=== PATIENT | female | born 1955 | race Caucasian/White ===

== ENCOUNTER → 2017-01-13 | Outpatient (CLI) | payer OTHER ==
[~2017-01-13] MED LIST: PHEN37.585 PO
== END | disposition home or self-care (01) ==
LOC: C.LABSPEC 17:23
PROVIDERS: ATTEND Dermatology
DX: I87.2 Venous insufficiency (chronic) (peripheral) (principal)

== ENCOUNTER → 2017-01-13 | Outpatient (CLI) | payer OTHER | END | disposition home or self-care (01) | LOC: C.PATHSPEC 17:35 | PROVIDERS: ATTEND Dermatology | DX: B07.9 Viral wart, unspecified (principal); C44.529 Squamous cell carcinoma of skin of other part of trunk ==

== ENCOUNTER → 2017-06-05 | Outpatient (CLI) | payer OTHER ==
[2017-06-05 12:04] LABS: BASO % 0.9 %; BASO ABS # 0.04 K/uL (0-0.2); COMPLETE YES; EOS % 1.6 %; HEMATOCRIT 41.7 % (37-47); IG% 0.2 %; LYMPH % 36.8 %; LYMPH ABS # 1.65 K/uL (1.2-3.4); MEAN CELL VOLUME 92.1 fL (80-100); MEAN CORPUSCULAR HEMOGLOBIN 32.5 pg (25-34); MEAN CORPUSCULAR HGB CONC 35.3 g/dl (32-36); MONO % 6.3 %; NEUT % 54.2 %; PLATELET COUNT 171 K/uL (130-400); RED BLOOD COUNT 4.53 M/uL (4.2-5.4); WHITE BLOOD COUNT 4.48 K/uL (4.8-10.8)
[2017-06-05 12:17] LABS: ALT/SGPT 47 U/L (12-78); AST/SGOT 44 U/L (15-37); BLOOD UREA NITROGEN 18 mg/dl (7-18); BUN/CREATININE RATIO 21.6 (10-20); CALCIUM 8.5 mg/dl (8.5-10.1); CARBON DIOXIDE 28 mmol/L (21-32); CHLORIDE 106 mmol/L (98-107); CREATININE 0.82 mg/dl (0.60-1.20); GLUCOSE 112 mg/dl (70-99); POTASSIUM 3.9 mmol/L (3.5-5.1); SODIUM 139 mmol/L (136-145)
[2017-06-05 12:28] LABS: ALB/GLOB RATIO 1.2 (0.9-2); ALKALINE PHOSPHATASE 118 U/L (45-117)
== END | disposition home or self-care (01) ==
LOC: C.LAB1850 10:08
PROVIDERS: ATTEND Family Medicine
DX: Z00.00 Encounter for general adult medical examination without abnormal findings (principal)

== ENCOUNTER → 2017-09-16 | Outpatient (CLI) | payer OTHER | END | disposition home or self-care (01) | LOC: C.LABSPEC 12:32 | PROVIDERS: ATTEND Physician Assistant | DX: N89.8 Other specified noninflammatory disorders of vagina (principal); M54.5 Low back pain ==

== ENCOUNTER → 2017-09-29 | Outpatient (CLI) | payer OTHER | END | disposition home or self-care (01) | LOC: C.PAPS 10:24 | PROVIDERS: ATTEND Obstetrics & Gynecology | DX: Z01.419 Encounter for gynecological examination (general) (routine) without abnormal findings (principal) ==

== ENCOUNTER → 2018-01-05 | Outpatient (CLI) | payer OTHER ==
[2018-01-05 13:06] LABS: HEMOGLOBIN A1C 4.7 % (4.5-5.6)
[2018-01-05 13:11] LABS: ALKALINE PHOSPHATASE 107 U/L (45-117); ALT/SGPT 27 U/L (12-78); AST/SGOT 22 U/L (15-37); BLOOD UREA NITROGEN 11 mg/dl (7-18); CALCIUM 8.9 mg/dl (8.5-10.1); CARBON DIOXIDE 27 mmol/L (21-32); CHOLESTEROL 166 mg/dl (0-200); CREATININE 0.84 mg/dl (0.60-1.20); GLUCOSE 86 mg/dl (70-99); LDL CHOLESTEROL CALCULATED 94 mg/dl; SODIUM 139 mmol/L (136-145); TOTAL PROTEIN 7.3 gm/dl (6.4-8.2)
== END | disposition home or self-care (01) ==
LOC: C.LAB1850 10:32
PROVIDERS: ATTEND Family Medicine
DX: R74.8 Abnormal levels of other serum enzymes (principal); I10 Essential (primary) hypertension; E55.9 Vitamin D deficiency, unspecified; E88.81 Metabolic syndrome and other insulin resistance

== ENCOUNTER 2021-09-10 17:23 | Inpatient (IN) ==
[2021-09-10 17:58] LABS: Basophils # (auto) 0.02 K/uL (0-0.2); Basophils % (auto) 0.3 %; Eosinophils % (auto) 1.7 %; Hematocrit (blood only) 42.9 % (37-47); Hemoglobin 15.1 g/dL (12.0-16.0); Immature Granulocytes # (auto) 0.01 K/uL (0.00-0.02); Immature Granulocytes % (auto) 0.2 %; Lymphocytes # (auto) 1.68 K/uL (1.2-3.4); Lymphocytes % (auto) 28.7 %; Mean Corpuscular Hgb Conc 35.2 g/dL (32-36); Mean Corpuscular Volume 90.9 fL (80-100); Mean Platelet Volume 9.7 fL (7.4-10.4); Monocytes # (auto) 0.45 K/uL (0.11-0.59); Monocytes % (auto) 7.7 %; Neutrophils # (auto) 3.59 K/uL (1.4-6.5); Neutrophils % (auto) 61.4 %; Platelet Count 157 K/uL (130-400); RDW Coefficient of Variation 13.4 % (11.5-14.5); RDW Standard Deviation 44.4 fL (36.4-46.3); Red Blood Count 4.72 M/uL (4.2-5.4); White Blood Count 5.85 K/uL (4.8-10.8)
[2021-09-10 18:12] LABS: Appearance Urine Clear (Clear); Bacteria Urine Automated Negative (Negative); Bilirubin Urine Negative (Negative); Blood Urine 1+ (Negative); Cast Urine Automated 0 /lpf (0-5); Color Urine Yellow; Epithelial Cell Urine Auto 0-5 /lpf (0-5); Glucose Urine UA Negative (Negative); Ketones Urine Negative (Negative); Leukocyte Esterase Urine Negative (Negative); Nitrite Urine Negative (Negative); Protein Urine Negative (Negative); RBC Urine Automated 0-4 /hpf (0-4); Specific Gravity Urine 1.007 (1.000-1.030); Urobilinogen Urine Negative (Negative); pH Urine 6.5 (4.5-7.5)
[2021-09-10] MEDS ORDERED: NITROGLYCERIN 2% OINTMENT 30GM TUBE EXT STA ×2 (18:23→19:42)
[2021-09-10] MEDS ORDERED: ASPIRIN CHEW 324 MG PO STA (18:23)
--- NOTE | 2021-09-10 18:29 | Emergency Department Note ---
Impression & Plan Precordial chest pain, Hypertension, Elevated troponin ED Provider Note NAME: TIMMY MCLAUGHLIN AGE: 66 SEX: F : 1955 ARRIVES VIA: Walk-In INFORMANT: [Patient] ED PROVIDER(S): [Kings Falk MD] CHIEF COMPLAINT: Hypertension, chest pain HISTORY OF PRESENT ILLNESS: The patient is a 66-year-old female who presents with about 5 hours of right sided chest pressure that seemed to move down the right arm. She felt some into her neck as well. The pressure was mild at a 3/10. The patient was active when things began, she did not think increased activity worsened things per se. She states that since resting here in the ER, she does feel a bit better. The patient's blood pressure was high today at 167/105. She does take losartan for blood pressure. The patient denies any shortness of breath, nausea or sweating. She has no diagnosed coronary disease however her father, mother and sister have coronary disease. The patient did have a stress test years ago and did well. The patient spoke with cardiology, she was referred to the ER for work-up. REVIEW OF SYSTEMS: See HPI for pertinent positives and negatives. A total of ten systems were reviewed and were otherwise negative. PMHx/PSHx: See Below SOCIAL HISTORY: See Below. PHYSICAL EXAM: GENERAL: Patient is in no acute distress. HEENT: No acute trauma, normocephalic atraumatic, mucous membranes moist, no nasal congestion, no scleral icterus. NECK: No stridor, no adenopathy, no meningismus, trachea is midline. LUNGS: Clear to auscultation bilaterally, no wheeze, no rhonchi, breath sounds equal. Chest: Nontender chest wall. HEART: Without murmurs gallops or rubs, regular rate and rhythm. ABDOMEN: Soft, nontender, bowel sounds positive, no hernias, no peritonitis. EXTREMITIES: No cyanosis or edema, full range of motion of all the joints without pain or difficulty, no signs for acute trauma. NEUROLOGIC: Oriented x 3, no acute motor or sensory deficits, no focal weakness. SKIN: No rash, no jaundice, no diaphoresis. DIFFERENTIAL DIAGNOSIS: Cardiac ischemia, aortic dissection, pulmonary embolism, pneumothorax, pneumonia, pericarditis, myocarditis, esophageal rupture, GERD, cholecystitis, pancreatitis, musculoskeletal, as well as other pathologies. EMERGENCY DEPARTMENT COURSE/PROCEDURES: ECG: Indication was chest pain. The ECG shows a normal sinus rhythm with a rate of 75. There is no ST elevation, no PVCs. The QTC is 444 Continuous Cardiac Monitoring: An order was placed for continuous cardiac monitoring. The monitor shows a rate of 78 with normal sinus rhythm. MEDICAL DECISION MAKING: There is no leukocytosis or concerning anemia. There is a normal platelet count. No significant electrolyte abnormality or renal failure. No concerning liver enzyme elevation. No evidence for thyroid dysfunction. ECG shows a normal sinus rhythm, no obvious ischemia. Cardiac enzyme testing x1 is slightly elevated consistent with cardiac injury or strain. Urinalysis does not show infection. Chest x-ray does not show CHF, pneumonia or pneumothorax. On exam, there was no chest wall soreness. The patient was no longer having any real chest discomfort while resting on the stretcher. The patient was given oral aspirin, she was given nitroglycerin paste. Patient presents with precordial chest pain with some pain radiation to her right arm. She does have a strong family history of coronary disease. She has an elevated troponin. With her history, with her laboratory findings, I do think a hospital stay is warranted. I spoke with the patient, I talked with case management. The on-call hospitalist was consulted. Past Med/Surg History Medical History Anxiety Basal cell carcinoma (BCC) hx Benign essential hypertension Chronic low back pain Depression History of squamous cell carcinoma in situ of skin Hx of varicose veins Internal hemorrhoids Osteoporosis Tubular adenoma of colon Vitamin D deficiency Surgical History H/O abdominoplasty History of basal cell carcinoma (BCC) excision History of bunionectomy History of section History of colonoscopy History of repair of rotator cuff History of squamous cell carcinoma excision Hx of breast implants, bilateral S/P tubal ligation Family History (Updated 07/03/21 @ 11:24 by Fabiola Mena RN) Father , Jun 2020 Diabetes Coronary heart disease Mother Osteoporosis Coronary heart disease Sister Coronary heart disease Sarcoidosis Lung disease Other Heart disease No family history of adverse response to anesthesia Denies family history of Ovarian cancer Prostate cancer Myocardial infarction Breast cancer Lung cancer Colorectal cancer Uterine cancer Social History Smoking Status: Never smoker Second Hand Exposure: No; Hx Alcohol Use: Yes Alcohol type: hard liquor Alcohol Intake Frequency Comment: SOCIALLY Hx Substance Use: No Preferred Language: Thai Communication Ability: Effective Visual Impairment: No Limitations Hearing Ability: Normal 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 Beliefs That Will Affect Care: None marital status: Current Living Situation: Alone 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al status: employed 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: [employer]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[employer] AT [employer] Feels Safe at Home: Yes caffeine: Yes during the past year weight has: increased > 10 lbs Dental Care, Regularly: Yes Physical Activity Frequency: 1-2 Times per Week Seatbelt Use: always Sunscreen Use: Yes Assistive Devices: Contacts and Glasses Allergies Allergies Allergy/AdvReac Type Severity Reaction Status Date / Time No Known Drug Allergies Allergy Unknown Verified 09/05/21 09:31 Home Meds Previous Rx's Medication Instructions Recorded hydroxyzine HCl 25 mg tablet 25 mg PO Q8H PRN #30 tab 09/12/20 bupropion HCl 300 mg 24 hr tablet, 300 mg PO QAM #90 tab 06/06/21 extended release losartan 50 mg tablet 50 mg PO QAM #90 tab 06/06/21 naproxen 500 mg tablet 500 mg PO .COMPLEX #60 tab 07/03/21 estradiol 10 mcg vaginal tablet See Rx Instructions PV .COMPLEX 90 09/03/21 Days #24 tab Results & Data (ED) Vital Signs Vital Signs - 24 hr 09/10/21 17:27 09/10/21 17:52 09/10/21 19:24 Temperature 36.8 C Temperature Source Oral Pulse Rate 79 Pulse Rate [Finger] 78 75 Pulse Rhythm [Finger] Regular Regular Pulse Strength [Finger] Normal Normal Respiratory Rate 20 18 16 Respiratory Effort / Characteristics Non-Labored Non-Labored Spontaneous Respiratory Depth Normal Normal Respiratory Pattern Regular Blood Pressure 176/116 H Blood Pressure [Right Arm] 149/108 H 164/100 H Blood Pressure Mean 136 Blood Pressure Mean [Right Arm] 121 121 Blood Pressure Position Sitting Blood Pressure Position [Right Arm] Sitting Semi-fowlers Pulse Oximetry 99 100 98 Oxygen Delivery Method Room Air Room Air Room Air Sepsis Recent Fever Within 48 Hours No Sepsis New/Unexplained Change in Mental Status No Sepsis Action Taken by Nursing No Action Required Home Medications Current Medication List: was personally reviewed by me Laboratory Data Attestation: I reviewed the patient's lab results. Result diagrams: 09/10/21 17:45 09/10/21 17:45 Lab Results 09/10/21 09/10/21 09/10/21 Range/Units 17:45 17:45 17:45 WBC 5.85 (4.8-10.8) K/uL RBC 4.72 (4.2-5.4) M/uL Hgb 15.1 (12.0-16.0) g/dL Hct 42.9 (37-47) % MCV 90.9 (80-100) fL MCH 32.0 (25-34) pg MCHC 35.2 (32-36) g/dL RDW Std Deviation 44.4 (36.4-46.3) fL RDW Coeff of Calli 13.4 (11.5-14.5) % Plt Count 157 (130-400) K/uL MPV 9.7 (7.4-10.4) fL Immature Gran % (Auto) 0.2 % Neut % (Auto) 61.4 % Lymph % (Auto) 28.7 % [place] % (Auto) 7.7 % Eos % (Auto) 1.7 % Baso % (Auto) 0.3 % Neut # (Auto) 3.59 (1.4-6.5) K/uL Lymph # (Auto) 1.68 (1.2-3.4) K/uL [place] # (Auto) 0.45 (0.11-0.59) K/uL Eos # (Auto) 0.10 (0-0.5) K/uL Baso # (Auto) 0.02 (0-0.2) K/uL Immature Gran # (Auto) 0.01 (0.00-0.02) K/uL Sodium 138 (136-145) mmol/L Potassium 3.9 (3.5-5.1) mmol/L Chloride 104 (98-107) mmol/L Carbon Dioxide 26 (21-32) mmol/L Anion Gap 8 (3-11) BUN 15 (6-23) mg/dl Creatinine 0.85 (0.6-1.2) mg/dl Est Cr Clr Drug Dosing 74.3 ml/min Est GFR ( Amer) 83.9 ml/min Est GFR (Non-Af Amer) 72.4 ml/min BUN/Creatinine Ratio 17.6 (10-20) Glucose 99 (70-99(Fasting)) mg/dl Calcium 8.9 (8.5-10.1) mg/dl Magnesium (1.7-2.4) mg/dl Total Bilirubin 0.6 (0.2-1.0) mg/dl AST 17 (13-39) U/L ALT 16 (7-52) U/L Alkaline Phosphatase 95 (34-104) U/L Troponin I (0-0.04) ng/ml Total Protein 6.8 (6.0-8.3) gm/dl Albumin 4.1 (3.4-5.0) gm/dl Globulin 2.7 (2.5-4.0) gm/dl Albumin/Globulin Ratio 1.5 (0.9-2) TSH (0.300-4.500) uIu/ml Urine Color Yellow Urine Appearance Clear (Clear) Urine pH 6.5 (4.5-7.5) Ur Specific [place] 1.007 (1.000-1.030) Urine Protein Negative (Negative) Urine Glucose (UA) Negative (Negative) Urine Ketones Negative (Negative) Urine Blood 1+ H (Negative) Urine Nitrite Negative (Negative) Urine Bilirubin Negative (Negative) Urine Urobilinogen Negative (Negative) Ur Leukocyte Esterase Negative (Negative) Urine WBC (Auto) 1-5 (0-5) /hpf Urine RBC (Auto) 0-4 (0-4) /hpf U Hyaline Cast (Auto) 0 (0-5) /lpf U Epithel Cells (Auto) 0-5 (0-5) /lpf Urine Bacteria (Auto) Negative (Negative) 09/10/21 09/10/21 Range/Units 17:45 17:45 WBC (4.8-10.8) K/uL RBC (4.2-5.4) M/uL Hgb (12.0-16.0) g/dL Hct (37-47) % MCV (80-100) fL MCH (25-34) pg MCHC (32-36) g/dL RDW Std Deviation (36.4-46.3) fL RDW Coeff of Calli (11.5-14.5) % Plt Count (130-400) K/uL MPV (7.4-10.4) fL Immature Gran % (Auto) % Neut % (Auto) % Lymph % (Auto) % [place] % (Auto) % Eos % (Auto) % Baso % (Auto) % Neut # (Auto) (1.4-6.5) K/uL Lymph # (Auto) (1.2-3.4) K/uL [place] # (Auto) (0.11-0.59) K/uL Eos # (Auto) (0-0.5) K/uL Baso # (Auto) (0-0.2) K/uL Immature Gran # (Auto) (0.00-0.02) K/uL Sodium (136-145) mmol/L Potassium (3.5-5.1) mmol/L Chloride (98-107) mmol/L Carbon Dioxide (21-32) mmol/L Anion Gap (3-11) BUN (6-23) mg/dl Creatinine (0.6-1.2) mg/dl Est Cr Clr Drug Dosing ml/min Est GFR ( Amer) ml/min Est GFR (Non-Af Amer) ml/min BUN/Creatinine Ratio (10-20) Glucose (70-99(Fasting)) mg/dl Calcium (8.5-10.1) mg/dl Magnesium 1.8 (1.7-2.4) mg/dl Total Bilirubin (0.2-1.0) mg/dl AST (13-39) U/L ALT (7-52) U/L Alkaline Phosphatase (34-104) U/L Troponin I 0.08 H* (0-0.04) ng/ml Total Protein (6.0-8.3) gm/dl Albumin (3.4-5.0) gm/dl Globulin (2.5-4.0) gm/dl Albumin/Globulin Ratio (0.9-2) TSH 2.850 (0.300-4.500) uIu/ml Urine Color Urine Appearance (Clear) Urine pH (4.5-7.5) Ur Specific [place] (1.000-1.030) Urine Protein (Negative) Urine Glucose (UA) (Negative) Urine Ketones (Negative) Urine Blood (Negative) Urine Nitrite (Negative) Urine Bilirubin (Negative) Urine Urobilinogen (Negative) Ur Leukocyte Esterase (Negative) Urine WBC (Auto) (0-5) /hpf Urine RBC (Auto) (0-4) /hpf U Hyaline Cast (Auto) (0-5) /lpf U Epithel Cells (Auto) (0-5) /lpf Urine Bacteria (Auto) (Negative) Administered Medications Discontinued Medications Aspirin (Aspirin Chew 324 Mg) 324 mg PO NOW STA Stop: 09/10/21 18:24 Last Admin: 09/10/21 18:28 Dose: 324 mg Documented by: [id number] Nitroglycerin (Nitroglycerin 2% Ointment 30gm Tube) 1 inch EXT NOW STA Stop: 09/10/21 18:24 Last Admin: 09/10/21 18:32 Dose: 1 inch Documented by: [id number] Imaging Data Radiologist's Impression: Chest X-Ray 09/10/21 17:30 SINGLE VIEW CHEST CLINICAL HISTORY: Chest tightness. FINDINGS: An AP, portable, upright chest radiograph is compared to study dated 02/17/2020. Correlation is made with chest CT dated 12/25/2018. The cardiomediastinal silhouette is unremarkable. There is mild elevation of the right hemidiaphragm and bibasilar atelectasis. No airspace consolidation or large pleural effusion is identified. No pneumothorax is seen. The skeletal structures are osteopenic. The bony thorax is grossly intact. Degenerative change is noted in the shoulders and thoracic spine. IMPRESSION: No acute cardiopulmonary abnormality. ACT 112: Negative or not required by law. Electronically signed by: Kings Grant M.D. 09/10/2021 6:40 PM Discharge Plan Visit Data Chief Complaint: Hypertension Stated Complaint: HYPERTENSIVE, CHEST PRESSURE ED Provider: Kings Falk Discharge Problem: Precordial chest pain, Hypertension, Elevated troponin Patient Disposition: Admitted As Inpatient Condition: Fair Forms Stand Alone Forms: My [employer] Prescriptions Prescriptions: No Action bupropion HCl 300 mg tablet extended release 24 hr 300 mg PO QAM Qty: 90 RF: 1 losartan 50 mg tablet 50 mg PO QAM Qty: 90 RF: 1 estradiol 10 mcg tablet See Rx Instructions PV .COMPLEX 90 Days Qty: 24 RF: 1 hydroxyzine HCl 25 mg tablet 25 mg PO Q8H PRN (Reason: anxiety) Qty: 30 RF: 1 naproxen 500 mg tablet 500 mg PO .COMPLEX Qty: 60 RF: 1 Referrals Referrals: Ricotta,Mary M., DO [Primary Care Provider] -
[2021-09-10 18:30] LABS: Albumin Globulin Ratio 1.5 (0.9-2); Albumin Level 4.1 gm/dl (3.4-5.0); BUN Creatinine Ratio 17.6 (10-20); Bilirubin,Total 0.6 mg/dl (0.2-1.0); Calcium 8.9 mg/dl (8.5-10.1); Creatinine Clr Calc Pharmacy 74.3 ml/min; Est GFR (African American) 83.9 ml/min; Est GFR (Non-African American) 72.4 ml/min; Globulin 2.7 gm/dl (2.5-4.0); Potassium 3.9 mmol/L (3.5-5.1); Total Protein 6.8 gm/dl (6.0-8.3)
--- NOTE | 2021-09-10 18:42 | XRay Report ---
SINGLE VIEW CHEST CLINICAL HISTORY: Chest tightness. FINDINGS: An AP, portable, upright chest radiograph is compared to study dated 02/17/2020. Correlation is made with chest CT dated 12/25/2018. The cardiomediastinal silhouette is unremarkable. There is mi ld elevation of the right hemidiaphragm and bibasilar atelectasis. No airspace consolidation or large pleural effusion is identified. No pneumothorax is seen. The skeletal structures are osteopenic. The bony thorax is grossly intact. Degenerative change is noted in the shoulders and thoracic spine. IMPRESSION: No acute cardiopulmonary abnormality. ACT 112: Negative or not required by law. Electronically signed by: Kings Grant M.D. 09/10/2021 6:40 PM
[2021-09-10 19:31] LABS: Magnesium 1.8 mg/dl (1.7-2.4)
[2021-09-10 19:35] LABS: Troponin I 0.08 ng/ml (0-0.04)
--- NOTE | 2021-09-10 20:59 | History & Physical Report ---
Date of Service September 10, 2021 Assessment & Plan (1) Chest pain: Plan: Chest pain with activity presenting as cardiac in nature but uncertain etiology at this time - Elevated Troponin I with no dynamic ECG changes- trend both for peak and down trend or association with ECG changes - BP control to decrease double product- Labetolol PRN - NTG SL for chest pain - ECG with chest pain - Consider adding BB but may be limited with HR response - Symptoms currently gone - Pending her further troponin and symptomatology through the night - consider stress ECHO or invasive diagnostics - ECHO in AM (2) Elevated troponin: Plan: As above follow may be associated with elevated BP or associated with CAD (3) Hypertension: Plan: Uncontrolled with SBP baseline > 140 and DBP >90 - As above- will increase her Losartan to 100mg daily - renal indices normal and no protein in urine (4) Depression: Plan: Continue Bupropion (5) Anxiety: Plan: Continue Bupropion Continue Hydroxyzine (6) Dysmetabolic syndrome X: Plan: Lipid panel in the morning HGB A1c in morning weight loss History of Present Illness Primary Care Provider: Mary Castaneda, DO 66 YOF with past medical history of: HTN, atrophic vaginitis, obesity. Patient comes to the ER today for complaints of right sided chest pain while at work. 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 She did not stop working at that time. She did note that this was associated with right arm pain that went down to her elbow, and was also associated with nausea without vomiting. The pain was described as a pressure that just "hurt". She did leave work and went to her mother's house because she had a BP cuff and took her blood pressure noting that it was 160/100s. She called her PCP who discussed the case with her cardiology office and recommended patient come in for risk stratification. Patient denies this occurring previously, however does endorse noticing to be more short of breath with walking or going up and down her steps. She attributed this to increase in weight over the past couple months. Her dyspnea going up ~ 16 steps is associated with some pain in her upper left sternum and is relieved with rest. In the EMD the patient was given an asa and had topical nitro paste placed. She had an ECG performed which was without dynamic ST changes. She had routine labs drawn to include Troponin I and CXR. CXR was negative for acute cardio/pulmonary process, her Troponin I was elevated to 0.08. Upon evaluation the patient's BP was back to her baseline of 140/90. The patient has risk factors of family history of mother, dad, and sister with coronary stents or coronary interventions. Patient had a holter monitor from 2019 for palpitations hich was negative for arrythmia other than PAC and PVCs - she had a excercise stress test in 2019 that was negative for ischemia at 87% MPHR- and normal LVEF. She has uncontrolled HTN, does not smoke and social drinker. She is not on a daily asa or statin. Patient will be observed overnight, trend her Troponin I and ECG. Will remove her NTP to know if she is having symptoms or not. Will increase her Losartan to 100mg and add Labetalol IV PRN for SBP >180 and/OR DBP> 90. Allergies Allergy/AdvReac Type Severity Reaction Status Date / Time No Known Drug Allergies Allergy Unknown Verified 09/10/21 20:52 Home Medications Medication Instructions Recorded Confirmed Type hydroxyzine HCl 25 mg tablet 25 mg PO Q8H PRN #30 tab 09/12/20 09/10/21 Rx bupropion HCl 300 mg 24 hr tablet, 300 mg PO QAM #90 tab 06/06/21 09/10/21 Rx extended release losartan 50 mg tablet 50 mg PO QAM #90 tab 06/06/21 09/10/21 Rx estradiol 10 mcg vaginal tablet 10 mcg PV 2XWK 09/10/21 09/10/21 History naproxen 500 mg tablet 500 mg PO BID PRN 09/10/21 09/10/21 History Past Med/Surg History Medical History Anxiety Basal cell carcinoma (BCC) hx Benign essential hypertension Chronic low back pain Depression History of squamous cell carcinoma in situ of skin Hx of varicose veins Internal hemorrhoids Osteoporosis Tubular adenoma of colon Vitamin D deficiency Surgical History H/O abdominoplasty History of basal cell carcinoma (BCC) excision History of bunionectomy History of section History of colonoscopy History of repair of rotator cuff History of squamous cell carcinoma excision Hx of breast implants, bilateral S/P tubal ligation Family History Father , Jun 2020 Diabetes Coronary heart disease Mother Osteoporosis Coronary heart disease Sister Coronary heart disease Sarcoidosis Lung disease Other Heart disease No family history of adverse response to anesthesia Denies family history of Ovarian cancer Prostate cancer Myocardial infarction Breast cancer Lung cancer Colorectal cancer Uterine cancer Social History Smoking Status: Never smoker Second Hand Exposure: No; Hx Alcohol Use: Yes Alcohol type: hard liquor Alcohol Intake Frequency Comment: SOCIALLY Hx Substance Use: No Preferred Language: French Communication Ability: Effective Visual Impairment: No Limitations Hearing Ability: Normal Incident Response Consultant Required: No Beliefs That Will Affect Care: None marital status: Current Living Situation: Alone 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al status: employed 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 [employer] Feels Safe at Home: Yes caffeine: Yes during the past year weight has: increased > 10 lbs Dental Care, Regularly: Yes Physical Activity Frequency: 1-2 Times per Week Seatbelt Use: always Sunscreen Use: Yes Assistive Devices: Contacts and Glasses Review of Systems Review of Systems: REVIEW OF SYSTEMS: Constitutional: No fever, sweats or chills Eyes: No diplopia, no worsening or blurred vision ENT: normal hearing, no trouble swallowing Respiratory: (+) dyspnea, No cough, sputum, dyspnea at rest or on exertion Cardiovascular: (+) chest pain, tightness, NO palpitations Abdomen: No pain, nausea, vomiting, diarrhea or constipation Musculoskeletal: No joint pain, calf pain, swelling Neurologic: No weakness, numbness/tingling, or balance problems Psychiatric: No anxiety or depression Skin: No rash or itch Physical Exam Physical Exam: PHYSICAL EXAM: General: awake, alert, no apparent distress Head: Normocephalic, atraumatic ENT: PERRL, EOMI, no pharyngeal exudate, mucous membranes moist Neuro: AAO x 3, speech clear and appropriate, strength intact bilaterally 5/5, sensation intact and equal all extremities and dermatomes, no pronator drift Chest: equal rise and fall of the chest, no accessory muscle use, no heaves or thrills, Clear to auscultation, on room air, Cardiac: Regular rate and rhythm, telemetry reviewed, skin warm dry, cap refill <3 seconds, peripheral pulses +2 no JVD, no murmur, no edema- noted HTN GI: NABS x 4 quadrants, soft, nontender to palpation, no rebound, guarding or tenderness : Spontaneously voiding, no pain, no CVA tenderness, Extremities: Normal inspection, no peripheral edema or erythema, calfs nontender to palpation Psych: Normal mood and affect Skin: no rash or erythema Results & Data Results & Data ([facility]) Vital Signs (Past 12 Hours) Vital Signs Temp Pulse Pulse Resp BP BP Pulse Ox 09/10/21 19:24 75 16 164/100 H 98 09/10/21 17:52 78 18 149/108 H 100 09/10/21 17:27 36.8 C 79 20 176/116 H 99 Laboratory Results Abnormal lab results 09/10/21 09/10/21 Range/Units 17:45 17:45 Troponin I 0.08 H* (0-0.04) ng/ml Urine Blood 1+ H (Negative) HgbA1C on 09/26/20 = 5.1 Lipid panel on 09/26/20 = Dlljy=422, HBT=366, HDL=48, CH=390 Diagnostic Findings Chest X-Ray 09/10/21 17:30 SINGLE VIEW CHEST CLINICAL HISTORY: Chest tightness. FINDINGS: An AP, portable, upright chest radiograph is compared to study dated 02/17/2020. Correlation is made with chest CT dated 12/25/2018. The cardiomediastinal silhouette is unremarkable. There is mild elevation of the right hemidiaphragm and bibasilar atelectasis. No airspace consolidation or large pleural effusion is identified. No pneumothorax is seen. The skeletal structures are osteopenic. The bony thorax is grossly intact. Degenerative change is noted in the shoulders and thoracic spine. IMPRESSION: No acute cardiopulmonary abnormality. ACT 112: Negative or not required by law. Electronically signed by: Kings Grant M.D. 09/10/2021 6:40 PM Medications Administered Discontinued Medications Aspirin (Aspirin Chew 324 Mg) 324 mg PO NOW STA Stop: 09/10/21 18:24 Last Admin: 09/10/21 18:28 Dose: 324 mg Documented by: [id number] Nitroglycerin (Nitroglycerin 2% Ointment 30gm Tube) 1 inch EXT NOW STA Stop: 09/10/21 18:24 Last Admin: 09/10/21 18:32 Dose: 1 inch Documented by: [id number] Nitroglycerin (Nitroglycerin 2% Ointment 30gm Tube) 2 inch EXT NOW STA Stop: 09/10/21 19:43 Last Admin: 09/10/21 20:18 Dose: 2 inch Documented by: [id number] Additional Comments: Normal sinus rhythm Possible Left atrial enlargement Borderline ECG When compared with ECG of 29-APR-2006 09:54, QT has lengthened Code Status & VTE Plan Code Status CODE: FULL VTE: SCDs, Lovenox, ambulation VTE Prophylaxis Plan VTE Prophylaxis will be ordered: Yes Supervising Physician Co-Signing Physician Notes Patient seen and examined, chart reviewed, case discussed with NICOL Monique and I agree with the assessment and plan as above. In brief, patient is a pleasant 66yo female with history of HTN - poorly controlled of late - presenting with right sided chest pain while at work - radiation down right arm with nausea and vomiting. Some SOB with exertion and substernal chest discomfort with stairs. On exam patient is hypertensive, otherwise HD stable, NAD, CP free, topical nitro in place Skin - warm, dry, intact, no rashes/lesions HEENT - NC/AT, PERRL, MMM, Neck supple, No JVD, No bruits Heart - +S1/S2, regular, no m/r/g, no reproducible chest wall pain Lungs - CTA Abd - +BS, soft, NT/ND Ext- No edema Labs and images reviewed Troponin = 0.08 Last stress test 2018 - no inducible ischemia, 87% capacity Assessment/Plan - 66yo female with history of HTN presenting with right sided chest pain, elevated troponin of 0.08. -Trend troponin -Telemetry monitoring -Blood pressure control -2D echo -Possible cath vs stress in AM -Repeat A1C and lipids for risk stratification -Increase Losartan to 100mg daily for now to optimize BP PG Care Time/CCT Total # of Minutes Spent Total Time Spent with Patient: Total time spent is greater than 50% in coordination of care (as documented) at patient's floor/unit and/or counseling patient: Coding Level of Care Code INT OBSERVATION CARE 70M LVL 3 Diagnoses Chest pain R07.9 Elevated troponin R77.8 Hypertension I10 Hypertension type: unspecified Depression F32.9 Anxiety F41.9 Dysmetabolic syndrome X E88.81 (1) Hypertension Hypertension type: unspecified Qualified Code(s): I10 - Essential (primary) hypertension
[2021-09-10] MEDS ORDERED: LABETALOL HCL IV 5 MG/ML 20ML IV PRN (22:51)
[2021-09-10] MEDS ORDERED: NITROGLYCERIN SL 0.4 MG/TAB TAB SL PRN (22:51)
[2021-09-10] MEDS ORDERED: hydrOXYzine HCl 25 MG TAB PO PRN (22:51)
[2021-09-10] MEDS ORDERED: ACETAMINOPHEN 325 MG TAB PO PRN (22:51)
[2021-09-11] MEDS: ENOXAPARIN INJ 40 MG/0.4 ML SYR SQ SCH ×2 (00:49→20:47)
--- NOTE | 2021-09-11 07:51 | Hospitalist Progress Note ---
Date of Service September 11, 2021 Assessment & Plan (1) Chest pain: Plan: Chest pain with activity presenting as cardiac in nature at rest/activity and not relieved with rest when she went to her mother's house to check her BP last evening, which was significantly elevated EKG without ischemic changes currently and remains chest pain free with improvement in her blood pressure with increase in losartan to 100mg daily. Labetalol also available prn HTN (avoiding BB given HR 50-60s) Top 0.08--> 0.09 --> 0.08 but did have prodrome of CP/radiation to arm, and given strong family history, personal hx DM, cardiology consulted for eval for cardiac cath --> Had already eaten breakfast, but NPO currently in case able to squeeze in this afternoon per discussion with Dr Magaña today ECHO obtained this morning, not officially read yet ASA 81mg daily ordered A1c wnl Lipid panel with improvement -- statin intensity pending cath report (2) Elevated troponin: Plan: As above follow may be associated with elevated BP or associated with CAD Cards on consult Planning for cardiac catheterization given risk (3) Hypertension: Plan: Uncontrolled with SBP baseline > 140 and DBP >90 Increased losartan to 100mg daily, Cr wnl Bp currently 148/84 Labetalol available prn and continuing monitoring on telemetry (4) Depression: Plan: Continue Bupropion (5) Anxiety: Plan: Continue Bupropion, hydroxyzine (6) Dysmetabolic syndrome X: Plan: A1c 4.6 Lipid panel with improvement compared to prior values -- likely initiation of statin but will await cath and if evidence for CAD would start high intensity statin weight loss recommended -- she states this current episode scared her and she is ready to start taking better care of herself Plan: NPO for possible cath this afternoon if someone available, otherwise will need to be NPO after midnight and plan for AM would change to full admit if staying overnight Admission and Anticipated Discharge Date Admission Date: September 10, 2021 Supervising Physician Co-Signing Physician Notes PA Supervision Note: I did not personally see or examine the patient today, but I verified all hall points of SERAFIN Peace's assessment and plan with the following exceptions/additions: None Subjective Patient evaluated this morning. No further chest pain since admission. Bp improved and discussed continuing increased dose losartan as well as continuing ASA 81mg daily. Trop peak 0.09, repeat 0.08 and discussed could be from BP but will have cards eval to see if needing cath in future given family hx (sister 2 years younger had stent about 1-2 years ago, mom in 50-60s, dad in 70s). If not, can plan for d/c and close follow up. She follows with ángel Contreras and Danny Delcid as outpatient and states has appointment this . Discussed statin -- lipid panel is improved but given family history would want to consider being on something for this,. She states she would prefer not if she could and plans on watching diet/increasing activity. She denies any further nausea as had when she was going to her mom's to check BP as she knew she had a cuff and felt "off" but couldn't put her finger on it. No further recurrence. No chest pain, shortness of breath, reflux, abdominal pain, n/v/d at this time. Hopeful for discharge later today but did discuss if need for cath may require monitoring overnight pending when able to squeeze her in. Review of Systems Review of Systems: All systems reviewed & are unremarkable except as noted in HPI & below Physical Exam Physical Exam: General: awake, alert, no apparent distress, observed walking in the room Head: Normocephalic, atraumatic ENT: PERRL, EOMI, no pharyngeal exudate, mucous membranes moist Resp: CTAB, no w/c/r, on room air CV: RRR, no m/r/g, no edema, pulses palpable GI: +BS, soft, non-tender MSK/Neuro: moves all extremities, CN intact grossly, no facial droop/slurred speech Psych: AOx3, pleasant and cooperative Skin: warm, dry Results & Data Results & Data ([facility]) Vital Signs (Past 12 Hours) Vital Signs Temp Pulse Pulse Resp BP BP BP 09/11/21 06:14 75 09/11/21 03:00 36.5 C 71 20 139/83 09/10/21 23:41 79 09/10/21 22:57 36.6 C 78 18 168/89 H 09/10/21 22:14 83 16 156/92 H 09/10/21 21:00 76 16 162/86 H Pulse Ox 09/11/21 06:14 09/11/21 03:00 98 09/10/21 23:41 09/10/21 22:57 97 09/10/21 22:14 97 09/10/21 21:00 98 Laboratory Results 09/11/21 09/11/21 09/11/21 Range/Units 08:05 08:05 08:05 WBC 4.28 L (4.8-10.8) K/uL RBC 4.54 (4.2-5.4) M/uL Hgb 14.6 (12.0-16.0) g/dL Hct 40.8 (37-47) % MCV 89.9 (80-100) fL MCH 32.2 (25-34) pg MCHC 35.8 (32-36) g/dL RDW Std Deviation 43.6 (36.4-46.3) fL RDW Coeff of Calli 13.4 (11.5-14.5) % Plt Count 141 (130-400) K/uL MPV 9.5 (7.4-10.4) fL Immature Gran % (Auto) 0.0 % Neut % (Auto) 55.7 % Lymph % (Auto) 30.4 % [place] % (Auto) 10.7 % Eos % (Auto) 3.0 % Baso % (Auto) 0.2 % Neut # (Auto) 2.38 (1.4-6.5) K/uL Lymph # (Auto) 1.30 (1.2-3.4) K/uL [place] # (Auto) 0.46 (0.11-0.59) K/uL Eos # (Auto) 0.13 (0-0.5) K/uL Baso # (Auto) 0.01 (0-0.2) K/uL Immature Gran # (Auto) 0.00 (0.00-0.02) K/uL Sodium 140 (136-145) mmol/L Potassium 4.0 (3.5-5.1) mmol/L Chloride 107 (98-107) mmol/L Carbon Dioxide 27 (21-32) mmol/L Anion Gap 6 (3-11) BUN 13 (6-23) mg/dl Creatinine 0.77 (0.6-1.2) mg/dl Est Cr Clr Drug Dosing 82.0 ml/min Est GFR ( Amer) 94.6 ml/min Est GFR (Non-Af Amer) 81.6 ml/min BUN/Creatinine Ratio 16.9 (10-20) Glucose 93 (70-99(Fasting)) mg/dl Estimat Average Glucose 85 mg/dl Hemoglobin A1c 4.6 (4.5-5.6) % Calcium 8.6 (8.5-10.1) mg/dl Magnesium 1.9 (1.7-2.4) mg/dl Total Bilirubin (0.2-1.0) mg/dl AST (13-39) U/L ALT (7-52) U/L Alkaline Phosphatase (34-104) U/L Troponin I 0.08 H* (0-0.04) ng/ml Total Protein (6.0-8.3) gm/dl Albumin (3.4-5.0) gm/dl Globulin (2.5-4.0) gm/dl Albumin/Globulin Ratio (0.9-2) Triglycerides 91 (0-150) mg/dl Cholesterol 185 (0-200) mg/dl LDL Cholesterol, Calc 114 mg/dl VLDL Cholesterol, Calc 18 (0-30) mg/dl HDL Cholesterol 53 mg/dl Cholesterol/HDL Ratio 3.5 (0-5) TSH (0.300-4.500) uIu/ml Urine Color Urine Appearance (Clear) Urine pH (4.5-7.5) Ur Specific [place] (1.000-1.030) Urine Protein (Negative) Urine Glucose (UA) (Negative) Urine Ketones (Negative) Urine Blood (Negative) Urine Nitrite (Negative) Urine Bilirubin (Negative) Urine Urobilinogen (Negative) Ur Leukocyte Esterase (Negative) Urine WBC (Auto) (0-5) /hpf Urine RBC (Auto) (0-4) /hpf U Hyaline Cast (Auto) (0-5) /lpf U Epithel Cells (Auto) (0-5) /lpf Urine Bacteria (Auto) (Negative) SARS-CoV-2, RNA, NAAT (NEGATIVE) 09/10/21 09/10/21 09/10/21 Range/Units 23:26 20:45 17:45 WBC (4.8-10.8) K/uL RBC (4.2-5.4) M/uL Hgb (12.0-16.0) g/dL Hct (37-47) % MCV (80-100) fL MCH (25-34) pg MCHC (32-36) g/dL RDW Std Deviation (36.4-46.3) fL RDW Coeff of Calli (11.5-14.5) % Plt Count (130-400) K/uL MPV (7.4-10.4) fL Immature Gran % (Auto) % Neut % (Auto) % Lymph % (Auto) % [place] % (Auto) % Eos % (Auto) % Baso % (Auto) % Neut # (Auto) (1.4-6.5) K/uL Lymph # (Auto) (1.2-3.4) K/uL [place] # (Auto) (0.11-0.59) K/uL Eos # (Auto) (0-0.5) K/uL Baso # (Auto) (0-0.2) K/uL Immature Gran # (Auto) (0.00-0.02) K/uL Sodium (136-145) mmol/L Potassium (3.5-5.1) mmol/L Chloride (98-107) mmol/L Carbon Dioxide (21-32) mmol/L Anion Gap (3-11) BUN (6-23) mg/dl Creatinine (0.6-1.2) mg/dl Est Cr Clr Drug Dosing ml/min Est GFR ( Amer) ml/min Est GFR (Non-Af Amer) ml/min BUN/Creatinine Ratio (10-20) Glucose (70-99(Fasting)) mg/dl Estimat Average Glucose mg/dl Hemoglobin A1c (4.5-5.6) % Calcium (8.5-10.1) mg/dl Magnesium (1.7-2.4) mg/dl Total Bilirubin (0.2-1.0) mg/dl AST (13-39) U/L ALT (7-52) U/L Alkaline Phosphatase (34-104) U/L Troponin I 0.09 H* (0-0.04) ng/ml Total Protein (6.0-8.3) gm/dl Albumin (3.4-5.0) gm/dl Globulin (2.5-4.0) gm/dl Albumin/Globulin Ratio (0.9-2) Triglycerides (0-150) mg/dl Cholesterol (0-200) mg/dl LDL Cholesterol, Calc mg/dl VLDL Cholesterol, Calc (0-30) mg/dl HDL Cholesterol mg/dl Cholesterol/HDL Ratio (0-5) TSH 2.850 (0.300-4.500) uIu/ml Urine Color Urine Appearance (Clear) Urine pH (4.5-7.5) Ur Specific [place] (1.000-1.030) Urine Protein (Negative) Urine Glucose (UA) (Negative) Urine Ketones (Negative) Urine Blood (Negative) Urine Nitrite (Negative) Urine Bilirubin (Negative) Urine Urobilinogen (Negative) Ur Leukocyte Esterase (Negative) Urine WBC (Auto) (0-5) /hpf Urine RBC (Auto) (0-4) /hpf U Hyaline Cast (Auto) (0-5) /lpf U Epithel Cells (Auto) (0-5) /lpf Urine Bacteria (Auto) (Negative) SARS-CoV-2, RNA, NAAT NEGATIVE (NEGATIVE) 09/10/21 09/10/21 09/10/21 Range/Units 17:45 17:45 17:45 WBC (4.8-10.8) K/uL RBC (4.2-5.4) M/uL Hgb (12.0-16.0) g/dL Hct (37-47) % MCV (80-100) fL MCH (25-34) pg MCHC (32-36) g/dL RDW Std Deviation (36.4-46.3) fL RDW Coeff of Calli (11.5-14.5) % Plt Count (130-400) K/uL MPV (7.4-10.4) fL Immature Gran % (Auto) % Neut % (Auto) % Lymph % (Auto) % [place] % (Auto) % Eos % (Auto) % Baso % (Auto) % Neut # (Auto) (1.4-6.5) K/uL Lymph # (Auto) (1.2-3.4) K/uL [place] # (Auto) (0.11-0.59) K/uL Eos # (Auto) (0-0.5) K/uL Baso # (Auto) (0-0.2) K/uL Immature Gran # (Auto) (0.00-0.02) K/uL Sodium 138 (136-145) mmol/L Potassium 3.9 (3.5-5.1) mmol/L Chloride 104 (98-107) mmol/L Carbon Dioxide 26 (21-32) mmol/L Anion Gap 8 (3-11) BUN 15 (6-23) mg/dl Creatinine 0.85 (0.6-1.2) mg/dl Est Cr Clr Drug Dosing 74.3 ml/min Est GFR ( Amer) 83.9 ml/min Est GFR (Non-Af Amer) 72.4 ml/min BUN/Creatinine Ratio 17.6 (10-20) Glucose 99 (70-99(Fasting)) mg/dl Estimat Average Glucose mg/dl Hemoglobin A1c (4.5-5.6) % Calcium 8.9 (8.5-10.1) mg/dl Magnesium 1.8 (1.7-2.4) mg/dl Total Bilirubin 0.6 (0.2-1.0) mg/dl AST 17 (13-39) U/L ALT 16 (7-52) U/L Alkaline Phosphatase 95 (34-104) U/L Troponin I 0.08 H* (0-0.04) ng/ml Total Protein 6.8 (6.0-8.3) gm/dl Albumin 4.1 (3.4-5.0) gm/dl Globulin 2.7 (2.5-4.0) gm/dl Albumin/Globulin Ratio 1.5 (0.9-2) Triglycerides (0-150) mg/dl Cholesterol (0-200) mg/dl LDL Cholesterol, Calc mg/dl VLDL Cholesterol, Calc (0-30) mg/dl HDL Cholesterol mg/dl Cholesterol/HDL Ratio (0-5) TSH (0.300-4.500) uIu/ml Urine Color Yellow Urine Appearance Clear (Clear) Urine pH 6.5 (4.5-7.5) Ur Specific [place] 1.007 (1.000-1.030) Urine Protein Negative (Negative) Urine Glucose (UA) Negative (Negative) Urine Ketones Negative (Negative) Urine Blood 1+ H (Negative) Urine Nitrite Negative (Negative) Urine Bilirubin Negative (Negative) Urine Urobilinogen Negative (Negative) Ur Leukocyte Esterase Negative (Negative) Urine WBC (Auto) 1-5 (0-5) /hpf Urine RBC (Auto) 0-4 (0-4) /hpf U Hyaline Cast (Auto) 0 (0-5) /lpf U Epithel Cells (Auto) 0-5 (0-5) /lpf Urine Bacteria (Auto) Negative (Negative) SARS-CoV-2, RNA, NAAT (NEGATIVE) 09/10/21 Range/Units 17:45 WBC 5.85 (4.8-10.8) K/uL RBC 4.72 (4.2-5.4) M/uL Hgb 15.1 (12.0-16.0) g/dL Hct 42.9 (37-47) % MCV 90.9 (80-100) fL MCH 32.0 (25-34) pg MCHC 35.2 (32-36) g/dL RDW Std Deviation 44.4 (36.4-46.3) fL RDW Coeff of Calli 13.4 (11.5-14.5) % Plt Count 157 (130-400) K/uL MPV 9.7 (7.4-10.4) fL Immature Gran % (Auto) 0.2 % Neut % (Auto) 61.4 % Lymph % (Auto) 28.7 % [place] % (Auto) 7.7 % Eos % (Auto) 1.7 % Baso % (Auto) 0.3 % Neut # (Auto) 3.59 (1.4-6.5) K/uL Lymph # (Auto) 1.68 (1.2-3.4) K/uL [place] # (Auto) 0.45 (0.11-0.59) K/uL Eos # (Auto) 0.10 (0-0.5) K/uL Baso # (Auto) 0.02 (0-0.2) K/uL Immature Gran # (Auto) 0.01 (0.00-0.02) K/uL Sodium (136-145) mmol/L Potassium (3.5-5.1) mmol/L Chloride (98-107) mmol/L Carbon Dioxide (21-32) mmol/L Anion Gap (3-11) BUN (6-23) mg/dl Creatinine (0.6-1.2) mg/dl Est Cr Clr Drug Dosing ml/min Est GFR ( Amer) ml/min Est GFR (Non-Af Amer) ml/min BUN/Creatinine Ratio (10-20) Glucose (70-99(Fasting)) mg/dl Estimat Average Glucose mg/dl Hemoglobin A1c (4.5-5.6) % Calcium (8.5-10.1) mg/dl Magnesium (1.7-2.4) mg/dl Total Bilirubin (0.2-1.0) mg/dl AST (13-39) U/L ALT (7-52) U/L Alkaline Phosphatase (34-104) U/L Troponin I (0-0.04) ng/ml Total Protein (6.0-8.3) gm/dl Albumin (3.4-5.0) gm/dl Globulin (2.5-4.0) gm/dl Albumin/Globulin Ratio (0.9-2) Triglycerides (0-150) mg/dl Cholesterol (0-200) mg/dl LDL Cholesterol, Calc mg/dl VLDL Cholesterol, Calc (0-30) mg/dl HDL Cholesterol mg/dl Cholesterol/HDL Ratio (0-5) TSH (0.300-4.500) uIu/ml Urine Color Urine Appearance (Clear) Urine pH (4.5-7.5) Ur Specific [place] (1.000-1.030) Urine Protein (Negative) Urine Glucose (UA) (Negative) Urine Ketones (Negative) Urine Blood (Negative) Urine Nitrite (Negative) Urine Bilirubin (Negative) Urine Urobilinogen (Negative) Ur Leukocyte Esterase (Negative) Urine WBC (Auto) (0-5) /hpf Urine RBC (Auto) (0-4) /hpf U Hyaline Cast (Auto) (0-5) /lpf U Epithel Cells (Auto) (0-5) /lpf Urine Bacteria (Auto) (Negative) SARS-CoV-2, RNA, NAAT (NEGATIVE) Diagnostic Findings Chest X-Ray 09/10/21 17:30 SINGLE VIEW CHEST CLINICAL HISTORY: Chest tightness. FINDINGS: An AP, portable, upright chest radiograph is compared to study dated 02/17/2020. Correlation is made with chest CT dated 12/25/2018. The cardiomediastinal silhouette is unremarkable. There is mild elevation of the right hemidiaphragm and bibasilar atelectasis. No airspace consolidation or large pleural effusion is identified. No pneumothorax is seen. The skeletal structures are osteopenic. The bony thorax is grossly intact. Degenerative change is noted in the shoulders and thoracic spine. IMPRESSION: No acute cardiopulmonary abnormality. ACT 112: Negative or not required by law. Electronically signed by: iKngs Grant M.D. 09/10/2021 6:40 PM PG Care Time/CCT Total # of Minutes Spent Total Time Spent with Patient: Total time spent is greater than 50% in coordination of care (as documented) at patient's floor/unit and/or counseling patient: Coding Level of Care Code 17538 Subseq Obs Care Lvl 3 Diagnoses Chest pain R07.9 Elevated troponin R77.8 Hypertension I10 Hypertension type: unspecified Depression F32.9 Anxiety F41.9 Dysmetabolic syndrome X E88.81 (1) Hypertension Hypertension type: unspecified Qualified Code(s): I10 - Essential (primary) hypertension
--- NOTE | 2021-09-11 08:18 | Electrocardiogram Report ---
Test Reason : Blood Pressure : / mmHG Vent. Rate : 075 BPM Atrial Rate : 075 BPM P-R Int : 140 ms QRS Dur : 092 ms QT Int : 398 ms P-R-T Axes : 045 004 026 degrees QTc Int : 444 ms Normal sinus rhythm Left atrial enlargement Borderline ECG When compared with ECG of 29-APR-2006 09:54, No significant change Confirmed by Hector Magaña ([id number]) on 09/11/2021 8:18:37 AM Referred By: REFERRED SELF Confirmed By:Hector Magaña
[2021-09-11 08:34] LABS: Basophils # (auto) 0.01 K/uL (0-0.2); Basophils % (auto) 0.2 %; Eosinophils # (auto) 0.13 K/uL (0-0.5); Hematocrit (blood only) 40.8 % (37-47); Hemoglobin 14.6 g/dL (12.0-16.0); Lymphocytes % (auto) 30.4 %; Mean Corpuscular Hemoglobin 32.2 pg (25-34); Mean Corpuscular Hgb Conc 35.8 g/dL (32-36); Mean Corpuscular Volume 89.9 fL (80-100); Mean Platelet Volume 9.5 fL (7.4-10.4); Monocytes # (auto) 0.46 K/uL (0.11-0.59); Monocytes % (auto) 10.7 %; Neutrophils # (auto) 2.38 K/uL (1.4-6.5); Neutrophils % (auto) 55.7 %; Platelet Count 141 K/uL (130-400); RDW Coefficient of Variation 13.4 % (11.5-14.5); RDW Standard Deviation 43.6 fL (36.4-46.3); Red Blood Count 4.54 M/uL (4.2-5.4); White Blood Count 4.28 K/uL (4.8-10.8)
--- NOTE | 2021-09-11 08:53 | Electrocardiogram Report ---
Test Reason : Blood Pressure : / mmHG Vent. Rate : 064 BPM Atrial Rate : 064 BPM P-R Int : 146 ms QRS Dur : 090 ms QT Int : 422 ms P-R-T Axes : 036 000 018 degrees QTc Int : 435 ms Normal sinus rhythm Normal ECG When compared with ECG of 10-SEP-2021 17:34, No significant change was found Confirmed by Hector Magaña ([id number]) on 09/11/2021 8:53:04 AM Referred By: REFERRED SELF Confirmed By:Hector Magaña
[2021-09-11 09:02] LABS: BUN Creatinine Ratio 16.9 (10-20); Calcium 8.6 mg/dl (8.5-10.1); Chol HDL Ratio 3.5 (0-5); Est GFR (African American) 94.6 ml/min; Est GFR (Non-African American) 81.6 ml/min; Magnesium 1.9 mg/dl (1.7-2.4)
[2021-09-11 09:05] LABS: Troponin I 0.08 ng/ml (0-0.04)
[2021-09-11 09:20] LABS: Estimated Average Glucose 85 mg/dl; Hemoglobin A1C 4.6 % (4.5-5.6)
[2021-09-11] MEDS: buPROPion XL 300 MG TABCR PO SCH (09:37)
[2021-09-11] MEDS: LOSARTAN POTASSIUM 50 MG TAB PO SCH (09:38)
[2021-09-11] MEDS: ASPIRIN 81 MG ECTAB PO SCH (09:38)
--- NOTE | 2021-09-11 11:02 | XCELERA ---
[id number]
--- NOTE | 2021-09-11 13:44 | Cardiology Consultation ---
Date of Consultation September 11, 2021 Assessment & Plan (1) Chest pain: (2) Elevated troponin: (3) Hypertension: Patient with vascular risk factors experiencing typical chest pain with epiphenomenon and elevated troponin, recommend proceeding to cardiac catheterization to definitively include/exclude occlusive coronary artery disease, with revascularization if necessary. Fortunately, her ECG and echocardiogram were benign and she is asymptomatic. Continue aspirin, decide on statin after catheterization. In the absence of recurrent symptoms, no need for heparinization at this time. Blood pressure suboptimally controlled, continue losartan and PRN labetalol. Might benefit from adding hydrochlorothiazide to losartan as outpatient but would not initiate this before her catheterization (diuresis would increase risk of contrast nephropathy). Could use small dose of amlodipine (2.5 mg) short- term for better BP control. This would likely be more effective than a beta- theresa for BP control and she does not seem to need a negative chronotropic agent at this point since her heart rate has been unremarkable. She did have breakfast and the logistics for an afternoon catheterization are more difficult, I spoke with Dr. Delcid and he will attempt to perform cardiac catheterization early tomorrow (Friday) morning. She follows with Dr. Delcid routinely. Further recommendations based on cardiac catheterization results. History of Present Illness Reason for Consultation: Positive troponin Requesting Physician: Samantha Florian MD Attending Physician: Samantha Florian MD History of Present Illness 66-year-old woman with vascular risk factors (strong family history, hypertension, age) but previously negative stress studies (last 2018) who was admitted 09/10/2021 with chest pain and benign ECG but elevated troponin. She notes at recent baseline that she had been experiencing exertional dyspnea and "burning" mid sternal discomfort at higher levels of activity. 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 Symptoms lasted approximately 4 hours, no recurrence after her symptoms dissipated. ECGs overnight were benign. Troponin elevated but with flat profile (0.08, 0.09, 0.08). Echocardiogram showed normal systolic function with no wall motion abnormalities and no significant valvular disease. She felt well at the time of my evaluation today. Allergies Allergy/AdvReac Type Severity Reaction Status Date / Time No Known Drug Allergies Allergy Unknown Verified 09/10/21 20:52 Home Medications Medication Instructions Recorded Confirmed Type hydroxyzine HCl 25 mg tablet 25 mg PO Q8H PRN #30 tab 09/12/20 09/10/21 Rx bupropion HCl 300 mg 24 hr tablet, 300 mg PO QAM #90 tab 06/06/21 09/10/21 Rx extended release losartan 50 mg tablet 50 mg PO QAM #90 tab 06/06/21 09/10/21 Rx estradiol 10 mcg vaginal tablet 10 mcg PV [id number] 09/10/21 09/10/21 History naproxen 500 mg tablet 500 mg PO BID PRN 09/10/21 09/10/21 History Patient History Medical History Anxiety Basal cell carcinoma (BCC) hx Benign essential hypertension Chronic low back pain Depression History of squamous cell carcinoma in situ of skin Hx of varicose veins Internal hemorrhoids Osteoporosis Tubular adenoma of colon Vitamin D deficiency Surgical History H/O abdominoplasty History of basal cell carcinoma (BCC) excision History of bunionectomy LEFT FOOT History of section History of colonoscopy 10/28/14; repeat in 5 years History of repair of rotator cuff History of squamous cell carcinoma excision Hx of breast implants, bilateral S/P tubal ligation Family History Father , Jun 2020 Diabetes Coronary heart disease Mother Osteoporosis Coronary heart disease Sister Coronary heart disease Sarcoidosis Lung disease Other Heart disease No family history of adverse response to anesthesia Denies family history of Ovarian cancer Prostate cancer Myocardial infarction Breast cancer Lung cancer Colorectal cancer Uterine cancer Social History Smoking Status: Never smoker Second Hand Exposure: No; Hx Alcohol Use: Yes Alcohol type: hard liquor Alcohol Intake Frequency Comment: SOCIALLY Hx Substance Use: No Preferred Language: [place] Communication Ability: Effective Visual Impairment: No Limitations Hearing Ability: Normal Fisheries Diver Required: No Beliefs That Will Affect Care: None marital status: Current Living Situation: Alone Current Living Situation Comment: lives in 2 story house alone with dog 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al status: employed 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 BP mildly hypertensive. Pulse 66 bpm and regular without ectopy. Skin: no ecchymoses or generalized lesions. HEENT: unremarkable. Neck: no JVD or carotid bruits. Lungs: clear. Cardiac: regular rhythm, no murmur or gallop. Abdomen: benign. Extremities: no edema, posterior tibial and radial pulses brisk. Neurologic: normal affect and conversation, nonfocal. Results & Data ([facility]) Vital Signs (Past 12 Hours) Vital Signs Temp Pulse Pulse Resp BP BP Pulse Ox 09/11/21 11:16 98.2 F 66 16 148/84 H 97 09/11/21 07:00 97.7 F 65 20 142/84 H 98 09/11/21 06:14 75 09/11/21 03:00 97.7 F 71 20 139/83 98 Laboratory Results Normal electrolytes, BUN 13, creatinine 0.77. Hemoglobin A1c 4.6% WBC 4.28, normal hemoglobin and platelet count. Diagnostic Findings ECG and echo as noted in HPI. Chest x-ray with mild elevation the right hemidiaphragm and bibasilar atelectasis. No acute process. PG Care Time/CCT Total # of Minutes Spent Total Time Spent with Patient: Total time spent is greater than 50% in coordination of care (as documented) at patient's floor/unit and/or counseling patient: Coding Level of Care Code 49400 Inpt Consult Level 4 Diagnoses Elevated troponin R77.8 Chest pain R07.9 Hypertension I10 Hypertension type: unspecified (1) Hypertension Hypertension type: unspecified Qualified Code(s): I10 - Essential (primary) hypertension
[2021-09-11] MEDS ORDERED: amLODIPine BESYLATE 5 MG TAB PO ONE (15:26)
--- NOTE | 2021-09-12 07:47 | Hospitalist Progress Note ---
Date of Service September 12, 2021 Assessment & Plan (1) CAD (coronary artery disease): Plan: Chest pain with activity presenting as cardiac in nature at rest/activity and not relieved with rest when she went to her mother's house to check her BP last evening, which was significantly elevated EKG without ischemic changes currently and remains chest pain free with improvement in her blood pressure with increase in losartan to 100mg daily. Labetalol also available prn HTN (avoiding BB given HR 50-60s) Top 0.08--> 0.09 --> 0.08 but did have prodrome of CP/radiation to arm, and given strong family history, personal hx DM, cardiology consulted for eval for cardiac cath ECHO benign, however felt needs cath. No need for heparin per Cards --> Had already eaten breakfast AM 09/11 and cath moved to today A1c wnl, lipid panel improvement from prior but with CAD as below and high intensity statin warranted Underwent cardiac cath this morning with Dr Delcid CAD s/p OM2 PCI: Had presented with exertional angina. Found to have multivessel CAD including occluded RCA that fills via left to right collaterals. Culprit vessel likely OM 2 which underwent PCI. Recommend aspirin 81 mg daily indefinitely. Plavix 75 mg daily for 1 year. For medical management of residual CAD, recommend beta-theresa. Start high intensity statin therapy. On discharge, recommend sublingual nitroglycerin on an as-needed basis. Developed chest discomfort this afternoon. Nitro x 1 given, BP dropped to 70s systolic following. Repeat EKG prior looked good however area of stent could not show up as abn on EKG Ordered 500cc bolus NSS, repeat BPs looking better. No further CP Dr Chaudhary saw, and going to grab quick ECHO. Could be spasm/not related to CAD but will keep overnight/monitor and check ECHO (2) Elevated troponin: Plan: as above (3) Hypertension: Plan: Uncontrolled with SBP baseline > 140 and DBP >90 Increased losartan to 100mg daily, Cr wnl Given dose 2.5 amlodipine last evening as well Bp currently 135/78 in afternoon Consideration for additional of HCTZ to losartan but would wait and do as outpatient Labetalol available prn and continuing monitoring on telemetry EVENING 09/12 --> HYPOTENSION AFTER NITRO x 1. Had not gotten any metoprolol thus far NSS bolus 500cc ordered Hold further losartan for AM until labs monitored (4) Depression: Plan: Continue Bupropion (5) Anxiety: Plan: Continue Bupropion, hydroxyzine (6) Dysmetabolic syndrome X: Plan: A1c 4.6 Lipid panel with improvement compared to prior values -- CAD as above, Crestor at d/c weight loss recommended -- she states this current episode scared her and she is ready to start taking better care of herself Plan: change to admit, will monitor on telemetry overnight Dr Chaudhary to repeat ECHO given SHONDA to OM2 Admission and Anticipated Discharge Date Admission Date: September 10, 2021 Supervising Physician Co-Signing Physician Notes PA Supervision Note: I personally saw and examined the patient. I verified all hall points and agree with SERAFIN Peace with the following exceptions and/or additions: S-I went to see the patient in the late afternoon to see if she was stable for discharge, but she reported that she had been having right-sided dull chest pain that radiated down the right arm that was a 3 out of 10 in severity and felt exactly like the chest pain that brought her into the hospital 2 days prior. An EKG was obtained which did not show any dynamic changes and was similar to previous. She was given a sublingual nitroglycerin and had immediate drop of her blood pressure to the 70s systolic and felt diaphoretic and lightheaded. She was given a bolus of IV fluids and blood pressures came up fairly quickly and she felt much improved. The chest pain went away with the nitroglycerin. I discussed her care with trimming department blocker at the bedside. O- Vitals reviewed Gen: AAOx3, NAD HEENT: Anicteric sclerae, EOMI CV: RRR no mgr nl S1S2 Pulm: CTAB no wcr Abd: +BS soft NT ND no masses or hernias Ext: No edema, right TR band in place, no hematoma Skin: No rashes, warm/dry Neuro: Full strength throughout A/L-18-avai-old female here with unstable angina and found to have severe CAD now status post drug-eluting stent to the OM 2 with residual disease in LAD and with 100% occluded RCA with collaterals. We will keep her overnight to monitor for any further chest pain Nitroglycerin should be given with caution due to hypotension Likely had some vasospasm but do not suspect in-stent thrombosis Appreciate cardiology management Add on dual antiplatelet therapy with aspirin and Plavix, high intensity statin, metoprolol with hold parameters Subjective Patient evaluated this morning. Doing well. No further episodes of chest pain. Awaiting cardiac catheterization but hopeful to still be go home afterwards depending timing/recovery and how she is feeling. No fever, chills,chest pain, shortness of breath, abd pain, nausea vomiting or dysuria at this time. After cath seen in room 208, had been feeling well, no chest pain/shortness of breath/nausea or other issue but had not been yet out of bed. Discussed ambulating after and possible discharge. Around 4pm patient had recurrence of chest pain and pressure along with nausea and diaphoresis with BP dropped to 87/40s after SL NTG given. EKG obtained benign. Ordered 500NSS bolus and alerted cardiology of issues, arriving at bedside on exit of the room. Review of Systems Review of Systems: All systems reviewed & are unremarkable except as noted in HPI & below Physical Exam Physical Exam: General: awake, alert, no apparent distress Head: Normocephalic, atraumatic ENT: PERRL, EOMI, no pharyngeal exudate, mucous membranes moist Resp: CTAB, no w/c/r, on room air CV: RRR, no m/r/g, no edema, pulses palpable, R radial TR band in place GI: +BS, soft, non-tender MSK/Neuro: moves all extremities, CN intact grossly, no facial droop/slurred speech Psych: AOx3, pleasant and cooperative Skin: warm, dry Results & Data Results & Data ([facility]) Vital Signs (Past 12 Hours) Vital Signs Temp Pulse Pulse Resp BP Pulse Ox 09/12/21 07:32 135/84 65 L 09/12/21 07:21 36.5 C 99 H 16 122/80 95 09/12/21 06:15 60 09/12/21 03:30 36.5 C 73 20 123/85 99 09/11/21 22:58 80 09/11/21 22:00 36.7 C 74 20 133/82 97 Laboratory Results 09/11/21 09/11/21 09/11/21 Range/Units 08:05 08:05 08:05 WBC 4.28 L (4.8-10.8) K/uL RBC 4.54 (4.2-5.4) M/uL Hgb 14.6 (12.0-16.0) g/dL Hct 40.8 (37-47) % MCV 89.9 (80-100) fL MCH 32.2 (25-34) pg MCHC 35.8 (32-36) g/dL RDW Std Deviation 43.6 (36.4-46.3) fL RDW Coeff of Calli 13.4 (11.5-14.5) % Plt Count 141 (130-400) K/uL MPV 9.5 (7.4-10.4) fL Immature Gran % (Auto) 0.0 % Neut % (Auto) 55.7 % Lymph % (Auto) 30.4 % [place] % (Auto) 10.7 % Eos % (Auto) 3.0 % Baso % (Auto) 0.2 % Neut # (Auto) 2.38 (1.4-6.5) K/uL Lymph # (Auto) 1.30 (1.2-3.4) K/uL [place] # (Auto) 0.46 (0.11-0.59) K/uL Eos # (Auto) 0.13 (0-0.5) K/uL Baso # (Auto) 0.01 (0-0.2) K/uL Immature Gran # (Auto) 0.00 (0.00-0.02) K/uL Sodium 140 (136-145) mmol/L Potassium 4.0 (3.5-5.1) mmol/L Chloride 107 (98-107) mmol/L Carbon Dioxide 27 (21-32) mmol/L Anion Gap 6 (3-11) BUN 13 (6-23) mg/dl Creatinine 0.77 (0.6-1.2) mg/dl Est Cr Clr Drug Dosing 82.0 ml/min Est GFR ( Amer) 94.6 ml/min Est GFR (Non-Af Amer) 81.6 ml/min BUN/Creatinine Ratio 16.9 (10-20) Glucose 93 (70-99(Fasting)) mg/dl Estimat Average Glucose 85 mg/dl Hemoglobin A1c 4.6 (4.5-5.6) % Calcium 8.6 (8.5-10.1) mg/dl Magnesium 1.9 (1.7-2.4) mg/dl Troponin I 0.08 H* (0-0.04) ng/ml Triglycerides 91 (0-150) mg/dl Cholesterol 185 (0-200) mg/dl LDL Cholesterol, Calc 114 mg/dl VLDL Cholesterol, Calc 18 (0-30) mg/dl HDL Cholesterol 53 mg/dl Cholesterol/HDL Ratio 3.5 (0-5) PG Care Time/CCT Total # of Minutes Spent Total Time Spent with Patient: Total time spent is greater than 50% in coordination of care (as documented) at patient's floor/unit and/or counseling patient: Coding Level of Care Code 95612 Subseq Hosp Care Lvl 3 Diagnoses Elevated troponin R77.8 Hypertension I10 Hypertension type: unspecified Depression F32.9 Anxiety F41.9 Dysmetabolic syndrome X E88.81 CAD (coronary artery disease) I25.10 (1) Hypertension Hypertension type: unspecified Qualified Code(s): I10 - Essential (primary) h ypertension
[2021-09-12 08:11] LABS: Basophils # (auto) 0.02 K/uL (0-0.2); Basophils % (auto) 0.5 %; Eosinophils # (auto) 0.11 K/uL (0-0.5); Eosinophils % (auto) 2.5 %; Hematocrit (blood only) 43.3 % (37-47); Hemoglobin 15.4 g/dL (12.0-16.0); Lymphocytes # (auto) 1.43 K/uL (1.2-3.4); Lymphocytes % (auto) 32.4 %; Mean Corpuscular Hemoglobin 32.2 pg (25-34); Mean Corpuscular Hgb Conc 35.6 g/dL (32-36); Mean Corpuscular Volume 90.6 fL (80-100); Mean Platelet Volume 9.9 fL (7.4-10.4); Monocytes # (auto) 0.39 K/uL (0.11-0.59); Monocytes % (auto) 8.8 %; Neutrophils # (auto) 2.47 K/uL (1.4-6.5); Neutrophils % (auto) 55.8 %; Platelet Count 144 K/uL (130-400); RDW Coefficient of Variation 13.3 % (11.5-14.5); RDW Standard Deviation 43.7 fL (36.4-46.3); Red Blood Count 4.78 M/uL (4.2-5.4); White Blood Count 4.42 K/uL (4.8-10.8)
[2021-09-12 08:31] LABS: BUN Creatinine Ratio 20.2 (10-20); Calcium 8.7 mg/dl (8.5-10.1); Creatinine Clr Calc Pharmacy 69.9 ml/min; Est GFR (African American) 79.4 ml/min; Est GFR (Non-African American) 68.5 ml/min; Potassium 4.2 mmol/L (3.5-5.1)
[2021-09-12] MEDS: LOSARTAN POTASSIUM 50 MG TAB PO SCH (08:40)
[2021-09-12] MEDS: ASPIRIN 81 MG ECTAB PO SCH (08:40)
[2021-09-12] MEDS: buPROPion XL 300 MG TABCR PO SCH (08:40)
[2021-09-12] MEDS ORDERED: fentaNYL citrate 100 MCG/2 ML VIAL ONE (11:13)
[2021-09-12] MEDS ORDERED: HEPARIN (PORCINE) 1000 UNIT/ML 10 ML (CATH LAB USE ONLY) ONE (11:13)
[2021-09-12] MEDS ORDERED: niCARdipine HCL INJ 2.5 MG/ML 10 ML AMP ONE (11:13)
[2021-09-12] MEDS ORDERED: NITROGLYCERIN/D5W 100MCG/ML 20ML SYR ONE (11:14)
[2021-09-12] MEDS ORDERED: MIDAZOLAM HCL 1 MG/ML 2ML VIAL ONE (11:14)
[2021-09-12] MEDS ORDERED: LIDOCAINE 1% LOCAL 20 ML VIAL ONE ×2 (11:17→15:54)
--- NOTE | 2021-09-12 11:40 | Pre Anesthesia Assessment ---
Date of Service September 12, 2021 Pre Sedation Assessment Vital Signs Temp Pulse Pulse Resp BP BP Pulse Ox 09/12/21 11:12 78 20 135/93 97 09/12/21 08:30 67 146/89 H 09/12/21 07:32 65 135/84 97 09/12/21 07:21 36.5 C 99 H 16 122/80 95 09/12/21 06:15 60 09/12/21 03:30 36.5 C 73 20 123/85 99 09/11/21 22:58 80 09/11/21 22:00 36.7 C 74 20 133/82 97 09/11/21 19:00 37.0 C 74 16 153/88 H 97 09/11/21 15:42 36.8 C 73 16 149/91 H 97 09/11/21 14:22 82 Cardiovascular RRR, no murmur, no edema Respiratory normal respiratory effort, lungs clear to auscultation Pre-Sedation Airway Assessment Smoking Status: Never smoker Hx Sleep Apnea: No Short, Thick Neck: No Thyromental Distance: > or= 3.5 Finger Breadths Oral Cavity: + WNL Mallampati Class: I ASA: ASA3 NPO Status Date of Last Intake of Fluids: 09/11/21 Time of Last Intake of Fluids: 22:00 Date of Last Intake of Solid Food: 09/11/21 Time of Last Intake of Solid Foods: 22:00 Procedure Planning Contraindications for Sedation: none Current Medications Reviewed: Yes Notes The planned sedation has been discussed with the patient. Informed Consent was obtained. I have identified the patient, determined the appropriateness of sedation and have assessed the patient immediately prior to the procedure. All medicine(s) and interventions are by my order.
[2021-09-12] MEDS ORDERED: CLOPIDOGREL BISULFATE 300 MG TAB ONE (12:42)
--- NOTE | 2021-09-12 12:42 | Cardiac Catheterization ---
[facility] Data: Nutrition Associate Cardiac Status Clinical evaluation leading to the procedure CAD Presenation: Unstable angina Anginal Classification: CCS III Heart Failure: No Cardiogenic Shock within 24 Hours: No Cardiac Arrest within 24 Hours: No Imaging Studies Past 6 Months: Yes Stress Studies Past 6 Months: No Coronary Anatomy Dominant: Right Diagnostic Physicians Name: Jose Martin Delcid MD Closure Device Percutaneous Entry Location: Radial Closure Device: Radial Band Recommendations: PCI without planned CABG Cardiac Cath Procedure Full Procedure Date September 12, 2021 Pre-Procedure Diagnosis Pre-Procedure Diagnosis: Angina AUC Score AUC Score: 8 Post-Procedure Diagnosis Post-Procedure Diagnosis: Severe CAD and Normal Intracardiac Pressures Procedure(s) Performed Procedure(s) Performed: Coronary Angiography and Left Heart Cath [employer] Team Lead Jose Martin Delcid MD Chef Passenger Vessel(s) Glenn Díazer Estimated Blood Loss Estimated Blood Loss: < 20 ml Medication(s) Medication(s): Fentanyl, Heparin, Lidocaine 1%, Nicardipine and Versed Summary of Findings Procedures: 1. Coronary angiography 2. Left heart catheterization 3. Moderate sedation Indication: 66-year-old female with a history for hypertension and strong family history of CAD who was admitted on 09/10/2021 with anginal symptoms and minimally elevated troponin. She was referred for cardiac catheterization. Coronary angiography: 1. Left main: No significant CAD. 2. Left anterior descending: LAD extends to the apex. Luminal irregularities within the proximal LAD. Mid LAD 30 to 40%. Distal LAD long segment 70% (smaller caliber vessel distally). MARION-3 flow. Small D1 and D2. D1 proximal 70%. 3. Circumflex: Large caliber vessel. OM1 diffuse proximal and mid 20%. OM 2 proximal 90-95% with MARION-3 flow. 4. Right coronary artery: Dominant vessel. Proximal RCA diffuse moderate CAD. Early mid RCA 100%. PDA and PL fill via left to right collaterals. Left heart catheterization: 1. Left ventriculography was not performed. 2. LVEDP 5 mmHg. 3. No aortic stenosis. Peak to peak gradient across the aortic valve was < 3 mmHg. Moderate sedation: 1. Sedation start time: 11:59 AM 2. Sedation end time: 12:17 PM Impression: 1. Severe CAD involving proximal OM 2, early mid RCA (100%), and distal LAD. 2. Otherwise, nonobstructive CAD. 3. PDA and PL fill via left to right collaterals. 4. Mildly reduced left-sided filling pressure. 5. No aortic stenosis. Plan: 1. Images reviewed with Dr. Chaudhary of interventional cardiology. 2. Planned PCI of OM 2. 3. Otherwise, medical management of occluded RCA that fills via left to right collaterals and distal LAD which is a smaller caliber vessel distally. 4. Risk factor modification. 5. Antiplatelet therapy. Hemodynamics Rest Ao:: 119/66 Final Ao: 130/68 LV: 122/0/5 Recommendations Recommendations: PCI without planned CABG Specimens Specimens: None Radiation Exposure (mGy) 706 mGy. Fluoro time 1.7 min. Contrast (mls) 30 ml Procedural Complication(s) None Disposition remains in lab for PCI I attest to the content of the Intraoperative Record and any orders documented therein. Any exceptions are noted below. [facility] Card Cath Procedure Codes Cardiac Catheterization Procedure 1: Cardiovascular Cath Procedures: 22031 Coronaries and LHC (+/-LV) Moderate Sedation Procedure 1: Sedation/Anesthesia: 72015 Mod Sedation by the same physician;Init15 Min Child Age 5 & Up Procedure 2: Sedation/Anesthesia: 77265 Mod Sedation by the same physician; Ea [id number] Minutes PG Care Time/CCT Total # of Minutes Spent Total Time Spent with Patient: Total time spent is greater than 50% in coordination of care (as documented) at patient's floor/unit and/or counseling patient:
--- NOTE | 2021-09-12 12:52 | Cardiology Progress Note ---
Date of Service September 12, 2021 Assessment & Plan (1) CAD (coronary artery disease): (2) S/P coronary artery stent placement: (3) Hypertension: (4) Dyslipidemia: (5) Exertional angina: Plan: ASSESSMENT/PLAN: 1. CAD s/p OM2 PCI: Had presented with exertional angina. Found to have multivessel CAD including occluded RCA that fills via left to right collaterals. Culprit vessel likely OM 2 which underwent PCI. Recommend aspirin 81 mg daily indefinitely. Plavix 75 mg daily for 1 year. For medical management of residual CAD, recommend beta-theresa. Start high intensity statin therapy. On discharge, recommend sublingual nitroglycerin on an as-needed basis. 2. Angina: No angina while hospitalized at rest. Found to have CAD as noted above. Underwent PCI and initiate medical therapy for remaining CAD. 3. Dyslipidemia: LDL not at goal in the setting of CAD. Initiate high intensity statin therapy. 4. Hypertension: Blood pressure improved and mostly now normotensive or mildly hypertensive. Initiating beta-theresa as above which should also improve blood pressure management. Continue ARB. 5. Disposition: If no complications and otherwise doing well, can be discharged this evening if no stasis achieved and no angina with ambulation in the hallway. If any concern, can be discharged tomorrow. Follow-up in the cardiology office next week. Plan of care discussed with Dr. Florian and communicated with Kim Peace of the primary hospitalist service. Patient sister will be called via telephone to update as per patient request. Admission and Anticipated Discharge Date Admission Date: September 10, 2021 Subjective Patient denies chest pain, shortness of breath, syncope, near syncope, melena, hematochezia, or hematuria. Has had exertional chest discomfort with associated dyspnea for the past several months. Review of systems: As above. Physical Exam Physical Exam: Gen.: No acute distress. Alert and oriented. HEENT: Anicteric sclera. Neck: No JVD. Cardiac: No ventricular heave. Regular. Normal S1-S2. No murmurs, rubs, or gallops. Pulmonary: Clear to auscultation bilaterally without wheezes, rales, or rhonchi. Abdomen: Soft, nontender, nondistended, with normoactive bowel sounds. No bruits noted. Extremities: 2+ radial pulses bilaterally. 2+ posterior tibialis pulses bilaterally. No significant pitting edema. No cyanosis. Psychiatric: Affect appears appropriate. Chest: Nontender to palpation. Results & Data ([facility]) Vital Signs (Past 12 Hours) Vital Signs Temp Pulse Pulse Resp BP Pulse Ox 09/12/21 11:12 78 20 135/93 97 09/12/21 08:30 67 146/89 H 09/12/21 07:32 65 135/84 97 09/12/21 07:21 36.5 C 99 H 16 122/80 95 09/12/21 06:15 60 09/12/21 03:30 36.5 C 73 20 123/85 99 Laboratory Results Laboratory Results - last 24 hr 09/12/21 09/12/21 07:47 07:47 WBC 4.42 L RBC 4.78 Hgb 15.4 Hct 43.3 MCV 90.6 MCH 32.2 MCHC 35.6 RDW Std Deviation 43.7 RDW Coeff of Calli 13.3 Plt Count 144 MPV 9.9 Immature Gran % (Auto) 0.0 Neut % (Auto) 55.8 Lymph % (Auto) 32.4 [place] % (Auto) 8.8 Eos % (Auto) 2.5 Baso % (Auto) 0.5 Neut # (Auto) 2.47 Lymph # (Auto) 1.43 [place] # (Auto) 0.39 Eos # (Auto) 0.11 Baso # (Auto) 0.02 Immature Gran # (Auto) 0.00 Sodium 138 Potassium 4.2 Chloride 107 Carbon Dioxide 25 Anion Gap 6 BUN 18 Creatinine 0.89 Est Cr Clr Drug Dosing 69.9 Est GFR ( Amer) 79.4 Est GFR (Non-Af Amer) 68.5 BUN/Creatinine Ratio 20.2 H Glucose 99 Calcium 8.7 Magnesium 2.0 Diagnostic Findings Coronary angiography: 1. Left main: No significant CAD. 2. Left anterior descending: LAD extends to the apex. Luminal irregularities within the proximal LAD. Mid LAD 30 to 40%. Distal LAD long segment 70% (smaller caliber vessel distally). MARION-3 flow. Small D1 and D2. D1 proximal 70%. 3. Circumflex: Large caliber vessel. OM1 diffuse proximal and mid 20%. OM 2 proximal 90-95% with MARION-3 flow. 4. Right coronary artery: Dominant vessel. Proximal RCA diffuse moderate CAD. Early mid RCA 100%. PDA and PL fill via left to right collaterals. Left heart catheterization: 1. Left ventriculography was not performed. 2. LVEDP 5 mmHg. 3. No aortic stenosis. Peak to peak gradient across the aortic valve was < 3 mmHg. PCI of OM2 with 2.25 x 18 mm Roni SHONDA. Medications Administered Current Inpatient Medications Acetaminophen (Acetaminophen 325 Mg Tab) 650 mg PO Q4H PRN PRN Reason: Pain or Fever Stop: 10/10/21 22:50 Last Admin: 09/10/21 23:30 Dose: 650 mg Documented by: Aspirin (Aspirin 81 Mg Ectab) 81 mg PO [facility] Stop: 10/11/21 08:59 Last Admin: 09/12/21 08:40 Dose: 81 mg Documented by: Bupropion HCl (Bupropion Xl 300 Mg Tabcr) 300 mg PO [facility] Stop: 10/11/21 08:59 Last Admin: 09/12/21 08:40 Dose: 300 mg Documented by: Enoxaparin Sodium (Enoxaparin Inj 40 Mg/0.4 Ml Syr) 40 mg SQ [facility] Stop: 10/10/21 23:14 Last Admin: 09/11/21 20:47 Dose: 40 mg Documented by: Hydroxyzine HCl (Hydroxyzine Hcl 25 Mg Tab) 25 mg PO Q8H PRN PRN Reason: anxiety Stop: 10/10/21 22:50 Labetalol HCl (Labetalol Hcl Iv 5 Mg/Ml 20ml) 10 mg IV Q2H PRN PRN Reason: SBP >180 and/OR DBP >90 Stop: 10/10/21 22:50 Losartan Potassium (Losartan Potassium 50 Mg Tab) 100 mg PO [facility] Stop: 10/11/21 08:59 Last Admin: 09/12/21 08:40 Dose: 100 mg Documented by: Nitroglycerin (Nitroglycerin Sl 0.4 Mg/Tab Tab) 0.4 mg SL UD PRN PRN Reason: Chest Pain Stop: 10/10/21 22:50 PG Care Time/CCT Total # of Minutes Spent Total Time Spent with Patient: Total time spent is greater than 50% in coordination of care (as documented) at patient's floor/unit and/or counseling patient: Coding Level of Care Code 78829 Office/Outpt Visit, Est Diagnoses CAD (coronary artery disease) I25.10 S/P coronary artery stent placement Z95.5 Hypertension I10 Hypertension type: unspecified Dyslipidemia E78.5 Exertional angina I20.8 (1) Hypertension Hypertension type: unspecified Qualified Code(s): I10 - Essential (primary) hypertension
--- NOTE | 2021-09-12 15:20 | Discharge Summary ---
Date of Service September 12, 2021 Admission HPI Per Admitting Provider 66 YOF with past medical history of: HTN, atrophic vaginitis, obesity. Patient comes to the ER today for complaints of right sided chest pain while at work. 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 She did not stop working at that time. She did note that this was associated with right arm pain that went down to her elbow, and was also associated with nausea without vomiting. The pain was described as a pressure that just "hurt". She did leave work and went to her mother's house because she had a BP cuff and took her blood pressure noting that it was 160/100s. She called her PCP who discussed the case with her cardiology office and recommended patient come in for risk stratification. Patient denies this occurring previously, however does endorse noticing to be more short of breath with walking or going up and down her steps. She attributed this to increase in weight over the past couple months. Her dyspnea going up ~ 16 steps is associated with some pain in her upper left sternum and is relieved with rest. In the EMD the patient was given an asa and had topical nitro paste placed. She had an ECG performed which was without dynamic ST changes. She had routine labs drawn to include Troponin I and CXR. CXR was negative for acute cardio/pulmonary process, her Troponin I was elevated to 0.08. Upon evaluation the patient's BP was back to her baseline of 140/90. The patient has risk factors of family history of mother, dad, and sister with coronary stents or coronary interventions. Patient had a holter monitor from 2019 for palpitations hich was negative for arrythmia other than PAC and PVCs - she had a excercise stress test in 2019 that was negative for ischemia at 87% MPHR- and normal LVEF. She has uncontrolled HTN, does not smoke and social drinker. She is not on a daily asa or statin. Patient will be observed overnight, trend her Troponin I and ECG. Will remove her NTP to know if she is having symptoms or not. Will increase her Losartan to 100mg and add Labetalol IV PRN for SBP >180 and/OR DBP> 90. Discharge Data Allergies Allergy/AdvReac Type Severity Reaction Status Date / Time No Known Drug Allergies Allergy Unknown Verified 09/10/21 20:52 Consultations 09/10/21 19:51 ED Decision to Admit Stat 09/11/21 10:35 Consult Cardiology Routine Procedures Performed Operation Date: 09/12/21 11:00 Actual Procedures p Cath, Left with Cors and Vent - Jose Martin Delcid MD s Cineradiography w/Routine Exam - Jose Martin Delcid MD p Drug Eluting Stent SGl Vessel - Sridhar Chaudhary MD Ordered Studies 09/12/21 06:41 CL Cath Imgs for PACS use only Routine Hospital Course (1) Chest pain: Chest pain with activity presenting as cardiac in nature at rest/activity and not relieved with rest when she went to her mother's house to check her BP last evening, which was significantly elevated EKG without ischemic changes currently and remains chest pain free with improvement in her blood pressure with increase in losartan to 100mg daily. Labetalol also available prn HTN (avoiding BB given HR 50-60s) Top 0.08--> 0.09 --> 0.08 but did have prodrome of CP/radiation to arm, and given strong family history, personal hx DM, cardiology consulted for eval for cardiac cath ECHO benign, however felt needs cath. No need for heparin per Cards --> Had already eaten breakfast AM 4/5 and cath moved to today Currently NPO ASA 81mg daily ordered in meantime A1c wnl Lipid panel with improvement from prior but suspect still needs -- statin intensity pending cath report s/p cardiac cath Om2 got 1 stent. Rca occluded with collaterals. Med management for lad cad. Well start metop and crestor. Well need ntg on dc. Can go home around 530 or 6 if no issues and able to ambulate in hallway. My office arranging fu next week. --> Sent with Rx metoprolol 25mg BID, crestor as well as plavix in addition to increased losartan. F/u Cards next week NTG rx also sent (2) Elevated troponin: As above follow may be associated with elevated BP or associated with CAD Cards on consult Planning for cardiac catheterization given risk (3) Hypertension: Uncontrolled with SBP baseline > 140 and DBP >90 Increased losartan to 100mg daily, Cr wnl Given dose 2.5 amlodipine last evening as well Bp currently 135/84 Consideration for additional of HCTZ to losartan but would wait and do as outpatient Labetalol available prn and continuing monitoring on telemetry (4) Depression: Continue Bupropion (5) Anxiety: Continue Bupropion, hydroxyzine (6) Dysmetabolic syndrome X: A1c 4.6 Lipid panel with improvement compared to prior values -- likely initiation of statin but will await cath and if evidence for CAD would start high intensity statin weight loss recommended -- she states this current episode scared her and she is ready to start taking better care of herself NPO for cath Discharge Plan Discharge Items Patient Disposition: Home - Self-Care Reason For Visit: CHEST PAIN, HTN Discharge Diagnosis: Chest Pain, Coronary Artery Disease Condition on Discharge: Fair Goals: You have been hospitalized for an urgent problem which required surgery. During your stay at [facility], we have made an effort to correct the problem that brought you to the hospital while keeping you as comfortable as possible. Surgery and medications were used to bring your condition under control and your discharge instructions will include directions for any medications you should take after leaving the hospital. Please make sure to follow the advice of your surgeon regarding follow up with the surgeon and with your primary care provider. Activity: As commented below Activity Comment: no heavy lifting/exercise 2 weeks Non-emergency contact: Primary Care Provider and Health Services Administrator Call non-emergency contact if: you have any medication questions, your symptoms worsen and your pain is not controlled Follow-up/Referrals: Jose Martin Delcid MD [Physician] - 09/19/21 2:00 pm Mary Castaneda DO [Primary Care Provider] - Diet: Heart Healthy Addtl Attending Provider Instructions: You have been hospitalized for chest pain. Given family history and symptoms description, I consulted with cardiology and they felt we should proceed with a cardiac catheterization. You underwent cath and got a stent to your OM2 and had some blockage to your RCA with collateral blood flow. Your losartan was already increased to 100mg daily to help with blood pressure control. Per Dr Delcid, we are sending you with new prescriptions for the following: * PLAVIX 75mg DAILY -- DO NOT MISS A DOSE! * Metoprolol tartare 25mg by mouth TWICE daily * Crestor 40mg by mouth at night You should have follow up with cardiology and your PCP in the next week to monitor your progress. You have also been sent a prescription for nitroglycerin to take as needed if you develop chest pain. If after 3 doses still present/worsening please proceed to closest ER/call 911. Please return to ER for any symptoms concerning for you, worsening chest pian, shortness of breath or any other symptoms of concern. It has been a pleasure being a part of the medical team providing for you while you have been in the hospital. Take care! Addtl Pricer Provider Instructions: ACTIVITY RECOMMENDATIONS: Excess manipulation of the wrist should be avoided for the next 24-48 hours. * No lifting over 2 pounds (approximately a 1/2 gallon of milk) with the utilized arm for 24 hours. * No strenuous activity such as bowling or tennis for 3 days. * Keep the site of the procedure covered with a bandage for 24 hours. *You may shower the day after the procedure. Do not take a tub bath or submerge the puncture site in water for the next 3 days. *Do not operate any motorized equipment for 3 days. SPECIAL CARE INSTRUCTIONS: The site may be slightly bruised and sore following your procedure. Should any of the following occur, contact the Dr. who performed your procedure. 1. Redness/inflammation, swelling, chills, or fever, or colored drainage at procedure site within 3-7 days after your procedure. 2. Coldness, discoloration, ongoing numbness, severe pain, or swelling. Expect mild tingling of hand and tenderness at the puncture site for up to three days. If this persists beyond three days, or other symptoms develop, notify the Dr. who performed your procedure. BLEEDING: If the procedure site on your wrist begins to bleed, do not panic 1. Place 1 or 2 fingers firmly just slightly above the insertion site to stop the bleeding. You may be able to feel your pulse as you hold pressure. 2. Lift your finger after 5 minutes to see if the bleeding has stopped. 3. Once the bleeding has stopped, gently wipe the wrist area clean with a bandage. * If the bleeding from your wrist does not stop after 10 minutes, or if there is a large amount of bleeding or spurting, call 911 (do not drive yourself to the hospital). SKIN IRRITATION: * You may experience some redness and/or swelling in the area where radiation was administered. If any skin irritation occurs, please contact your family physician. FOLLOW UP VISIT: 1. Follow up in cardiology office in 1 week. Call [phone] for questions/concerns. 2. Keep any scheduled doctor appointments. Pending Studies at Discharge: No Stand-Alone Forms: [facility] Medications and DC Order Prescriptions: New losartan 50 mg Tablet 100 mg PO QAM 30 Days Qty: 60 RF: 0 nitroglycerin [Nitrostat] 0.4 mg Tablet, Sublingual 0.4 mg sublingual Q5M PRN (Reason: chest pain) Qty: 14 RF: 0 metoprolol tartrate 25 mg Tablet 25 mg PO BID 30 Days Qty: 60 RF: 1 rosuvastatin [Crestor] 20 mg Tablet 40 mg PO HS Qty: 30 RF: 0 clopidogrel [Plavix] 75 mg tablet 75 mg PO DAILY Qty: 30 RF: 3 Continued bupropion HCl 300 mg tablet extended release 24 hr 300 mg PO QAM Qty: 90 RF: 1 hydroxyzine HCl 25 mg tablet 25 mg PO Q8H PRN (Reason: anxiety) Qty: 30 RF: 1 estradiol 10 mcg tablet 10 mcg PV 2XWK RF: 0 naproxen 500 mg tablet 500 mg PO BID PRN (Reason: Pain) RF: 0 Discontinued losartan 50 mg tablet 50 mg PO QAM Qty: 90 RF: 1 Admission Data Admit Date/Time: 09/10/21 20:26 Attending Provider: Samantha Florian Admit Provider: Geraldine Gilbert Primary Care Provider: Mary Castaneda Other Providers: Geraldine Gilbert ; Hector Magaña Coding Diagnoses Chest pain R07.9 Elevated troponin R77.8 Hypertension I10 Hypertension type: unspecified Depression F32.9 Anxiety F41.9 Dysmetabolic syndrome X E88.81
--- NOTE | 2021-09-12 17:51 | Post Anesthesia Assessment ---
Date of Service September 12, 2021 Post Sedation Assessment Vital Signs Temp Pulse Pulse Resp BP Pulse Ox 09/12/21 15:24 98.6 F 88 18 135/78 98 09/12/21 14:02 98.1 F 80 16 140/64 98 09/12/21 13:45 97.9 F 75 16 132/62 97 09/12/21 13:30 70 09/12/21 13:10 75 20 91/22 L 96 09/12/21 12:55 72 20 131/81 97 09/12/21 11:12 78 20 135/93 97 09/12/21 08:30 67 146/89 H 09/12/21 07:32 65 135/84 97 09/12/21 07:21 97.7 F 99 H 16 122/80 95 09/12/21 06:15 60 09/12/21 03:30 97.7 F 73 20 123/85 99 09/11/21 22:58 80 09/11/21 22:00 98.1 F 74 20 133/82 97 09/11/21 19:00 98.6 F 74 16 153/88 H 97 Recovery Score Activity: Moves 4 extremities Respiration: Deep Breath/Cough Circulation: +/-20% PreAnes Value Consciousness: Fully Awake Oxygen Saturation: > 92% On Room Air Post Anesthesia Score: 10 Discharge Sedation Level of Care: Fast Track Phase II Post Sedation Plan On clinical assessment, the patient appears to have tolerated the sedation without complications. Patient is recovering as anticipated. Patient will continue to be monitored by nursing and may be discharged when sed ation discharge criteria are met per below protocol. Upon Completions of procedure up to 15 minutes continue every 5 minute vital signs and the P.A.R. score; then discharge to a Phase I or Fast Track to Phase II per the following guidelines: * Discharge Patient to appropriate Phase II area if PAR is 8 or greater or return to pre- procedure baseline. The post - procedure orders will be as directed. * If PAR score is less than 8 or not return to pre-procedure baseline then patient will follow Phase I monitoring till PAR is reached for Phase II. The Phase I may be done in procedure room or may call to secure a Phase I area. * If naloxone or flumazenil are used for reversal, hold in Phase I for continued monitoring from when last reversal dose was given for a minimum of 60 minutes or longer pending the nurse and/or physician discretion of patient condition before discharge to Phase II. Please call the Sedation Physician to re-evaluate and complete post-note for discharge to Phase II area. Do NOT discharge from procedure sedation or Phase 1 until post- sedation evaluation note is complete by procedure /sedation MD Sedation Discharge Instructions to be given to the patient at discharge to home.
--- NOTE | 2021-09-12 17:56 | Cardiac Catheterization ---
[facility] Data: Protection Consultant Cardiac Status Clinical evaluation leading to the procedure CAD Presenation: Non STEMI Diagnostic Physicians Name: Binh Chaudhary MD Closure Device Recommendations: PCI without planned CABG Cardiac Cath Procedure Full Procedure Date September 12, 2021 Pre-Procedure Diagnosis Pre-Procedure Diagnosis: Angina AUC Score AUC Score: 8 Post-Procedure Diagnosis Post-Procedure Diagnosis: Severe CAD and Successful PCI Procedure(s) Performed Procedure(s) Performed: Coronary Angiography and Drug Eluting Stent Country Printer Apprentice Binh Chaudhary MD Inspector Technician(s) Glenn Conner Estimated Blood Loss Estimated Blood Loss: < 20 ml Medication(s) Medication(s): Clopidogrel, Fentanyl, Heparin, Lidocaine 1%, Nicardipine and Versed Summary of Findings Indication: ACS Access: 6 Fr right radial artery Catheters: EBU 3.5 guide Findings: For full details of patient's coronary angiography please see cath report dictated by Dr. Delcid. Briefly, patient found to have a 90 to 95% proximal OM 2 stenosis. Decision to proceed with PCI. -- PCI -- Antithrombotic therapy: Heparin, clopidogrel Procedure: Left main cannulated with EBU 3.5 guide Pre-procedure flow MARION 3 Tie Layer 50 wire passed across lesion into distal vessel OM 2 lesion predilated with 2.0 compliant balloon Dilated lesion stented with 2.25 x 18 mm Roni drug-eluting stent Stent post-dilated with 2.5 noncompliant balloon IC vasodilators administered for spasm Post procedure MARION 3 flow, stent well expanded with minimal residual stenosis and no apparent cardiac complications. Arterial Closure: TR band Summary: 1. Successful PCI of proximal to mid OM2 with single drug-eluting stent (2.25 x 18 mm Roni; postdilated with 2.5 NC). Recommendations: To PCU for continued monitoring Loaded with clopidogrel 600 mg in Protection Consultant Continue dual-antiplatelet therapy for at least 1 year Continue statin, and ASCVD risk factor modification Consult cardiac Rehab Hemodynamics Rest Ao:: 130/64/91 Final Ao: 99/54/76 LV: 122/4 Recommendations Recommendations: PCI without planned CABG Specimens Specimens: None Radiation Exposure (mGy) 1858 Contrast (mls) 45 Anesthesia Moderate 0040-0080 Procedural Complication(s) None Disposition PCU I attest to the content of the Intraoperative Record and any orders documented therein. Any exceptions are noted below. [facility] Card Cath Procedure Codes Moderate Sedation Procedure 2: Sedation/Anesthesia: 53608 Mod Sedation by the same physician; Ea [id number] Minutes Stenting Procedure 1: Cardiovascular Stent Procedures: 01623 Perc transcatheter placement of intracoronary stent(s), with ang PG Care Time/CCT Total # of Minutes Spent Total Time Spent with Patient: Total time spent is greater than 50% in coordination of care (as documented) at patient's floor/unit and/or counseling patient:
[2021-09-12] MEDS: ENOXAPARIN INJ 40 MG/0.4 ML SYR SQ SCH (19:35)
[2021-09-12] MEDS: METOPROLOL TARTRATE 25 MG TAB PO SCH (19:36)
[2021-09-12] MEDS ORDERED: ROSUVASTATIN CALCIUM 20 MG TAB PO SCH ×2 (21:00)
--- NOTE | 2021-09-13 06:56 | Electrocardiogram Report ---
Test Reason : Blood Pressure : / mmHG Vent. Rate : 065 BPM Atrial Rate : 065 BPM P-R Int : 152 ms QRS Dur : 090 ms QT Int : 438 ms P-R-T Axes : 048 009 009 degrees QTc Int : 455 ms Normal sinus rhythm Normal ECG When compared with ECG of 11-SEP-2021 06:23, No significant change was found Confirmed by Demario Weaver ([id number]) on 09/13/2021 6:56:33 AM Referred By: REFERRED SELF Confirmed By:Demario Weaver
[2021-09-13 07:05] LABS: Basophils # (auto) 0.02 K/uL (0-0.2); Basophils % (auto) 0.3 %; Eosinophils # (auto) 0.12 K/uL (0-0.5); Hemoglobin 15.1 g/dL (12.0-16.0); Immature Granulocytes # (auto) 0.01 K/uL (0.00-0.02); Immature Granulocytes % (auto) 0.2 %; Lymphocytes # (auto) 1.68 K/uL (1.2-3.4); Lymphocytes % (auto) 28.3 %; Mean Corpuscular Hemoglobin 32.2 pg (25-34); Mean Corpuscular Volume 89.6 fL (80-100); Mean Platelet Volume 9.1 fL (7.4-10.4); Monocytes # (auto) 0.58 K/uL (0.11-0.59); Monocytes % (auto) 9.8 %; Neutrophils # (auto) 3.52 K/uL (1.4-6.5); Neutrophils % (auto) 59.4 %; Platelet Count 148 K/uL (130-400); RDW Coefficient of Variation 13.4 % (11.5-14.5); RDW Standard Deviation 43.7 fL (36.4-46.3); Red Blood Count 4.69 M/uL (4.2-5.4); White Blood Count 5.93 K/uL (4.8-10.8)
--- NOTE | 2021-09-13 07:12 | Electrocardiogram Report ---
Test Reason : Blood Pressure : / mmHG Vent. Rate : 068 BPM Atrial Rate : 068 BPM P-R Int : 144 ms QRS Dur : 082 ms QT Int : 422 ms P-R-T Axes : 033 -06 027 degrees QTc Int : 448 ms Normal sinus rhythm Normal ECG When compared with ECG of 12-SEP-2021 05:07, (unconfirmed) No significant change was found Confirmed by Demario Weaver ([id number]) on 09/13/2021 7:12:11 AM Referred By: REFERRED SELF Confirmed By:Demario Weaver
--- NOTE | 2021-09-13 07:19 | Electrocardiogram Report ---
Test Reason : Blood Pressure : / mmHG Vent. Rate : 078 BPM Atrial Rate : 078 BPM P-R Int : 132 ms QRS Dur : 088 ms QT Int : 384 ms P-R-T Axes : 038 -02 035 degrees QTc Int : 437 ms Normal sinus rhythm Possible Left atrial enlargement Borderline ECG When compared with ECG of 12-SEP-2021 12:50, (unconfirmed) No significant change was found Confirmed by Demario Weaver ([id number]) on 09/13/2021 7:18:47 AM Referred By: REFERRED SELF Confirmed By:Demario Weaver
[2021-09-13 07:37] LABS: BUN Creatinine Ratio 21.1 (10-20); Calcium 8.6 mg/dl (8.5-10.1); Creatinine Clr Calc Pharmacy 65.3 ml/min; Est GFR (African American) 73.4 ml/min; Est GFR (Non-African American) 63.3 ml/min; Magnesium 2.1 mg/dl (1.7-2.4); Potassium 4.3 mmol/L (3.5-5.1)
[2021-09-13] MEDS: METOPROLOL TARTRATE 25 MG TAB PO SCH (07:49)
[2021-09-13] MEDS: buPROPion XL 300 MG TABCR PO SCH (07:51)
[2021-09-13] MEDS: ASPIRIN 81 MG ECTAB PO SCH (07:52)
--- NOTE | 2021-09-13 08:46 | Cardiology Progress Note ---
Date of Service September 13, 2021 Assessment & Plan (1) CAD (coronary artery disease): (2) S/P coronary artery stent placement: (3) Hypertension: (4) Dyslipidemia: (5) Exertional angina: Plan: ASSESSMENT/PLAN: 1. CAD s/p OM2 PCI: Had presented with exertional angina. Found to have multivessel CAD including occluded RCA that fills via left to right collaterals. Culprit vessel likely OM 2 which underwent PCI. Recommend aspirin 81 mg daily indefinitely. Plavix 75 mg daily for 1 year. For medical management of residual CAD, recommend beta-theresa. Started high intensity statin therapy. 2. Angina: Has had 2 different types of chest discomfort. Pre-hospital, she has been experiencing exertional substernal chest discomfort described as a hollowness. She also has had right-sided chest pain that radiates to the right arm. This occurred post PCI. This discomfort is less likely cardiac in nature. The exertional chest discomfort more consistent with ischemic heart disease as etiology. Underwent PCI and initiate medical therapy for remaining CAD. 3. Dyslipidemia: LDL not at goal in the setting of CAD. Statin therapy initiated during this hospital stay. Continue high-intensity statin therapy. 4. Hypertension: Blood pressure normotensive today. Continue ARB and beta- theresa. 5. Disposition: Can be discharged home today from a cardiac perspective if no further issues and can ambulate in the hallway without angina. Patient care c ommunicated with Kim Peace of the primary hospitalist service. Follow-up in the cardiology office next week. Admission and Anticipated Discharge Date Admission Date: September 12, 2021 Subjective Yesterday afternoon, patient experienced right-sided chest discomfort that radia genia down her right arm. She states that the pressure was there for quite some time before it intensified to the point where she notified someone. ECG was unremarkable. She was given nitroglycerin by the primary service. She then became hypotensive with systolic blood pressure in the 70s. She became diaphoretic. She was seen by Dr. Chaudhary. Symptoms then resolved and blood pressure normalized. She has not had any further recurrence of chest discomfort. She has not yet ambulated in the hallway. She denies shortness of breath, syncope, palpitations, edema, or bleeding. She was unaccompanied in her hospital room. Review of systems: As above. Physical Exam Physical Exam: Gen.: No acute distress. Alert and oriented. HEENT: Anicteric sclera. Neck: No JVD. Cardiac: No ventricular heave. Regular. Normal S1-S2. No murmurs, rubs, or gallops. Pulmonary: Clear to auscultation bilaterally without wheezes, rales, or rhonchi. Abdomen: Soft, nontender, nondistended, with normoactive bowel sounds. No bruits noted. Extremities: 2+ radial pulses bilaterally. No hematoma of the right radial cath site. 2+ posterior tibialis pulses bilaterally. No significant pitting edema. No cyanosis. Psychiatric: Affect appears appropriate. Chest: Nontender to palpation. Results & Data ([facility]) Vital Signs (Past 12 Hours) Vital Signs Temp Pulse Pulse Resp BP Pulse Ox 09/13/21 07:13 36.7 C 72 18 139/79 97 09/13/21 03:34 37.1 C 67 18 152/83 H 95 09/13/21 00:00 71 09/12/21 23:09 36.7 C 67 20 127/75 96 Laboratory Results Laboratory Results - last 24 hr 09/12/21 09/13/21 09/13/21 12:37 06:47 06:47 WBC 5.93 RBC 4.69 Hgb 15.1 Hct 42.0 MCV 89.6 MCH 32.2 MCHC 36.0 RDW Std Deviation 43.7 RDW Coeff of Calli 13.4 Plt Count 148 MPV 9.1 Immature Gran % (Auto) 0.2 Neut % (Auto) 59.4 Lymph % (Auto) 28.3 [place] % (Auto) 9.8 Eos % (Auto) 2.0 Baso % (Auto) 0.3 Neut # (Auto) 3.52 Lymph # (Auto) 1.68 [place] # (Auto) 0.58 Eos # (Auto) 0.12 Baso # (Auto) 0.02 Immature Gran # (Auto) 0.01 Activ Coag Time Kaolin 297 H Sodium 139 Potassium 4.3 Chloride 109 H Carbon Dioxide 24 Anion Gap 6 BUN 20 Creatinine 0.95 Est Cr Clr Drug Dosing 65.3 Est GFR ( Amer) 73.4 Est GFR (Non-Af Amer) 63.3 BUN/Creatinine Ratio 21.1 H Glucose 92 Calcium 8.6 Magnesium 2.1 Diagnostic Findings Telemetry personally reviewed: No arrhythmia. Sinus rhythm. Medications Administered Current Inpatient Medications Acetaminophen (Acetaminophen 325 Mg Tab) 650 mg PO Q4H PRN PRN Reason: Pain or Fever Stop: 10/10/21 22:50 Last Admin: 09/10/21 23:30 Dose: 650 mg Documented by: Aspirin (Aspirin 81 Mg Ectab) 81 mg PO [facility] Stop: 10/11/21 08:59 Last Admin: 09/13/21 07:52 Dose: 81 mg Documented by: Bupropion HCl (Bupropion Xl 300 Mg Tabcr) 300 mg PO [facility] Stop: 10/11/21 08:59 Last Admin: 09/13/21 07:51 Dose: 300 mg Documented by: Clopidogrel Bisulfate (Clopidogrel Bisulfate 75 Mg Tab) 75 mg PO [facility] Stop: 10/13/21 08:59 Last Admin: 09/13/21 07:50 Dose: 75 mg Documented by: Hydroxyzine HCl (Hydroxyzine Hcl 25 Mg Tab) 25 mg PO Q8H PRN PRN Reason: anxiety Stop: 10/10/21 22:50 Labetalol HCl (Labetalol Hcl Iv 5 Mg/Ml 20ml) 10 mg IV Q2H PRN PRN Reason: SBP >180 and/OR DBP >90 Stop: 10/10/21 22:50 Losartan Potassium (Losartan Potassium 50 Mg Tab) 100 mg PO [facility] Stop: 10/11/21 08:59 Last Admin: 09/12/21 08:40 Dose: 100 mg Documented by: Metoprolol Tartrate (Metoprolol Tartrate 25 Mg Tab) 25 mg PO [facility]ID [facility] Stop: 10/12/21 20:59 Last Admin: 09/13/21 07:49 Dose: 25 mg Documented by: Nitroglycerin (Nitroglycerin Sl 0.4 Mg/Tab Tab) 0.4 mg SL UD PRN PRN Reason: Chest Pain Stop: 10/10/21 22:50 Last Admin: 09/12/21 16:17 Dose: 0.4 mg Documented by: Rosuvastatin Calcium (Rosuvastatin Calcium 20 Mg Tab) 40 mg PO [facility] Stop: 10/12/21 20:59 Last Admin: 09/12/21 19:37 Dose: 40 mg Documented by: PG Care Time/CCT Total # of Minutes Spent Total Time Spent with Patient: Total time spent is greater than 50% in coordination of care (as documented) at patient's floor/unit and/or counseling patient: Coding Level of Care Code 36796 Subseq Hosp Care Lvl 3 Diagnoses CAD (coronary artery disease) I25.10 S/P coronary artery stent placement Z95.5 Hypertension I10 Hypertension type: unspecified Dyslipidemia E78.5 Exertional angina I20.8 (1) Hypertension Hypertension type: unspecified Qualified Code(s): I10 - Essential (primary) hypertension
[2021-09-13] MEDS ORDERED: CLOPIDOGREL BISULFATE 75 MG TAB PO SCH (09:00)
--- NOTE | 2021-09-13 10:58 | Discharge Summary ---
Date of Service September 13, 2021 Admission HPI Per Admitting Provider Primary Care Provider: Mary Castaneda, DO 66 YOF with past medical history of: HTN, atrophic vaginitis, obesity. Patient comes to the ER today for complaints of right sided chest pain while at work. 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 She did not stop working at that time. She did note that this was associated with right arm pain that went down to her elbow, and was also associated with nausea without vomiting. The pain was described as a pressure that just "hurt". She did leave work and went to her mother's house because she had a BP cuff and took her blood pressure noting that it was 160/100s. She called her PCP who discussed the case with her cardiology office and recommended patient come in for risk stratification. Patient denies this occurring previously, however does endorse noticing to be more short of breath with walking or going up and down her steps. She attributed this to increase in weight over the past couple months. Her dyspnea going up ~ 16 steps is associated with some pain in her upper left sternum and is relieved with rest. In the EMD the patient was given an asa and had topical nitro paste placed. She had an ECG performed which was without dynamic ST changes. She had routine labs drawn to include Troponin I and CXR. CXR was negative for acute cardio/pulmonary process, her Troponin I was elevated to 0.08. Upon evaluation the patient's BP was back to her baseline of 140/90. The patient has risk factors of family history of mother, dad, and sister with coronary stents or coronary interventions. Patient had a holter monitor from 2019 for palpitations hich was negative for arrythmia other than PAC and PVCs - she had a excercise stress test in 2019 that was negative for ischemia at 87% MPHR- and normal LVEF. She has uncontrolled HTN, does not smoke and social drinker. She is not on a daily asa or statin. Patient will be observed overnight, trend her Troponin I and ECG. Will remove her NTP to know if she is having symptoms or not. Will increase her Losartan to 100mg and add Labetalol IV PRN for SBP >180 and/OR DBP> 90. Admission Exam Per Admitting Provider PHYSICAL EXAM: General: awake, alert, no apparent distress Head: Normocephalic, atraumatic ENT: PERRL, EOMI, no pharyngeal exudate, mucous membranes moist Neuro: AAO x 3, speech clear and appropriate, strength intact bilaterally 5/5, sensation intact and equal all extremities and dermatomes, no pronator drift Chest: equal rise and fall of the chest, no accessory muscle use, no heaves or thrills, Clear to auscultation, on room air, Cardiac: Regular rate and rhythm, telemetry reviewed, skin warm dry, cap refill <3 seconds, peripheral pulses +2 no JVD, no murmur, no edema- noted HTN GI: NABS x 4 quadrants, soft, nontender to palpation, no rebound, guarding or tenderness : Spontaneously voiding, no pain, no CVA tenderness, Extremities: Normal inspection, no peripheral edema or erythema, calfs nontender to palpation Psych: Normal mood and affect Skin: no rash or erythema Principal Diagnosis CAD Discharge Exam Constitutional General: awake, alert, no apparent distress, sitting up in bed looking at phone, no acute distress. reported walking halls without any recurrance of symptoms Head: Normocephalic, atraumatic ENT: PERRL, EOMI, no pharyngeal exudate, mucous membranes moist Chest: b/l breast implants Resp: CTAB, no w/c/r, on room air CV: RRR, no m/r/g, no edema, pulses palpable, radial site looks good, no hematoma/edema GI: +BS, soft, non-tender MSK/Neuro: moves all extremities, CN intact grossly, no facial droop/slurred speech Psych: AOx3, pleasant and cooperative Skin: warm, dry Discharge Data Allergies Allergy/AdvReac Type Severity Reaction Status Date / Time No Known Drug Allergies Allergy Unknown Verified 09/10/21 20:52 Consultations 09/10/21 19:51 ED Decision to Admit Stat 09/11/21 10:35 Consult Cardiology Routine Procedures Performed Operation Date: 09/12/21 11:00 Actual Procedures p Cath, Left with Cors and Vent - Jose Martin Delcid MD s Cineradiography w/Routine Exam - Jose Martin Delcid MD p Drug Eluting Stent SGl Vessel - Sridhar Chaudhary MD Ordered Studies 09/12/21 06:41 CL Cath Imgs for PACS use only Routine 09/11 ECHOcardiogram Compared to study 2019, no change. LV normal in structure and function. EF 50- 60%. LV wall motion is normal. Grade I diastolic dysfunction. No significant valvular disease on technically limited doppler. Hospital Course (1) CAD (coronary artery disease): Chest pain with activity presenting as cardiac in nature at rest/activity and not relieved with rest when she went to her mother's house to check her BP, which was significantly elevated (uncontrolled at baseline) EKG without ischemic changes and losartan initially increased to 100mg daily for better BP control however given convincing story and strong family history, cardiology consulted and planned for cardiac catheterization A1c wnl, lipid panel not at goal given +cath s/p Cath 09/[address] Delcid with showed severe multivessel CAD which occluded RCA that fills left to right collaterals, SHONDA placement to OM2 with residual LAD disease After cardiac cath, patient developed pressure like sensation similar to what brought her in, and Nitro x 1 was administered which did resolve chest pain, but then she became diaphoretic/hypotensive with systolic BP to 70s along with associated nausea --> IVF bolus ordered, BP improved and patients symptoms resolved. Dr Chaudhary evaluated at bedside , repeat EKG benign but looked at spot check with ECHo given site of stent. Monitored overnight for safety and had been ambulating the halls chest pain free prior to discharge --To continue DAPT with ASA/plavix for 1 year, ASA daily indefinitely -- Started crestor and instructed to take HS to limit side effects -- Metoprolol 25mg BID initiated and sent at discharge in addition to her losartan 100mg as increased on admission Close f/u with cards at discharge as well as PCP. 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 May need additional agents if remains elevated outpatient See above regarding post-cath hypotension BP stable prior to d/c and expect increased losartan to improve over time (as well as metoprolol added due to CAD as above) (4) Depression: Continued Bupropion (5) Anxiety: Continued Bupropion, hydroxyzine (6) Dysmetabolic syndrome X: A1c 4.6 Lipid panel with improvement compared to prior values however not at goal given CAD Patient initially did not want any medications for such, but as discussed with CAD need for prevention and was sent on high dose Crestor weight loss recommended -- she states this current episode scared her and she is ready to start taking better care of herself Total Time Total Time Spent Total Time Spent (In Minutes): 45 Discharge Plan Discharge Items Patient Disposition: Home - Self-Care Reason For Visit: CHEST PAIN, HTN Discharge Diagnosis: Chest Pain, Coronary Artery Disease Condition on Discharge: Fair Goals: You have been hospitalized for an urgent problem which required surgery. During your stay at [facility], we have made an effort to correct the problem that brought you to the hospital while keeping you as comfortable as possible. Surgery and medications were used to bring your condition under control and your discharge instructions will include directions for any medications you should take after leaving the hospital. Please make sure to follow the advice of your surgeon regarding follow up with the surgeon and with your primary care provider. Activity: As commented below Activity Comment: no heavy lifting/exercise 2 weeks Driving/Machine Use: Resume 3 days after discharge Non-emergency contact: Primary Care Provider and Chart Computer Call non-emergency contact if: you have any medication questions, your symptoms worsen and your pain is not controlled Follow-up/Referrals: Jose Martin Delcid MD [Physician] - 09/19/21 2:00 pm Mary Castaneda DO [Primary Care Provider] - (Follow up appointment scheduled with Opal Charles PA-C.) Opal Charles PA-C [Physician Esters And Emulsifiers Supervisor] - 09/21/21 7:40 am (Please follow up with Opal Charles PA-C on Friday09/21/21 at 7:40 am. Please arrive to the office at 7:25 am for your appointment. If you are unable to keep this appointment, please call the office to reschedule at [phone].) Diet: Heart Healthy Addtl Attending Provider Instructions: You have been hospitalized for chest pain. Given family history and symptoms description, I consulted with cardiology and they felt we should proceed with a cardiac catheterization. You underwent cath and got a stent to your OM2 and had some blockage to your RCA with collateral blood flow. Your losartan was already increased to 100mg daily to help with blood pressure control. Per Dr Delcid, we are sending you with new prescriptions for the following: * Aspirin 81mg daily INDEFINITELY * PLAVIX 75mg DAILY -- DO NOT MISS A DOSE! This will be for ONE YEAR * Metoprolol tartrate 25mg by mouth TWICE daily * Crestor 40mg by mouth at night You should have follow up with cardiology and your PCP in the next week to monitor your progress. You have also been sent a prescription for nitroglycerin to take as needed if you develop chest pain. If after 3 doses still present/worsening please proceed to closest ER/call 911. Please return to ER for any symptoms concerning for you, worsening chest pian, shortness of breath or any other symptoms of concern. It has been a pleasure being a part of the medical team providing for you while you have been in the hospital. Take care! Addtl Bus Company Manager Provider Instructions: ACTIVITY RECOMMENDATIONS: Excess manipulation of the wrist should be avoided for the next 24-48 hours. * No lifting over 2 pounds (approximately a 1/2 gallon of milk) with the utilized arm for 24 hours. * No strenuous activity such as bowling or tennis for 3 days. * Keep the site of the procedure covered with a bandage for 24 hours. *You may shower the day after the procedure. Do not take a tub bath or submerge the puncture site in water for the next 3 days. *Do not operate any motorized equipment for 3 days. SPECIAL CARE INSTRUCTIONS: The site may be slightly bruised and sore following your procedure. Should any of the following occur, contact the Dr. who performed your procedure. 1. Redness/inflammation, swelling, chills, or fever, or colored drainage at procedure site within 3-7 days after your procedure. 2. Coldness, discoloration, ongoing numbness, severe pain, or swelling. Expect mild tingling of hand and tenderness at the puncture site for up to three days. If this persists beyond three days, or other symptoms develop, notify the Dr. who performed your procedure. BLEEDING: If the procedure site on your wrist begins to bleed, do not panic 1. Place 1 or 2 fingers firmly just slightly above the insertion site to stop the bleeding. You may be able to feel your pulse as you hold pressure. 2. Lift your finger after 5 minutes to see if the bleeding has stopped. 3. Once the bleeding has stopped, gently wipe the wrist area clean with a bandage. * If the bleeding from your wrist does not stop after 10 minutes, or if there is a large amount of bleeding or spurting, call 911 (do not drive yourself to the [facility]). SKIN IRRITATION: * You may experience some redness and/or swelling in the area where radiation was administered. If any skin irritation occurs, please contact your family physician. FOLLOW UP VISIT: 1. Follow up in cardiology office in 1 week. Call [phone] for questions/concerns. 2. Keep any scheduled doctor appointments. Pending Studies at Discharge: No Stand-Alone Forms: [facility], Work/School Release Medications and DC Order Prescriptions: New losartan 50 mg Tablet 100 mg PO QAM 30 Days Qty: 60 RF: 0 nitroglycerin [Nitrostat] 0.4 mg Tablet, Sublingual 0.4 mg sublingual Q5M PRN (Reason: chest pain) Qty: 14 RF: 0 metoprolol tartrate 25 mg Tablet 25 mg PO BID 30 Days Qty: 60 RF: 1 rosuvastatin [Crestor] 20 mg Tablet 40 mg PO HS Qty: 30 RF: 0 clopidogrel [Plavix] 75 mg tablet 75 mg PO DAILY Qty: 30 RF: 3 aspirin 81 mg capsule 81 mg PO DAILY Qty: 30 RF: 3 Continued bupropion HCl 300 mg tablet extended release 24 hr 300 mg PO QAM Qty: 90 RF: 1 hydroxyzine HCl 25 mg tablet 25 mg PO Q8H PRN (Reason: anxiety) Qty: 30 RF: 1 estradiol 10 mcg tablet 10 mcg PV 2XWK RF: 0 naproxen 500 mg tablet 500 mg PO BID PRN (Reason: Pain) RF: 0 Discontinued losartan 50 mg tablet 50 mg PO QAM Qty: 90 RF: 1 Discharge Orders: Discharge Order (Routine); Ordered 09/13/21 Ordered By: Kim Peace Admission Data Admit Date/Time: 09/12/21 16:14 Attending Provider: Samantha Florian Admit Provider: Geraldine Gilbert Primary Care Provider: Mary Castaneda Other Providers: Geraldine Gilbert ; Hector Magaña Other Interventions: Discharge Summary Assessment (RN) Last Done: 09/13/21 11:18 Supervising Physician Co-Signing Physician Notes PA Supervision Note: I personally saw and examined the patient. I verified all hall points and agree with SERAFIN Peace with the following exceptions and/or additions: S-patient feeling very well today. Has ambulated without any chest pains or shortness of breath. Is eating and drinking. No pain in the right wrist O- Vitals reviewed Gen: AAOx3, NAD HEENT: Anicteric sclerae, EOMI CV: RRR no mgr nl S1S2 Pulm: CTAB no wcr Abd: +BS soft NT ND no masses or hernias Ext: No edema, right wrist without hematoma Skin: No rashes, warm/dry Neuro: Full strength throughout A/X-80-skfs-old female here with unstable angina and found to have severe CAD now status post drug-eluting stent to the OM 2 with residual disease in LAD and with 100% occluded RCA with collaterals. Doing well Appreciate cardiology management Continue on dual antiplatelet therapy with aspirin and Plavix, high intensity statin, metoprolol and continue increased dose of losartan Stable for discharge to home Coding Level of Care Code D/C DAY MANAGEMENT >30 MINS Diagnoses CAD (coronary artery disease) I25.10 Elevated troponin R77.8 Hypertension I10 Hypertension type: unspecified Depression F32.9 Anxiety F41.9 Dysmetabolic syndrome X E88.81
== END 2021-09-13 12:19 | disposition home or self-care (01) | DRG 247 ==
LOC: 2W 17:23 → ED 17:23 → SUATTDRO 20:26 → 2W 22:14 → 2E 09-12 13:12
DX: I10 Essential (primary) hypertension; I95.9 Hypotension, unspecified; F41.9 Anxiety disorder, unspecified; Z98.82 Breast implant status; M81.0 Age-related osteoporosis without current pathological fracture; F32.A Depression, unspecified; E88.81 Metabolic syndrome and other insulin resistance; Z98.51 Tubal ligation status; Z87.39 Personal history of other diseases of the musculoskeletal system and connective tissue; G89.29 Other chronic pain; I25.110 Atherosclerotic heart disease of native coronary artery with unstable angina pectoris; Z85.828 Personal history of other malignant neoplasm of skin

== ENCOUNTER 2023-05-27 07:06 | Inpatient (IN) ==
--- NOTE | 2023-05-27 07:46 | History & Physical Bridge Note ---
Date of Service May 27, 2023 History & Physical Bridge Note I have examined the patient, reviewed the History & Physical and in the interval since the performance of the History & Physical I have noted the following changes of clinical significance: no changes noted
--- NOTE | 2023-05-27 07:47 | Pre Anesthesia Assessment ---
Date of Service May 27, 2023 Pre Sedation Assessment Cardiovascular + bradycardic Respiratory normal respiratory effort, lungs clear to auscultation Pre-Sedation Airway Assessment Smoking Status: Never smoker Hx Sleep Apnea: No Mallampati Class: III ASA: ASA3 NPO Status Date of Last Intake of Fluids: 05/27/23 Time of Last Intake of Fluids: 06:00 Last Oral Intake of Fluids Comment: sips with meds Date of Last Intake of Solid Food: 05/26/23 Time of Last Intake of Solid Foods: 18:00 Procedure Planning Contraindications for Sedation: none Current Medications Reviewed: Yes Notes The planned sedation has been discussed with the patient. Informed Consent was obtained. I have identified the patient, determined the appropriateness of sedation and have assessed the patient immediately prior to the procedure. All medicine(s) and interventions are by my order.
[2023-05-27] MEDS ORDERED: HEPARIN (PORCINE) 1000 UNIT/ML 10 ML (CATH LAB USE ONLY) ONE ×2 (08:04→09:48)
[2023-05-27] MEDS ORDERED: MIDAZOLAM HCL 1 MG/ML 2ML VIAL ONE ×3 (08:04→10:02)
[2023-05-27] MEDS ORDERED: fentaNYL citrate PF 100 MCG/2 ML VIAL ONE ×2 (08:04→10:01)
[2023-05-27] MEDS ORDERED: niCARdipine HCL INJ 2.5 MG/ML 10 ML AMP ONE (08:04)
[2023-05-27] MEDS ORDERED: NITROGLYCERIN/D5W 100MCG/ML 20ML SYR ONE (08:05)
--- NOTE | 2023-05-27 09:15 | Cardiac Catheterization ---
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 Cardiac Status Clinical evaluation leading to the procedure CAD Presenation: Stable angina Anginal Classification: CCS III Heart Failure: No Cardiogenic Shock within 24 Hours: No Cardiac Arrest within 24 Hours: No Imaging Studies Past 6 Months: Yes Stress Studies Past 6 Months: No Coronary Anatomy Dominant: Right Diagnostic Physicians Name: Jose Martin Delcid MD Status: Elective Closure Device Percutaneous Entry Location: Radial Closure Device: Radial Band Recommendations: Management Recommendatons Cardiac Cath Procedure Full Procedure Date May 27, 2023 Pre-Procedure Diagnosis Pre-Procedure Diagnosis: Angina and CAD AUC Score AUC Score: 8 Post-Procedure Diagnosis Post-Procedure Diagnosis: Severe CAD and Elevated Intracardiac Pressures Procedure(s) Performed Procedure(s) Performed: Coronary Angiography, Left Heart Cath and Right Heart Cath Exhibition Organiser Jose Martin Delcid MD Marble Installation Helper(s) Deibler Estimated Blood Loss Estimated Blood Loss: < 20 ml Medication(s) Medication(s): Fentanyl, Heparin, Lidocaine 1%, Nicardipine and Versed Summary of Findings Procedures: 1. Coronary angiography 2. Left heart catheterization 3. Right heart catheterization 4. Moderate sedation Indication: Ms. Rubi is a pleasant 68-year-old female with history of CAD, OM PCI, dyslipidemia, and hypertension who has been experiencing angina on exertion and lower extremity edema. Angina has persisted despite titrating beta-theresa. She did not tolerate nitrate therapy due to significant headache. Coronary angiography: 1. Left main: No significant CAD. 2. Left anterior descending: Mid LAD 30 to 40%. Early distal LAD 70 to 80%. MARION-3 flow. Small D1 ostial/proximal 50 to 60%. Small D2 without significant CAD. 3. Circumflex: No significant CAD within the circumflex. OM1 mid 20%. OM 2 luminal irregularities proximally but patent stent. 4. Right coronary artery: Dominant RCA. Mid RCA 100%. Faint to faint right to right collaterals. Left to right collaterals. Left heart catheterization: 1. Left ventriculography was not performed. 2. No aortic stenosis. Peak to peak gradient across the aortic valve is 0. 3. Mildly elevated LVEDP; 17 mmHg. Right heart catheterization: 1. Pulmonary capillary wedge pressure: V wave 22; mean 15 mmHg 2. Pulmonary artery pressure: 43/16 with mean 25 mmHg 3. Right ventricular pressure: 42/5; RVEDP 16 mmHg 4. Right atrial pressure: A-wave 15; V wave 13; mean 7 mmHg 5. Transpulmonary gradient: 10 mmHg Moderate sedation: 1. Sedation start time: 8:18 AM 2. Sedation end time: 8:49 AM Procedural notes: 1. There was difficulty in advancing the right heart catheter (6 Puerto Rican). Venography demonstrated tortuosity. A 5 [place] right heart catheter was easily advanced. 2. Coronary angiography was performed via the right radial artery without known complication with 5 [place] JL 3.5 and JR4 diagnostic catheters. Impression: 1. Severe LAD CAD. 2. Patent OM2 stent. 3. Chronically occluded RCA with left to left and faint right to right collaterals. 4. Otherwise, nonobstructive CAD. 5. Mildly elevated filling pressures. 6. Mild pulmonary hypertension. 7. No aortic stenosis. Plan: 1. Images were reviewed with Dr. Chaudhary of interventional cardiology. Given ongoing symptoms despite titration of beta-theresa and now being well beta blocked while also on amlodipine and unable to tolerate nitrate therapy, decision was made to proceed with PCI of LAD. Hemodynamics Rest Ao:: 139/63 Final Ao: 137/69 LV: 146/10/17 Recommendations Recommendations: Management Recommendatons Specimens Specimens: None Radiation Exposure (mGy) 989 mGy. Fluoro time 9.3 min. Contrast (mls) 30 ml Procedural Complication(s) None Disposition Remains in labor relations officer for possible LAD PCI I attest to the content of the Intraoperative Record and any orders documented therein. Any exceptions are noted below. [facility] Card Cath Procedure Codes Cardiac Catheterization Procedure 1: Cardiovascular Cath Procedures: 46187 Coronaries & LHC (+/-LV) & RHC Moderate Sedation Procedure 1: Sedation/Anesthesia: 94720 Mod Sedation by the same physician;Init15 Min Child Age 5 & Up Procedure 2: Sedation/Anesthesia: 32817 Mod Sedation by the same physician; Ea [id number] Minutes Procedure 3: Sedation/Anesthesia: 88627 Mod Sedation by the same physician; Ea [id number] Minutes PG Care Time/CCT Total # of Minutes Spent Total Time Spent with Patient: Total time spent is greater than 50% in coordination of care (as documented) at patient's floor/unit and/or counseling patient:
[2023-05-27] MEDS ORDERED: CLOPIDOGREL BISULFATE 300 MG TAB ONE (09:30)
[2023-05-27] MEDS ORDERED: ONDANSETRON INJ 2 MG/ML 2 ML VIAL ONE (10:03)
[2023-05-27] MEDS ORDERED: FUROSEMIDE 40 MG/4 ML VIAL IV ONE (10:13)
[2023-05-27] MEDS ORDERED: EPTIFIBATIDE 2 MG/ML 10 ML VIAL (CATH LAB USE ONLY) IV ONE ×2 (11:05→11:19)
[2023-05-27] MEDS ORDERED: EPTIFIBATIDE 0.75 MG/ML 75MG VIAL (CATH LAB USE ONLY) IV ONE (11:05)
[2023-05-27] MEDS ORDERED: TICAGRELOR 90 MG TAB ONE (11:22)
[2023-05-27] MEDS ORDERED: ONDANSETRON INJ 2 MG/ML 2 ML VIAL IV PRN (11:55)
[2023-05-27] MEDS ORDERED: EPTIFIBATIDE BOLUS/DRIP IV STA (12:11)
--- NOTE | 2023-05-27 13:16 | XRay Report ---
XR chest 1V portable CLINICAL HISTORY: Hypoxia. COMPARISON STUDY: Chest CT September 25, 2021. Chest radiograph May 12, 2023. FINDINGS: No pneumothorax or pleural effusion is present. Cardiomegaly is unchanged. Mediastinal cont ours are stable. Subtle Abebe B-lines are noted. Mild upper lobe predominant interstitial thickening is present. IMPRESSION: Cardiomegaly. Subtle Abebe B-lines and upper lobe predominant interstitial thickening w hich favor pulmonary edema. ACT 112: Negative or not required by law. Electronically signed by: Pablito Philippe M.D. 05/27/2023 1:14 PM
[2023-05-27 13:51] LABS: iSTAT Arterial Blood Gas HCO3 24 meg/L (19-24); iSTAT Arterial Blood Gas pCO2 43 mmHg (35-46); iSTAT Arterial Blood Gas pH 7.35 (7.35-7.45); iSTAT Arterial Blood Gas pO2 33 mmHg (80-95); iSTAT Carbon Dioxide 25 mmol/L (24-31); iSTAT Hematocrit 30 % (37-47); iSTAT Hemoglobin 10.2 g/dl (12.0-16.0); iSTAT Potassium 3.4 mmol/L (3.3-5.0); iSTAT Sodium 145 mmol/L (135-144)
--- NOTE | 2023-05-27 16:53 | Cardiac Catheterization ---
[facility] Data: Nuclear Control Room Operator Cardiac Status Clinical evaluation leading to the procedure CAD Presenation: Stable angina Anginal Classification: CCS III Diagnostic Physicians Name: Binh Chaudhary MD Closure Device Recommendations: PCI without planned CABG Cardiac Cath Procedure Full Procedure Date May 27, 2023 Pre-Procedure Diagnosis Pre-Procedure Diagnosis: Angina and CAD AUC Score AUC Score: 8 Post-Procedure Diagnosis Post-Procedure Diagnosis: Successful PCI and Elevated Intracardiac Pressures Procedure(s) Performed Procedure(s) Performed: Coronary Angiography, Left Heart Cath, Drug Eluting Stent and IVUS Inspector Clip On Sunglasses Binh Chaudhary MD Java Enterprise Architect(s) [place]ler Estimated Blood Loss Estimated Blood Loss: < 20 ml Medication(s) Medication(s): Fentanyl, Heparin, Integrilin, Lidocaine 1%, Nicardipine and Versed Summary of Findings Indication: Refractory angina Access: 6 Fr right radial Catheters: EBU 3.5 guide Findings: For full details of patient's coronary angiography please see cath report dictated by Dr. Delcid. Briefly, patient found to have severe 75% distal LAD disease. OM 2 stent widely patent. RCA LEAD DATABASE ADMINISTRATOR with [id number] collaterals. Decision to proceed with PCI of distal LAD. -- PCI -- Antithrombotic therapy: Heparin, ticagrelor, Integrilin Procedure: Left main cannulated with EBU 3.5 guide Pre-procedure flow MARION 3 Whisper wire passed across lesion into distal vessel Distal LAD lesion predilated with 2.0 compliant balloon Dilated lesion stented with 2.25 x 22 mm [place] drug-eluting stent Stent post-dilated with 2.5 noncompliant balloon IC vasodilators administered for spasm Patient noted to have moderate focal mid LAD stenosis difficult for equipment to pass to distal LAD decision during PCI and decision to place second SHONDA. 2.75 x 12 mm [place] placed to mid LAD. Postdilated with stent balloon. Post procedure MARION 3 flow, stents well expanded with minimal residual stenosis and no apparent cardiac complications. Minutes after completion of procedure before radial sheath removed patient developed severe crushing chest pain. No ST changes on monitor. Repeat angiography revealed acutely occluded ostial LAD with MARION 0 flow. Left main recannulated with EBU 3.5 guide Eventually able to pass jet pilot 50 wire into true lumen and across prior stents Farley IVUS catheter placed to mid LAD. Pullback revealed widely patent stents with dissection in proximal LAD extending back to ostium. LAD stented with 3.0 x 34 mm [place] drug-eluting stent extending back to ostium. Stent postdilated with stent balloon. Post stent deployment angiography revealed MARION-3 flow in LAD but now compromised flow in circumflex thought secondary to dissection. Eventually able to pass BMW wire into true lumen and across stent in OM 2 OTW balloon passed to OM 2 and confirmed true lumen position. Proximal to mid circumflex predilated with 2.5 balloon, minimal flow reestablished. Unable to pass 2.75 x 22 mm [place] SHONDA across angulated mid circumflex Telescope support catheter placed and mid LAD predilated with 3.0 balloon Wire exchanged for TripleLift support wire Eventually able to pass 2.75 x 15 mm [place] to ostial/proximal circumflex. Stent postdilated with stent balloon. Following send appointment MARION I-II flow with minimal flow in mid circumflex between proximal stent and OM2 stent By 50 wire navigated into medium OM1 Mid circumflex predilated with 2.5 balloon 2.75 x 22 mm [place] SHONDA placed to mid circumflex overlapping proximal aspect of old OM 2 stent and distal aspect of D2 proximal circumflex stent Stents well-expanded with MARION-3 flow into OM1, OM 2 and distal AV groove circumflex Repeat IVUS of circumflex showed well-expanded stents with residual moderate ostial circumflex disease and questionable distal left main small dissection flap Initial angiography noted to have apparent thrombus in mid LAD stents LAD rewired with jet pilot 50 Mid LAD stents postdilated with 3.0 NC balloon and started on IV Integrilin. Post inflation thrombus improved. Final result showed MARION-3 flow in LAD, circumflex with well-expanded stents and questionable minimal residual stenosis at LAD ostium. During procedure patient hemodynamically and electrically stable. Became increasingly hypoxic requiring IV Lasix x 1 and nonrebreather. Nausea/vomiting x 1 without clear aspiration. O2 requirements improved at completion of procedure. Postprocedure LVEDP 18 Arterial Closure: TR band Summary: 1. PCI of mid and distal LAD with 2 nonoverlapping SHONDA (2.75 x 12, 2.25 x 22 mm [place]) 2. Post procedure chest pain due to occlusive LAD ostial dissection (thought secondary to guide) 3. Occlusive proximal circumflex dissection during repair of LAD dissection 4. Acute hypoxic respiratory failure 5. PCI of ostial LAD dissection with additional SHONDA (3.0 x 34 mm Roni) from ostium to prior mid stent. 6. PCI of proximal circumflex dissection with 2 additional SHONDA (2.75 x 15, 2.75 x 22 mm [place]) extending to prior OM2 stent. Recommendations: To ICU for continued monitoring Loaded with ticagrelor 180 mg in In Nuclear Control Room Operator Continue Integrilin infusion for 12 hours Trend troponin to peak repeat echocardiogram Additional diuresis as needed Resume home beta-theresa, ARB as BP allows. Hemodynamics Rest Ao:: 139/63/93 Final Ao: 148/76/103 LV: 144/8 Recommendations Recommendations: PCI without planned CABG Specimens Specimens: None Radiation Exposure (mGy) 8597 Contrast (mls) 195 Anesthesia Moderate 9575-1930 Procedural Complication(s) None Disposition ICU I attest to the content of the Intraoperative Record and any orders documented therein. Any exceptions are noted below. [facility] Card Cath Procedure Codes Therapeutic Services & Ancillary Procedure 1: Cardiovascular Tx and Anc Procedures: 06115 IV Ultrasound (Coronary or Graft) Procedure 2: Cardiovascular Tx and Anc Procedures: 56749 IV Ultrasound Ea addl vessel Moderate Sedation Procedure 2: Sedation/Anesthesia: 16734 Mod Sedation by the same physician; Ea [id number] Minutes Stenting Procedure 1: Cardiovascular Stent Procedures: 77839 Perc transcatheter placement of intracoronary stent(s), with ang Procedure 2: Cardiovascular Stent Procedures: 66346 Ea addl branch of a major coronary artery PG Care Time/CCT Total # of Minutes Spent Total Time Spent with Patient: Total time spent is greater than 50% in coordination of care (as documented) at patient's floor/unit and/or counseling patient:
[2023-05-27] MEDS: EPTIFIBATIDE 75 MG/100 ML VIAL IV SCH ×4 (16:56→23:39)
--- NOTE | 2023-05-27 16:56 | Pulmonary Consultation ---
Date of Consultation May 27, 2023 Assessment & Plan (1) S/P coronary artery stent placement: 68-year-old female with a past medical history of anxiety, depression, hypertension and metabolic syndrome who presented for elective cardiac catheterization and developed coronary artery dissection requiring numerous stents. She is now hemodynamically stable. She is completing Integrilin infusion. Echocardiogram is pending. She is in the ICU for close monitoring of her airway and hemodynamics. Continue dual antiplatelet therapy per cardiology recommendations and high-dose statin. Continue to monitor on telemetry. Suspect downgrade from ICU tomorrow if all stable. History of Present Illness Reason for Consultation: Post coronary artery intervention monitoring in the ICU Attending Physician: Jose Martin Delcid MD History of Present Illness 68-year-old female with a past medical history of hypertension, dyslipidemia, anxiety, depression and osteoporosis who presented for elective left heart catheterization and right heart catheterization. She ultimately was identified as having severe left anterior descending coronary artery disease and a chronically occluded RCA with left to left and faint right to right collaterals. During the procedure she developed coronary artery dissection required numerous stents. She is currently on Integrilin infusion in the ICU and is in stable condition. She has no hemodynamic issues. She does endorse some mild nausea and increased anxiety. Allergies Allergy/AdvReac Type Severity Reaction Status Date / Time No Known Drug Allergies Allergy Unknown Verified 05/27/23 07:51 Home Medications Medication Instructions Recorded Confirmed Type aspirin 81 mg capsule 81 mg PO QAM 04/30/22 05/27/23 History amlodipine 5 mg tablet 5 mg PO QAM #90 tabs 07/23/22 05/27/23 Rx losartan 100 mg tablet 100 mg PO QAM #90 tabs 12/05/22 05/27/23 Rx bupropion HCl 300 mg 24 hr tablet, 300 mg PO QAM #90 tabs 01/13/23 05/27/23 Rx extended release (Wellbutrin XL) rosuvastatin 40 mg tablet (Crestor) 40 mg PO HS #90 tabs 03/03/23 05/27/23 Rx pantoprazole 40 mg tablet,delayed 40 mg PO DAILY #90 tabs 05/06/23 05/27/23 Rx release metoprolol succinate 100 mg 100 mg PO HS #90 tabs 05/12/23 05/27/23 Rx tablet,extended release 24 hr furosemide 20 mg tablet 20 mg PO DAILY PRN fluid 05/20/23 05/27/23 History semaglutide (weight loss) 0.25 0.25 mg (0.5 mL) subcut Q7D 4 05/20/23 05/20/23 Rx mg/0.5 mL subcutaneous pen weeks #2 mL injector (Erica) Patient History Medical History (Updated 05/20/23 @ 14:15 by Mary Castaneda DO) Dyslipidemia CAD (coronary artery disease) Chest pain Depression Basal cell carcinoma (BCC) hx Hx of varicose veins History of squamous cell carcinoma in situ of skin Osteoporosis Benign essential hypertension Anxiety Surgical History (Updated 05/20/23 @ 14:03 by Mary Castaneda DO) S/P right knee arthroscopy History of cardiac cath 09/12/2021 [facility] with x1 stent. S/P coronary artery stent placement x1 on 09/12/2021 at [facility] History of squamous cell carcinoma excision History of basal cell carcinoma (BCC) excision History of repair of rotator cuff H/O abdominoplasty S/P tubal ligation History of colonoscopy History of bunionectomy LEFT FOOT History of section Hx of breast implants, bilateral Family History Father Diabetes Coronary heart disease Mother Osteoporosis Coronary heart disease Sister Coronary heart disease Sarcoidosis Lung disease Other Heart disease No family history of adverse response to anesthesia Denies family history of Ovarian cancer Prostate cancer Myocardial infarction Breast cancer Lung cancer Colorectal cancer Uterine cancer Social History (Updated 05/20/23 @ 14:27 by Mary Castaneda DO) Smoking Status: Never smoker Second Hand Exposure: No; Do You Dip or Chew Tobacco: No; Hx Alcohol Use: No Hx Substance Use: No Preferred Language: Wolof Communication Ability: Effective Visual Impairment: No Limitations Hearing Ability: Normal Heating Equipment Installer Required: No Beliefs That Will Affect Care: None marital status: Current Living Situation: Family Current Living Situation Comment: lives w/ mother 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al status: employed 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: [employer] in [place] Other Information That Helps Us Care for You: No Feels Safe at Home: Yes Safety Concerns: Feels Safe At This Time Diet: regular caffeine: Yes during the past year weight has: remained stable Dental Care, Regularly: Yes Physical Activity Frequency: Daily Seatbelt Use: always Sunscreen Use: Yes Assistive Devices: None Review of Systems Review of Systems: All systems reviewed & are unremarkable except as noted in HPI & below Physical Exam Physical Exam: Constitutional: Patient appears to be of their stated age. Patient is in no apparent distress. Patient is well-developed. Eyes: Pupils are equal round and reactive to light. Conjunctivae are normal. Anicteric sclera. Ears nose, mouth and throat: Mallampati class 3. Normal posterior oropharynx. Uvula is midline. Neck: Trachea is midline. Visual inspection is normal. Respiratory: Faint bibasilar crackles. No increased work of breathing. Cardiovascular: Regular rate and rhythm. No murmurs. No edema. Gastrointestinal: Normal bowel sounds, soft, nontender and nondistended. No hepatosplenomegaly noted. Musculoskeletal: No cyanosis. Patient is able to move all extremities. Strength is 5 out of 5 in the upper and lower extremities. Skin: No rashes, warm dry and intact. Neurologic: No obvious focal neurological deficits seen. Psychiatric: Alert and oriented x3 with a euthymic affect. Results & Data Results & Data Vital Signs (Past 12 Hours) Vital Signs Temp Pulse Pulse Resp BP Pulse Ox O2 Del Method 05/27/23 15:31 36.3 C L 05/27/23 13:57 54 L 05/27/23 13:15 53 L 18 131/79 90 Room Air 05/27/23 13:00 53 L 18 130/79 90 Room Air 05/27/23 12:45 53 L 18 123/80 94 Oxymask 05/27/23 12:30 55 L 18 133/81 94 Oxymask 05/27/23 12:15 54 L 18 129/79 95 Oxymask 05/27/23 12:00 54 L 18 141/81 H 95 Oxymask 05/27/23 11:40 68 18 141/81 H 95 Oxymask 05/27/23 07:27 56 L 16 155/90 H 99 Room Air O2 Flow Rate 05/27/23 15:31 05/27/23 13:57 05/27/23 13:15 05/27/23 13:00 05/27/23 12:45 10 05/27/23 12:30 10 05/27/23 12:15 10 05/27/23 12:00 10 05/27/23 11:40 10 05/27/23 07:27 PG Care Time/CCT Total # of Minutes Spent Total Time Spent with Patient: Total time spent is greater than 50% in coordination of care (as documented) at patient's floor/unit and/or counseling patient: Coding Level of Care Code 35021 IN/OBS CONSULT LVL 3,45M Diagnoses S/P coronary artery stent placement Z95.5
[2023-05-27] MEDS: ICU Protocol for HYPERglycemia SCH ×2 (17:44→20:26)
[2023-05-27] MEDS ORDERED: Nursing to Pharmacy Communication SCH (18:45)
[2023-05-27] MEDS: ROSUVASTATIN CALCIUM 20 MG TAB PO SCH (20:27)
[2023-05-27] MEDS: TICAGRELOR 90 MG TAB PO SCH (23:36)
[2023-05-27] MEDS ORDERED: MoRPHine SULFATE 2 MG/ML CARP IV STA (23:55)
[2023-05-27] MEDS ORDERED: NITROGLYCERIN 2% OINTMENT 30GM TUBE EXT ONE (23:55)
[2023-05-28] MEDS ORDERED: NITROGLYCERIN SL 0.4 MG/TAB TAB SL PRN (00:04)
[2023-05-28 04:22] LABS: Basophils # (auto) 0.03 K/uL (0.00-0.20); Basophils % (auto) 0.5 %; Eosinophils # (auto) 0.03 K/uL (0.00-0.50); Eosinophils % (auto) 0.5 %; Hematocrit (blood only) 37.6 % (37.0-47.0); Hemoglobin 13.1 g/dl (12.0-16.0); Immature Granulocytes # (auto) 0.01 K/uL (0.01-0.20); Immature Granulocytes % (auto) 0.2 %; Lymphocytes # (auto) 1.11 K/uL (1.20-3.40); Mean Corpuscular Hemoglobin 31.3 pg (25.0-34.0); Mean Corpuscular Hgb Conc 34.8 g/dL (32.0-36.0); Mean Corpuscular Volume 89.7 fL (80.0-100.0); Mean Platelet Volume 10.1 fL (9.4-12.4); Monocytes # (auto) 0.68 K/uL (0.11-0.59); Neutrophils % (auto) 69.8 %; Platelet Count 178 K/uL (130-400); RDW Coefficient of Variation 13.2 % (11.5-14.5); RDW Standard Deviation 42.5 fL (36.4-46.3); Red Blood Count 4.19 M/uL (4.20-5.40); White Blood Count 6.16 K/ul (4.8-10.8)
[2023-05-28 04:37] LABS: BUN Creatinine Ratio 12.3 (10-20); Calcium 8.9 mg/dl (8.6-10.3); Creatinine Clr Calc Pharmacy 84.2 ml/min; Est GFR (African American) 99.5 ml/min; Est GFR (Non-African American) 85.8 ml/min; Magnesium 1.8 mg/dl (1.7-2.4); Potassium 3.1 mmol/L (3.5-5.1)
[2023-05-28] MEDS ORDERED: POTASSIUM CHLORIDE CRTAB 20 MEQ TABCR PO STA (04:56)
[2023-05-28] MEDS: POTASSIUM CHLORIDE / WTR 10 MEQ/100 ML PLCT IV SCH ×4 (06:13→11:49)
[2023-05-28] MEDS: ICU Protocol for HYPERglycemia SCH ×2 (08:29→11:49)
[2023-05-28] MEDS: ASPIRIN 81 MG ECTAB PO SCH (08:29)
[2023-05-28] MEDS: buPROPion XL 300 MG TABCR PO SCH (08:29)
[2023-05-28] MEDS: TICAGRELOR 90 MG TAB PO SCH ×2 (08:29→20:08)
[2023-05-28] MEDS: PANTOprazole 40 MG TAB PO SCH (08:29)
[2023-05-28] MEDS: MAGNESIUM SULFATE / D5W 1 GM/100 ML BAG IV SCH ×2 (10:02→11:49)
--- NOTE | 2023-05-28 10:09 | XCELERA ---
[id number] \\[id number]
--- NOTE | 2023-05-28 10:33 | Critical Care Progress Note ---
Date of Service May 28, 2023 Assessment & Plan (1) S/P coronary artery stent placement: Plan: 68-year-old female with a past medical history of anxiety, depression, hypertension and metabolic syndrome who presented for elective cardiac catheterization and developed coronary artery dissection requiring numerous stents. She is now hemodynamically stable. She completed an Integrilin infusion. Hemoglobin and platelet count stable. Replacing potassium and magnesium. Troponin did climb overnight expectantly and has down trended. Echocardiogram per report from engineering production liaison largely unremarkable. Continue dual antiplatelet therapy per cardiology recommendations and high-dose statin. Downgrade from ICU to telemetry. Appreciate cardiology input. Admission and Anticipated Discharge Date Admission Date: May 27, 2023 Subjective Patient hemodynamically stable overnight. She did have a brief episode of shortness of breath and required a low-dose of morphine with improvement. She is resting comfortably today. No significant chest pain, shortness of breath, fevers or chills presently. Review of Systems Review of Systems: All systems reviewed & are unremarkable except as noted in HPI & below Physical Exam Physical Exam: Constitutional: Patient appears to be of their stated age. Patient is in no apparent distress. Patient is well-developed. Eyes: Pupils are equal round and reactive to light. Conjunctivae are normal. Anicteric sclera. Ears nose, mouth and throat: Mallampati class 3. Normal posterior oropharynx. Uvula is midline. Neck: Trachea is midline. Visual inspection is normal. Respiratory: Faint bibasilar crackles. No increased work of breathing. Cardiovascular: Regular rate and rhythm. No murmurs. No edema. Gastrointestinal: Normal bowel sounds, soft, nontender and nondistended. No hepatosplenomegaly noted. Musculoskeletal: No cyanosis. Patient is able to move all extremities. Strength is 5 out of 5 in the upper and lower extremities. Skin: No rashes, warm dry and intact. Neurologic: No obvious focal neurological deficits seen. Psychiatric: Alert and oriented x3 with a euthymic affect. Results & Data Results & Data Vital Signs (Past 12 Hours) Vital Signs Temp Pulse Resp BP Pulse Ox 05/28/23 10:00 113/72 05/28/23 10:00 64 17 98 05/28/23 09:00 64 23 97 05/28/23 08:00 118/70 05/28/23 08:00 66 14 97 12/20/23 08:00 60 05/28/23 07:00 62 16 98 05/28/23 07:00 117/74 05/28/23 06:00 129/65 05/28/23 06:00 64 15 97 05/28/23 05:00 122/68 05/28/23 05:00 60 22 94 05/28/23 04:50 60 27 H 96 05/28/23 04:40 58 L 15 97 05/28/23 04:30 59 L 13 97 05/28/23 04:20 60 13 96 05/28/23 04:12 36.6 C 05/28/23 04:10 65 17 96 05/28/23 04:00 121/76 05/28/23 04:00 60 13 97 05/28/23 03:50 65 19 94 05/28/23 03:42 67 19 97 05/28/23 03:30 61 18 96 05/28/23 03:20 60 23 93 05/28/23 03:10 59 L 17 94 05/28/23 03:00 129/73 05/28/23 03:00 60 22 93 05/28/23 02:50 59 L 26 H 95 05/28/23 02:40 60 15 93 05/28/23 02:30 61 26 H 94 05/28/23 02:20 63 24 92 05/28/23 02:10 63 29 H 93 05/28/23 02:00 61 12 94 05/28/23 02:00 123/74 05/28/23 01:50 61 16 96 05/28/23 01:40 61 26 H 93 05/28/23 01:30 62 20 92 05/28/23 01:20 61 35 H 97 05/28/23 01:10 63 17 95 05/28/23 01:00 63 16 95 05/28/23 01:00 129/78 05/28/23 00:50 67 22 94 05/28/23 00:40 95 05/28/23 00:30 67 22 92 05/28/23 00:20 71 16 93 05/28/23 00:10 71 15 97 05/28/23 00:00 132/74 05/28/23 00:00 63 23 93 05/28/23 00:00 36.5 C 05/27/23 23:58 134/79 05/27/23 23:58 63 20 95 05/27/23 23:50 65 17 94 05/27/23 23:40 66 28 H 95 05/27/23 23:30 66 23 93 05/27/23 23:20 62 12 92 05/27/23 23:10 60 41 H 97 05/27/23 23:00 129/77 05/27/23 23:00 66 14 94 05/27/23 22:50 66 18 97 05/27/23 22:40 65 26 H 97 Coding Level of Care Code 44353 SUB INP/OBS CARE 07/03MIN Diagnoses S/P coronary artery stent placement Z95.5
--- NOTE | 2023-05-28 11:23 | Cardiology Progress Note ---
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 Preserved LV function with lateral/inferolateral wall motion abnormality 3. Trace pericardial effusion 4. Hypertension 5. Dyslipidemia Hemodynamically and electrically stable overnight No chest pain this morning, troponin downtrending No signs of heart failure on exam. IVC flat No apparent access site complications. Overall patient seems stable following complicated PCI yesterday. Ok with transfer to telemetry today and gradual increase in activity. Integrilin infusion discontinued this morning. Continue DAPT with aspirin, ticagrelor Restart metoprolol today. Losartan as BP allows. -- Continue current statin. -- Will repeat echo tomorrow to reassess pericardial effusion. -- Tentatively targeting Friday for discharge. Appreciate ICU team care. Admission and Anticipated Discharge Date Admission Date: May 27, 2023 Subjective Mild chest tightness overnight, responded to low-dose morphine. ECG without significant changes. Troponin downtrending. This morning denies chest pain. Reports still feeling like cannot completely take a deep breath then. No shortness of breath walking to bathroom. Telemetry reviewedno significant ectopy Repeat echo todaytechnically limited but overall low normal function with mild lateral/inferolateral hypokinesis. Review of Systems Review of Systems: All systems reviewed & are unremarkable except as noted in HPI & below Physical Exam Physical Exam: General: Comfortable HEENT: Sclerae anicteric Lungs: Clear to auscultation bilaterally, no crackles or wheezes Cardiac: Regular rate and rhythm, no murmurs. No JVD Vascular: Right radial artery access site with minimal ecchymosis, no hematoma. Distal pulse and sensation intact. Abdomen: Soft, nontender Extremities: Well perfused, no peripheral edema Neuro: Nonfocal Psych: Alert orient x3, normal affect and mood Results & Data Vital Signs (Past 12 Hours) Vital Signs Temp Pulse Resp BP Pulse Ox 05/28/23 10:00 113/72 05/28/23 10:00 64 17 98 05/28/23 09:00 64 23 97 05/28/23 08:00 118/70 05/28/23 08:00 66 14 97 05/28/23 08:00 60 05/28/23 07:00 62 16 98 05/28/23 07:00 117/74 05/28/23 06:00 129/65 05/28/23 06:00 64 15 97 05/28/23 05:00 122/68 05/28/23 05:00 60 22 94 05/28/23 04:50 60 27 H 96 05/28/23 04:40 58 L 15 97 05/28/23 04:30 59 L 13 97 05/28/23 04:20 60 13 96 05/28/23 04:12 97.9 F 05/28/23 04:10 65 17 96 05/28/23 04:00 121/76 05/28/23 04:00 60 13 97 05/28/23 03:50 65 19 94 05/28/23 03:42 67 19 97 05/28/23 03:30 61 18 96 05/28/23 03:20 60 23 93 05/28/23 03:10 59 L 17 94 05/28/23 03:00 129/73 05/28/23 03:00 60 22 93 05/28/23 02:50 59 L 26 H 95 05/28/23 02:40 60 15 93 05/28/23 02:30 61 26 H 94 05/28/23 02:20 63 24 92 05/28/23 02:10 63 29 H 93 05/28/23 02:00 61 12 94 05/28/23 02:00 123/74 05/28/23 01:50 61 16 96 05/28/23 01:40 61 26 H 93 05/28/23 01:30 62 20 92 05/28/23 01:20 61 35 H 97 05/28/23 01:10 63 17 95 05/28/23 01:00 63 16 95 05/28/23 01:00 129/78 05/28/23 00:50 67 22 94 05/28/23 00:40 95 05/28/23 00:30 67 22 92 05/28/23 00:20 71 16 93 05/28/23 00:10 71 15 97 05/28/23 00:00 132/74 05/28/23 00:00 63 23 93 05/28/23 00:00 97.7 F 05/27/23 23:58 134/79 05/27/23 23:58 63 20 95 12/19/23 23:50 65 17 94 05/27/23 23:40 66 28 H 95 05/27/23 23:30 66 23 93 05/27/23 23:20 62 12 92 PG Care Time/CCT Total # of Minutes Spent Total Time Spent with Patient: Total time spent is greater than 50% in coordination of care (as documented) at patient's floor/unit and/or counseling patient: Coding Level of Care Code 26329 SUB INP/OBS CARE 3/50MIN Diagnoses CAD (coronary artery disease) I25.10
[2023-05-28] MEDS: METOPROLOL TARTRATE 25 MG TAB PO SCH ×2 (12:51→20:06)
[2023-05-28] MEDS: ROSUVASTATIN CALCIUM 20 MG TAB PO SCH (20:06)
[2023-05-29 05:06] LABS: Basophils # (auto) 0.04 K/uL (0.00-0.20); Basophils % (auto) 0.8 %; Eosinophils # (auto) 0.08 K/uL (0.00-0.50); Eosinophils % (auto) 1.7 %; Hematocrit (blood only) 38.5 % (37.0-47.0); Hemoglobin 13.2 g/dl (12.0-16.0); Immature Granulocytes # (auto) 0.01 K/uL (0.01-0.20); Immature Granulocytes % (auto) 0.2 %; Lymphocytes # (auto) 1.38 K/uL (1.20-3.40); Lymphocytes % (auto) 28.9 %; Mean Corpuscular Hgb Conc 34.3 g/dL (32.0-36.0); Mean Corpuscular Volume 90.4 fL (80.0-100.0); Mean Platelet Volume 9.6 fL (9.4-12.4); Monocytes # (auto) 0.61 K/uL (0.11-0.59); Monocytes % (auto) 12.8 %; Neutrophils # (auto) 2.66 K/uL (1.40-6.50); Neutrophils % (auto) 55.6 %; Platelet Count 165 K/uL (130-400); RDW Coefficient of Variation 13.6 % (11.5-14.5); Red Blood Count 4.26 M/uL (4.20-5.40); White Blood Count 4.78 K/ul (4.8-10.8)
[2023-05-29 05:36] LABS: BUN Creatinine Ratio 15.3 (10-20); Calcium 8.6 mg/dl (8.6-10.3); Creatinine Clr Calc Pharmacy 69.9 ml/min; Est GFR (African American) 82.8 ml/min; Est GFR (Non-African American) 71.4 ml/min; Magnesium 2.2 mg/dl (1.7-2.4); Potassium 4.1 mmol/L (3.5-5.1)
[2023-05-29] MEDS: ASPIRIN 81 MG ECTAB PO SCH (07:35)
[2023-05-29] MEDS: buPROPion XL 300 MG TABCR PO SCH (07:35)
[2023-05-29] MEDS: METOPROLOL TARTRATE 25 MG TAB PO SCH ×2 (07:36→21:08)
[2023-05-29] MEDS: PANTOprazole 40 MG TAB PO SCH (07:36)
[2023-05-29] MEDS: TICAGRELOR 90 MG TAB PO SCH ×2 (08:01→21:54)
--- NOTE | 2023-05-29 09:07 | XCELERA ---
[id number] \\[email or web address]_[email or web address]\[id number]
[2023-05-29] MEDS ORDERED: OPTIRAY 320 125ml IV ONE (12:37)
--- NOTE | 2023-05-29 13:14 | CT Scan Report ---
CHEST CTA for AORTIC DISSECTION CT DOSE: 1829.41 mGy.cm HISTORY: CTA thoracic aorta; pericardial effusion TECHNIQUE: Multiaxial CT images of the chest were performed both before and after the intravenous adm inistration of contrast to evaluate the aorta. 3D/MIP images were also obtained. Sagittal and coronal reformations were also reviewed. A dose lowering technique was utilized adhering to the principles of ALARA. COMPARISON STUDY: Chest CTA 09/25/2021. FINDINGS: Noncontrast imaging through the chest shows no evidence for an intramural hematoma within t he thoracic aorta. Severe coronary artery calcifications are noted. Trace pericardial effusion. Dasha l caliber thoracic aorta with no evidence for a dissection. The central pulmonary arteries are patent . The heart is mildly enlarged. No pleural effusions. The thyroid gland enhances normally. Bilateral breast implants are noted. Stable 9 mm subcutaneous nodule within the left lateral chest wall on imag e 183 and a stable 11 mm subcutaneous nodule within the right lateral chest wall on image 132. These may represent lymph nodes. These are likely benign given the long-term stability. Limited views of th e upper abdomen demonstrate a normal liver, spleen, adrenal glands. There are few small renal hypoden se lesions. These favor cysts. Normal esophagus. Mediastinal and bilateral hilar lymphadenopathy agai n noted. This is similar to the prior study. Dominant subcarinal lymph node measures 12 mm in short a xis diameter. No acute fractures. The central airways are patent. No pneumothorax. Mosaic attenuation within the lungs suggestive of mild air trapping. Otherwise, no focal lung consolidations to suggest a pneumonia. No evidence for pulmonary edema. IMPRESSION: 1. No evidence for an aortic dissection or aneurysm. 2. Trace pericardial effusion. 3. Mosaic attenuation within the lungs suggestive of mild air trapping. Otherwise, no focal lung cons olidations to suggest a pneumonia. 4. Stable mild mediastinal and bilateral hilar lymphadenopathy. 5. Cardiomegaly and severe coronary artery calcifications, unchanged. ACT 112: Negative or not required by law. Electronically signed by: Diallo Prasad M.D. 05/29/2023 1:13 PM
[2023-05-29] MEDS: ROSUVASTATIN CALCIUM 20 MG TAB PO SCH (21:07)
--- NOTE | 2023-05-29 21:27 | Cardiology Progress Note ---
Date of Service May 29, 2023 Assessment & Plan (1) CAD (coronary artery disease): (2) S/P coronary artery stent placement: (3) Dyslipidemia: (4) Hypertension: (5) Pericardial effusion: (6) Coronary artery dissection: Plan ASSESSMENT/PLAN: 1. CAD s/p PCI: Elective PCI to the LAD with complication of coronary dissection, resulting in additional LAD PCI and circumflex PCI. No further angina. Seems to be improving daily. Continue dual antiplatelet therapy. Aspirin 81 mg daily indefinitely and would recommend chronic dual antiplatelet therapy if no contraindication. High intensity statin therapy. Continue beta- theresa. Restart ARB. 2. Pericardial effusion: Appears larger on today's echo however was also better interrogated and may not be significantly changed. CTA of the chest to ensure no extension of dissection into the aorta. Fortunately, there was no evidence of aortic dissection on CTA today. Repeat limited echo tomorrow. 3. Hypertension: Blood pressure has mostly been normotensive. Will resume losartan at lower dose of 50 mg daily. Will change metoprolol to tartrate to metoprolol succinate 50 mg daily. Both of these are lower than previous home dose. Will hold off on amlodipine for now. 4. Dyslipidemia: Continue high intensity statin therapy. 5. Disposition: Hopefully home tomorrow, pending echo findings. Close follow- up in the outpatient setting. Recommend cardiac rehab and she is agreeable. Admission and Anticipated Discharge Date Admission Date: May 27, 2023 Subjective She was seen earlier this morning and again at approximately 1720. She denied any further chest pain. She denied any significant shortness of breath. She was able to ambulate in the hallway without symptoms. She denies orthopnea, syncope, near syncope, palpitations. She was alone in her hospital room. Physical Exam Physical Exam: Gen.: No acute distress. Alert and oriented. HEENT: Anicteric sclera. Neck: No JVD. Cardiac: No ventricular heave. Regular. No ectopy. Normal S1-S2. No murmurs, rubs, or gallops. Pulmonary: Clear to auscultation bilaterally without wheezes, rales, or rhonchi. Abdomen: Soft, nontender, nondistended, with normoactive bowel sounds. No bruits noted. Extremities: 2+ radial pulses bilaterally. Right radial cath site was clean, dry, and intact without erythema or discharge. 2+ posterior tibialis pulses bilaterally. No significant edema. Lower extremity varicose veins. No c yanosis. Psychiatric: Affect appears appropriate. Results & Data Vital Signs (Past 12 Hours) Vital Signs Temp Pulse Pulse Resp BP Pulse Ox O2 Del Method 05/29/23 08:03 69 14 119/71 98 Room Air 05/29/23 07:45 71 05/29/23 04:46 36.7 C 68 17 127/67 98 Room Air 05/28/23 23:03 37.4 C 69 20 129/72 98 Room Air 05/28/23 22:59 71 Intake & Output 05/27/23 05/28/23 05/29/23 05/30/23 06:59 06:59 06:59 06:59 Intake Total 500 / 500 2049 800 / 800 Output Total 600 / 600 Balance -100 / -100 2049 800 / 800 Weight 190 lb 14.725 oz 186 lb 8.177 oz Laboratory Results Laboratory Results - last 24 hr 05/28/23 05/29/23 03:28 04:53 WBC 4.78 L RBC 4.26 Hgb 13.2 Hct 38.5 MCV 90.4 MCH 31.0 MCHC 34.3 RDW Std Deviation 44.0 RDW Coeff of Calli 13.6 Plt Count 165 MPV 9.6 Immature Gran % (Auto) 0.2 Neut % (Auto) 55.6 Lymph % (Auto) 28.9 Calhoun % (Auto) 12.8 Eos % (Auto) 1.7 Baso % (Auto) 0.8 Neut # (Auto) 2.66 Lymph # (Auto) 1.38 Calhoun # (Auto) 0.61 H Eos # (Auto) 0.08 Baso # (Auto) 0.04 Immature Gran # (Auto) 0.01 Sodium 139 Potassium 4.1 D Chloride 110 H Carbon Dioxide 21 Anion Gap 8 BUN 13 Creatinine 0.85 Est Cr Clr Drug Dosing 69.9 Est GFR ( Amer) 82.8 Est GFR (Non-Af Amer) 71.4 BUN/Creatinine Ratio 15.3 Glucose 115 H Calcium 8.6 Magnesium 2.2 Hepatitis C Ab (EIA) NON-REACTIVE Diagnostic Findings Telemetry personally reviewed: Sinus rhythm. No arrhythmia. Labs reviewed and notable for normal hemoglobin, normal potassium, normal renal function, normal magnesium Limited echo 05/29/2023: Normal LV size. EF 50 to 55%. Hypokinesis of the inferolateral wall. Not all LV segments were well-visualized. Small pericardial effusion without echocardiographic evidence of tamponade physiology. CTA chest 05/29/2023: No evidence for aortic dissection or aneurysm. Trace pericardial effusion. Medications Administered Current Inpatient Medications Aspirin (Aspirin 81 Mg Ectab) 81 mg PO QAM [facility] Stop: 06/27/23 08:59 Last Admin: 05/29/23 07:35 Dose: 81 mg Bupropion HCl (Bupropion Xl 300 Mg Tabcr) 300 mg PO QAM [facility] Stop: 06/27/23 08:59 Last Admin: 05/29/23 07:35 Dose: 300 mg Metoprolol Tartrate (Metoprolol Tartrate 25 Mg Tab) 12.5 mg PO BID [facility] Stop: 06/27/23 11:44 Last Admin: 05/29/23 21:08 Dose: 12.5 mg Nitroglycerin (Nitroglycerin Sl 0.4 Mg/Tab Tab) 0.4 mg SL Q5M PRN PRN Reason: Chest Pain Stop: 06/27/23 00:03 Ondansetron HCl (Ondansetron Inj 2 Mg/Ml 2 Ml Vial) 4 mg IV Q6H PRN PRN Reason: Nausea And Vomiting Stop: 06/26/23 11:54 Pantoprazole Sodium (Pantoprazole 40 Mg Tab) 40 mg PO DAILY [facility] Stop: 06/27/23 08:59 Last Admin: 05/29/23 07:36 Dose: 40 mg Rosuvastatin Calcium (Rosuvastatin Calcium 20 Mg Tab) 40 mg PO HS [facility] Stop: 06/26/23 20:59 Last Admin: 05/29/23 21:07 Dose: 40 mg Ticagrelor (Ticagrelor 90 Mg Tab) 90 mg PO BID [facility] Stop: 06/27/23 00:00 Last Admin: 05/29/23 08:01 Dose: 90 mg PG Care Time/CCT Total # of Minutes Spent Total Time Spent with Patient: Total time spent is greater than 50% in coordination of care (as documented) at patient's floor/unit and/or counseling patient: Coding Level of Care Code 28238 SUB INP/OBS CARE 3/50MIN Diagnoses CAD (coronary artery disease) I25.10 S/P coronary artery stent placement Z95.5 Dyslipidemia E78.5 Hypertension I10 Hypertension type: unspecified Pericardial effusion I31.39 Coronary artery dissection I25.42 (4) Hypertension Hypertension type: unspecified Qualified Code(s): I10 - Essential (primary) hypertension
--- NOTE | 2023-05-30 06:17 | Electrocardiogram Report ---
Test Reason : Blood Pressure : / mmHG Vent. Rate : 053 BPM Atrial Rate : 053 BPM P-R Int : 154 ms QRS Dur : 096 ms QT Int : 470 ms P-R-T Axes : 052 020 044 degrees QTc Int : 441 ms Sinus bradycardia Otherwise normal ECG When compared with ECG of 12-SEP-2021 16:11, No significant change was found Confirmed by Jose Martin Delcid ([id number]) on 05/30/2023 6:17:33 AM Referred By: Jose Martin Delcid Confirmed By:Jose Martin Delcid
[2023-05-30] MEDS: buPROPion XL 300 MG TABCR PO SCH (07:57)
[2023-05-30] MEDS: TICAGRELOR 90 MG TAB PO SCH (07:58)
[2023-05-30] MEDS: ASPIRIN 81 MG ECTAB PO SCH (07:58)
[2023-05-30] MEDS: PANTOprazole 40 MG TAB PO SCH (07:58)
[2023-05-30] MEDS ORDERED: METOPROLOL SUCC 50MG EXT REL TAB PO SCH (09:00)
[2023-05-30] MEDS ORDERED: LOSARTAN POTASSIUM 50 MG TAB PO SCH (09:00)
[2023-05-30] MEDS ORDERED: TICAGRELOR 90 MG HOME PACK PO STA (09:37)
[2023-05-30] MEDS ORDERED: FUROSEMIDE 20 MG TAB PO ONE (09:41)
--- NOTE | 2023-05-30 09:45 | Discharge Summary ---
Date of Service May 30, 2023 Admission HPI Per Admitting Provider Ms Rubi is a pleasant 68-year-old female with a history significant for CAD s/p OM PCI, dyslipidemia, and hypertension. She was hospitalized on 09/11/2021 with substernal burning sensation with exertion. It radiated down her right arm and there was associated nausea and lightheadedness. Troponin was slightly elevated at 0.09. She underwent cardiac catheterization demonstrating CAD and underwent PCI of OM2. She has had the following studies/procedures: 1. Nuclear stress 09/16/2018: Negative at 85% MPHR. Negative exercise ECG 85% MPHR. EF 72%. Normal wall motion. No chest pain. 7 minutes 42 seconds Ion protocol. 2. PFTs 03/10/2019: Normal spirometry, lung volumes, and DLCO. 3. Stress echo 03/05/2019: Negative stress echo and ECG 87% MPHR. No chest pain. 6 minutes 40 seconds Ion protocol. EF 55-60%. Normal wall motion and systolic function. No LVH. No significant valvular abnormalities. 4. Event Monitory 04/14/19 - 05/13/19: Sinus rhythm. No arrhythmia. No reported symptoms. 5. Echo 09/11/2021 [facility]: Normal LV size, wall motion, systolic function. EF 55-60%. No significant valvular abnormalities. 6. Cardiac catheterization 09/12/2021 [facility]: Mid LAD 30-40%. Distal LAD long 70% (small caliber vessel distally). D1 proximal 70%. OM1 diffuse proximal and mid 20%. OM2 proximal 90-95%. Dominant RCA. Early mid RCA 100%. PDA and PL fill via [id number] collaterals. LVEDP 5. No . Underwent PCI of OM2 with 2.25 x 18 mm elle SHONDA, post dilated 2.5 NC. 7. Left lower extremity venous Doppler 12/17/2022: No DVT. 8. Echo 01/03/2023 [facility]: Normal LV size, wall motion, systolic function. EF 60-65%. No LVH. No significant valvular abnormalities. 9. Venous insufficiency study 03/27/2023: [facility]: Right GSV varices with reflux. Left GSV varices with reflux. Left AASV reflux. Deep system reflux in bilateral CFV only. Absent bilateral GSV. She presented as an outpatient for elective cardiac catheterization on 05/27/2023. She was found to have distal LAD severe CAD. She underwent PCI of her mid and distal LAD. The procedure was completed before the radial sheath was removed, she developed crushing chest discomfort. Angiography was repeated and she was noted to have ostial/proximal LAD dissection resulting in occluded ostial LAD with MARION 0 flow. IVUS was performed and she underwent ostial to mid LAD PCI with 3 x 34 mm Elle SHONDA. Following stent deployment, angiography demonstrated LAD MARION-3 flow but compromised flow within the circumflex, thought to be due to dissection. Ostial/proximal circumflex underwent PCI with 2.75 x 15 mm Hardy SHONDA. This resulted in MARION I2 flow with minimal flow in the mid circumflex between the proximal stent and previous OM 2 stent. Mid circumflex underwent PCI with 2.75 x 22 mm Hardy SHONDA, overlapping proximal aspect of previous OM 2 stent in the distal aspect of the proximal circumflex stent. This resulted in MARION-3 flow into the OM1, OM 2, and distal AV groove circumflex. IVUS was repeated, demonstrating well-expanded stents and residual moderate ostial circumflex disease and questionable distal left main small dissection flap. Angiography demonstrated apparent thrombus in the mid LAD stents. Post dilation of the mid LAD stents performed with 3 mm NC balloon and she was placed on IV Integrilin. She remained hemodynamically and electrically stable but became hypoxic and was administered intravenous Lasix and placed on nonrebreather. She had an episode of nausea/vomiting x 1. Oxygenation improved at the completion of the procedure. Postprocedure LVEDP was 18 mmHg. She was admitted to ICU. Discharge Data Consultations 05/27/23 12:09 Consult Equipment Planner Routine Procedures Performed Operation Date: 05/27/23 12:00 <No data on this case meets the specified criteria> Diagnostic right heart, left heart, coronary angiography: Coronary angiography: 1. Left main: No significant CAD. 2. Left anterior descending: Mid LAD 30 to 40%. Early distal LAD 70 to 80%. MARION-3 flow. Small D1 ostial/proximal 50 to 60%. Small D2 without significant CAD. 3. Circumflex: No significant CAD within the circumflex. OM1 mid 20%. OM 2 luminal irregularities proximally but patent stent. 4. Right coronary artery: Dominant RCA. Mid RCA 100%. Faint to faint right to right collaterals. Left to right collaterals. Left heart catheterization: 1. Left ventriculography was not performed. 2. No aortic stenosis. Peak to peak gradient across the aortic valve is 0. 3. Mildly elevated LVEDP; 17 mmHg. Right heart catheterization: 1. Pulmonary capillary wedge pressure: V wave 22; mean 15 mmHg 2. Pulmonary artery pressure: 43/16 with mean 25 mmHg 3. Right ventricular pressure: 42/5; RVEDP 16 mmHg 4. Right atrial pressure: A-wave 15; V wave 13; mean 7 mmHg 5. Transpulmonary gradient: 10 mmHg Moderate sedation: 1. Sedation start time: 8:18 AM 2. Sedation end time: 8:49 AM Procedural notes: 1. There was difficulty in advancing the right heart catheter (6 Haitian). Venography demonstrated tortuosity. A 5 Haitian right heart catheter was easily advanced. 2. Coronary angiography was performed via the right radial artery without known complication with 5 Haitian JL 3.5 and JR4 diagnostic catheters. Impression: 1. Severe LAD CAD. 2. Patent OM2 stent. 3. Chronically occluded RCA with left to left and faint right to right collaterals. 4. Otherwise, nonobstructive CAD. 5. Mildly elevated filling pressures. 6. Mild pulmonary hypertension. 7. No aortic stenosis. PCI: -- PCI -- Antithrombotic therapy: Heparin, ticagrelor, Integrilin Procedure: Left main cannulated with EBU 3.5 guide Pre-procedure flow MARION 3 Whisper wire passed across lesion into distal vessel Distal LAD lesion predilated with 2.0 compliant balloon Dilated lesion stented with 2.25 x 22 mm Elle drug-eluting stent Stent post-dilated with 2.5 noncompliant balloon IC vasodilators administered for spasm Patient noted to have moderate focal mid LAD stenosis difficult for equipment to pass to distal LAD decision during PCI and decision to place second SHONDA. 2.75 x 12 mm Hardy placed to mid LAD. Postdilated with stent balloon. Post procedure MARION 3 flow, stents well expanded with minimal residual stenosis and no apparent cardiac complications. Minutes after completion of procedure before radial sheath removed patient developed severe crushing chest pain. No ST changes on monitor. Repeat angiography revealed acutely occluded ostial LAD with MARION 0 flow. Left main recannulated with EBU 3.5 guide Eventually able to pass spray pilot 50 wire into true lumen and across prior stents Farley IVUS catheter placed to mid LAD. Pullback revealed widely patent stents with dissection in proximal LAD extending back to ostium. LAD stented with 3.0 x 34 mm Elle drug-eluting stent extending back to ostium. Stent postdilated with stent balloon. Post stent deployment angiography revealed MARION-3 flow in LAD but now compromised flow in circumflex thought secondary to dissection. Eventually able to pass BMW wire into true lumen and across stent in OM 2 OTW balloon passed to OM 2 and confirmed true lumen position. Proximal to mid circumflex predilated with 2.5 balloon, minimal flow reestablished. Unable to pass 2.75 x 22 mm Hardy SHONDA across angulated mid circumflex Telescope support catheter placed and mid LAD predilated with 3.0 balloon Wire exchanged for [employer] support wire Eventually able to pass 2.75 x 15 mm Elle to ostial/proximal circumflex. Stent postdilated with stent balloon. Following send appointment MARION I-II flow with minimal flow in mid circumflex between proximal stent and OM2 stent By 50 wire navigated into medium OM1 Mid circumflex predilated with 2.5 balloon 2.75 x 22 mm Elle SHONDA placed to mid circumflex overlapping proximal aspect of old OM 2 stent and distal aspect of D2 proximal circumflex stent Stents well-expanded with MARION-3 flow into OM1, OM 2 and distal AV groove circumflex Repeat IVUS of circumflex showed well-expanded stents with residual moderate ostial circumflex disease and questionable distal left main small dissection flap Initial angiography noted to have apparent thrombus in mid LAD stents LAD rewired with spray pilot 50 Mid LAD stents postdilated with 3.0 NC balloon and started on IV Integrilin. Post inflation thrombus improved. Final result showed MARION-3 flow in LAD, circumflex with well-expanded stents and questionable minimal residual stenosis at LAD ostium. During procedure patient hemodynamically and electrically stable. Became increasingly hypoxic requiring IV Lasix x 1 and nonrebreather. Nausea/vomiting x 1 without clear aspiration. O2 requirements improved at completion of procedure. Postprocedure LVEDP 18 Arterial Closure: TR band Summary: 1. PCI of mid and distal LAD with 2 nonoverlapping SHONDA (2.75 x 12, 2.25 x 22 mm Elle) 2. Post procedure chest pain due to occlusive LAD ostial dissection (thought secondary to guide) 3. Occlusive proximal circumflex dissection during repair of LAD dissection 4. Acute hypoxic respiratory failure 5. PCI of ostial LAD dissection with additional SHONDA (3.0 x 34 mm Hardy) from ostium to prior mid stent. 6. PCI of proximal circumflex dissection with 2 additional SHONDA (2.75 x 15, 2.75 x 22 mm Hardy) extending to prior OM2 stent. Hospital Course (1) CAD (coronary artery disease): (2) S/P coronary artery stent placement: (3) Dyslipidemia: (4) Hypertension: (5) Pericardial effusion: (6) Coronary artery dissection: Plan ASSESSMENT/PLAN: 1. CAD s/p PCI: Elective PCI to the LAD x 2 with complication of coronary dissection, resulting in additional LAD PCI (x1) and circumflex PCI (x2). No further angina. Continue dual antiplatelet therapy. Aspirin 81 mg daily indefinitely and would recommend chronic dual antiplatelet therapy if no contraindication. High intensity statin therapy. Continue beta-theresa and ARB. 2. Pericardial effusion: Pericardial effusion is very small. Asymptomatic. No evidence for enlarging effusion today and CTA did not demonstrate any significant aortic finding such as dissection. No specific treatment warranted. Can repeat limited echo in the outpatient setting. 3. Hypertension: Blood pressure has mostly been normotensive but intermittently mildly hypertensive in the past day. Resuming metoprolol succinate 50 mg daily and losartan 50 mg daily. Would consider increasing losartan to 100 mg daily and her follow-up clinic appointment and potentially increasing metoprolol succinate to 100 mg daily to her previous doses. Will hold off on amlodipine for now. 4. Dyslipidemia: Continue high intensity statin therapy. 5. Cough: Intermittent cough, Possibly with while supine but otherwise does not appear hypervolemic on examination. Will give Lasix 20 mg p.o. x 1 now and Lasix 20 mg once daily as needed at home. Recommended that she weigh herself daily and maintain a low-sodium diet. 6. Disposition: Stable for discharge. Follow-up scheduled in the cardiology office in 1 week with Vianca Pham PA-C. Her hospital course was personally discussed today with Vianca. Coding Level of Care Code 85346 INP/OBS DISCH >30 MIN Diagnoses CAD (coronary artery disease) I25.10 S/P coronary artery stent placement Z95.5 Dyslipidemia E78.5 Hypertension I10 Hypertension type: unspecified Pericardial effusion I31.39 Coronary artery dissection I25.42 Time Spent (min) 35
--- NOTE | 2023-05-30 15:04 | XCELERA ---
[id number]
--- NOTE | 2023-05-30 18:24 | Electrocardiogram Report ---
Test Reason : Blood Pressure : / mmHG Vent. Rate : 063 BPM Atrial Rate : 063 BPM P-R Int : 134 ms QRS Dur : 092 ms QT Int : 412 ms P-R-T Axes : 067 047 062 degrees QTc Int : 421 ms Normal sinus rhythm Possible Left atrial enlargement Nonspecific ST and T wave abnormality Abnormal ECG When compared with ECG of 27-MAY-2023 12:08, No significant change was found Confirmed by Jose Martin Delcid ([id number]) on 05/30/2023 6:23:34 PM Referred By: Jose Martin Delcid Confirmed By:Jose Martin Delcid
--- NOTE | 2023-05-30 18:33 | Electrocardiogram Report ---
Test Reason : Blood Pressure : / mmHG Vent. Rate : 061 BPM Atrial Rate : 061 BPM P-R Int : 132 ms QRS Dur : 092 ms QT Int : 418 ms P-R-T Axes : 058 046 067 degrees QTc Int : 420 ms Normal sinus rhythm Possible Left atrial enlargement Nonspecific T wave abnormality Abnormal ECG When compared with ECG of 27-MAY-2023 23:44, No significant change was found Confirmed by Jose Martin Delcid ([id number]) on 05/30/2023 6:32:49 PM Referred By: Jose Martin Delcid Confirmed By:Jose Martin Delcid
--- NOTE | 2023-05-30 21:59 | Electrocardiogram Report ---
Test Reason : Blood Pressure : / mmHG Vent. Rate : 071 BPM Atrial Rate : 071 BPM P-R Int : 136 ms QRS Dur : 088 ms QT Int : 432 ms P-R-T Axes : 048 012 177 degrees QTc Int : 469 ms Normal sinus rhythm Abnormal ECG When compared with ECG of 28-MAY-2023 06:22, T wave inversion now evident in Anterolateral leads Confirmed by Jose Martin Delcid ([id number]) on 05/30/2023 9:58:40 PM Referred By: Jose Martin Delcid Confirmed By:Jose Martin Delcid
== END 2023-05-30 12:13 | disposition home or self-care (01) | DRG 321 ==
LOC: CC 07:06 → 1E 12:09

== ENCOUNTER 2024-06-14 06:34 | Observation (INO) ==
--- NOTE | 2024-05-10 14:44 | PAT Medication Instructions ---
Medication Instructions Date of Service May 10, 2024 Home Medications Medication Instructions Recorded nitroglycerin 0.4 mg sublingual 0.4 mg sublingual Q5M PRN chest 05/30/23 tablet (Nitrostat) pain #25 tabs losartan 100 mg tablet 100 mg PO QAM #90 tabs 12/15/23 bupropion HCl 300 mg 24 hr tablet, 300 mg PO QAM #90 tabs 12/30/23 extended release (Wellbutrin XL) rosuvastatin 40 mg tablet (Crestor) 40 mg PO HS #90 tabs 03/10/24 estradiol 0.01% (0.1 mg/gram) 0.25 appful vaginal DAILY #42.5 04/14/24 vaginal cream grams semaglutide (weight loss) 1.7 1.7 mg (0.75 mL) subcut Q7D #3 mL 04/19/24 mg/0.75 mL subcutaneous pen injector metoprolol succinate 50 mg 50 mg PO HS #90 tabs 05/10/24 tablet,extended release 24 hr pantoprazole 40 mg tablet,delayed 40 mg PO QAM #90 tabs 05/10/24 release aspirin 81 mg capsule 81 mg PO QAM nitroglycerin 0.4 mg sublingual tablet (Nitrostat) 0.4 mg sublingual Q5M PRN chest pain losartan 100 mg tablet 100 mg PO QAM bupropion HCl 300 mg 24 hr tablet, extended release (Wellbutrin XL) 300 mg PO QAM rosuvastatin 40 mg tablet (Crestor) 40 mg PO HS clopidogrel 75 mg tablet 75 mg PO HS estradiol 0.01% (0.1 mg/gram) vaginal cream 0.25 appful vaginal DAILY semaglutide (weight loss) 1.7 mg/0.75 mL subcutaneous pen injector 1.7 mg (0.75 mL) subcut Q7D amlodipine 5 mg tablet 5 mg PO QAM metoprolol succinate 50 mg tablet,extended release 24 hr 50 mg PO HS pantoprazole 40 mg tablet,delayed release 40 mg PO QAM Continue as directed nitroglycerin 0.4 mg sublingual tablet (Nitrostat) 0.4 mg sublingual Q5M PRN chest pain (if needed) ASK your prescriber and surgeon aspirin 81 mg capsule 81 mg PO QAM clopidogrel 75 mg tablet 75 mg PO HS (From anesthesia perspective, clopidogrel/Plavix needs to be stopped 7 days before surgery. Please check if okay with doctor that prescribes this to you) STOP 7 days prior to surgery (if okay with prescriber) semaglutide (weight loss) 1.7 mg/0.75 mL subcutaneous pen injector 1.7 mg (0.75 mL) subcut Q7D STOP taking 24 hours before surgery estradiol 0.01% (0.1 mg/gram) vaginal cream 0.25 appful vaginal DAILY DO NOT take the morning of surgery losartan 100 mg tablet 100 mg PO QAM Take morning of surgery With a small sip of water, OTHERWISE NOTHING TO EAT OR DRINK AFTER MIDNIGHT: bupropion HCl 300 mg 24 hr tablet, extended release (Wellbutrin XL) 300 mg PO QAM amlodipine 5 mg tablet 5 mg PO QAM pantoprazole 40 mg tablet,delayed release 40 mg PO QAM Take evening before surgery rosuvastatin 40 mg tablet (Crestor) 40 mg PO HS metoprolol succinate 50 mg tablet,extended release 24 hr 50 mg PO HS Other Notes If you have any questions please call us at [phone] or [phone] or [phone] or [phone]
--- NOTE | 2024-05-18 11:42 | Anesthesiology Consultation ---
Date of Service May 18, 2024 Assessment & Plan (1) Encounter for pre-operative examination: - Infectious disease screening: Per assessment on 05/18/24- No known recent infectious disease contacts or current infectious disease symptoms. - Outpatient joint assessment: Pt currently scheduled for inpatient pathway. If surgeon requests review for outpatient joint pathway, patient is not recommended candidate for outpatient joint program from anesthesia standpoint based on available information. - Semaglutide instructions: Patient informed by PAT to stop 7 days prior to surgery- voiced understanding. DOS 06/14/23. Advised last dose to be 06/04/24. - Cardiology visit (02/20/24): "CAD s/p LAD x 3, Cx x 2, OM2 PCI: Occluded RCA with [id number] collaterals. LAD PCI complicated by LM/LAD dissection and emergent LAD and Cx PCI. She had described previously atypical right-sided chest pain but also chest pain similar to prior angina, following her multivessel PCI. Chest pain significantly improved and now resolved. Did not tolerate nitrate therapy due to headache. Ranexa was unaffordable. Continue beta-theresa and calcium channel theresa. Had been referred to [facility] to discuss and consider other treatment options, including repeat coronary angiography however chest pain much improved now. PET imaging suggested RCA ischemia at [facility] on 02/18/2024. She has not yet heard from her [facility] provider. She has known occluded RCA. Continue aspirin 81 mg daily. Now on Plavix as per [facility] due to easy bruising; [facility] discontinued prasugrel. Continue dual antiplatelet therapy given multiple stents, including overlapping stents.. Chest pain resolved. Beta-theresa and amlodipine. She could not afford ranolazine. Nitrate therapy caused headache.. She appears euvolemic. Can continue Lasix 20 mg once daily as needed, but has not required Lasix recently. When taking 20 mg of Lasix daily, renal function mildly worsened. Renal function still mildly abnormal.Has been seen by vascular which has felt no benefit from additional venous ablation and consideration of lymphedema PT if edema is persistently bothersome. No significant pitting edema today. Compression stockings have helped with edema. Continue to wear compression stockings. Negative Doppler for left leg DVT in past. Keep feet elevated while sitting. She reports a history of venous ablation of her bilateral legs many years ago, with more extensive work involving the left leg per her report. She expressed interest in reducing amlodipine. Can reduce amlodipine to 5 mg daily.. Blood pressure is excellent. Reducing amlodipine due to positional dizziness/lightheadedness and her concerned that it may be contributing to edema.. Dyspnea on exertion: She appears euvolemic. Has not improved with adjustment in her antianginal regimen. Had mild air trapping on CT imaging in May 2023. Unremarkable PFTs. [facility] agrees that dyspnea on exertion is not clearly cardiac in nature. Has abnormal PET perfusion imaging however known occluded RCA which is chronic. Pulmonary referral placed to see if there is any pulmonary issue that can be improved upon to improve her quality of life.. Possible claudication: Given known CAD and lower extremity symptoms, arterial duplex ordered.. Follow-up in 6 months.." > LE Arterial duplex 03/02/24- no evidence of hemodynamically significant arterial occlusive disease b/l on duplex. - Positive antibodies: Received call from [place] with blood bank that patient will need to come in for further labs on 06/12 before noon in order to have appropriate blood products available for them perioperatively. Spoke with patient who voiced understanding and indicates she will come in as requested. - Complex cardiac hx: CAD s/p LAD x 3, Cx x 2, OM2 PCI: Occluded RCA with [id number] collaterals. LAD PCI complicated by LM/LAD dissection and emergent LAD and Cx PCI. [place] [facility] [place] (workload message sent). Awaiting cardiology workload message response regarding optimization/Plavix instructions. Patient otherwise acceptable risk for surgery. Chart Review Chart Review: Pending: Refer to Additional Notes / Consult section and Patient seen in Pre Admission Testing Consults Requested cardiac Teaching & Discussion Pre-Anesthesia Teaching/Discussion Notes: Instructed NPO after midnight before surgery,except medications with 15 cc of water. Medication instructions provided according to the PAT guidelines. History Surgery Operation Date: 06/14/24 10:00 Proposed Procedures p Right Total Knee Arthroplasty - Ashok Walters DO Height/Weight Height: 5 ft 5 in Weight: 73.6 kg Allergies Allergy/AdvReac Type Severity Reaction Status Date / Time No Known Drug Allergies Allergy Unknown Verified 05/10/24 09:44 Medications Home Medications Medication Instructions Recorded Confirmed Last Taken aspirin 81 mg capsule 81 mg PO QAM 04/30/22 05/10/24 05/27/23 nitroglycerin 0.4 mg sublingual 0.4 mg sublingual Q5M PRN chest 05/30/23 05/10/24 Unknown tablet (Nitrostat) pain #25 tabs losartan 100 mg tablet 100 mg PO QAM #90 tabs 12/15/23 05/10/24 Unknown bupropion HCl 300 mg 24 hr tablet, 300 mg PO QAM #90 tabs 12/30/23 05/10/24 Unknown extended release (Wellbutrin XL) rosuvastatin 40 mg tablet (Crestor) 40 mg PO HS #90 tabs 03/10/24 05/10/24 Unknown clopidogrel 75 mg tablet 75 mg PO HS 04/14/24 05/10/24 Unknown estradiol 0.01% (0.1 mg/gram) 0.25 appful vaginal DAILY #42.5 04/14/24 05/10/24 Unknown vaginal cream grams amlodipine 5 mg tablet 5 mg PO QAM 05/10/24 05/10/24 Unknown metoprolol succinate 50 mg 50 mg PO HS #90 tabs 05/10/24 Unknown tablet,extended release 24 hr pantoprazole 40 mg tablet,delayed 40 mg PO QAM #90 tabs 05/10/24 Unknown release semaglutide (weight loss) 2.4 2.4 mg (0.75 mL) subcut Q7D #3 mL 05/18/24 Unknown mg/0.75 mL subcutaneous pen injector Past Medical History Medical History BMI 27.0-27.9,adult Taking weekly Semaglutide for weight loss Dyslipidemia Per records History of colon polyps Per records Osteoarthritis of right knee Metabolic syndrome GERD without esophagitis Hx of arterial dissection (05/2023) LAD PCI complicated by LM/LAD dissection and emergent LAD and Cx PC Chronic low back pain CAD (coronary artery disease) 09/2021- stent x1 05/2023- stents x5 > LAD PCI complicated by LM/LAD dissection and emergent LAD and Cx PCI Follows with [facility] cardio Allergic rhinitis with postnasal drip Achilles tendinitis CKD (chronic kidney disease) Hx of varicose veins Benign essential hypertension Osteoporosis Depression with anxiety Hx of myocardial infarction Hx of squamous cell carcinoma Hx of basal cell carcinoma Exercise / Class Metabolic Activity III < 4 Walking/Shop/Light housework (one FS (No CP, + SOB)) Past Family History Family History Father , Jun 2020 Diabetes Coronary heart disease Mother Osteoporosis Coronary heart disease Sister Coronary heart disease Sarcoidosis Lung disease Other Heart disease No family history of adverse response to anesthesia Denies family history of Ovarian cancer Prostate cancer Myocardial infarction Breast cancer Lung cancer Colorectal cancer Uterine cancer Past Surgical History Surgical History Hx of heart artery stent 09/2021- stent x1 05/2023- stents x5 > LAD PCI complicated by LM/LAD dissection and emergent LAD and Cx PCI Hx of varicose vein ligation both les S/P right knee arthroscopy (05/2022) History of cardiac cath 2021- stent x1 05/2023- stents x 5 ([facility]) > [place] during cath/ had torn vessel- ICU x 4 days History of squamous cell carcinoma excision History of basal cell carcinoma (BCC) excision History of repair of rotator cuff Left H/O abdominoplasty S/P tubal ligation History of colonoscopy History of bunionectomy left foot History of section x2 Hx of breast implants, bilateral Past Anesthesia History No Hx of Anesthesia Complications and No Family Hx of Anesthesia Complications History of PONV No Hx of PONV and No Hx of Motion Sickness Social History Smoking Status: Never smoker Do You Dip or Chew Tobacco: No Hx Alcohol Use: Yes Alcohol type: hard liquor alcohol intake frequency: a few times a month Hx Substance Use: No substance use type: does not use Review of Systems Patient denies chest pain, shortness of breath, dyspnea on exertion, fever, chills, cough, wheezing, palpitations. Physical Exam Vital Signs BP 110/77 P 69 TEMP 98.1 SP02 98%RA RESP 18 Physical Full cervical extension range of motion. Full TMJ range of motion. TMD 3 finger breaths Mallampati Score I Dentition: missing sides, in process of obtaining implant (not being completed until 08/2024) Lungs: clear throughout to auscultation Cardiac: regular rate and rhythm, no murmurs noted Spine: normal Carotid arteries: negative bruit Extremities: no LE edema Lab Results Anesthesia Preop Results Results Anesthesia Widget: WBC 4.65 K/ul (4.8-10.8) L 05/18/24 Hgb 12.3 g/dl (12.0-16.0) 05/18/24 Hct 36.4 % (37.0-47.0) L 05/18/24 Plt 160 K/uL (130-400) 05/18/24 Na 139 mmol/L (136-145) 05/18/24 K 4.5 mmol/L (3.5-5.1) 05/18/24 Cl 106 mmol/L (98-107) 05/18/24 CO2 26 mmol/L (21-32) 05/18/24 BUN 15 mg/dl (6-23) 05/18/24 Creat 1.26 mg/dl (0.6-1.2) H 05/18/24 Glucose Level 91 mg/dl (70-99(Fasting)) 05/18/24 PT 10.9 Seconds (9.0-12.0) 05/18/24 PTT 25 Seconds (21-31) 05/18/24 INR 1.0 (0.9-1.1) 05/18/24 Blood Type B Positive 05/18/24 Antibody Screen POSITIVE A 05/18/24 Testing Electrocardiogram Date: 05/18/24 NSR at 68bpm. Low voltage QRS. Chest X-Ray Date: 12/09/23 FINDINGS: No lines and tubes are seen. The cardiomediastinal silhouette is normal. The lungs are clear. No evidence of pleural effusion or pneumothorax. IMPRESSION: No acute abnormalities and in particular no radiographic evidence of pneumonia. Echocardiogram Date: 02/18/24 EF 67 +/- 5%.Technically difficult exam due to body habitus and breast implants.Wall motion: All scored segments are normal. No significant valvular disease. Stress Test Date: 02/18/24 No evidence of scarred myocardium. There is severe ischemia in the territory of the RCA.LV systolic function is normal. There is an indeterminant risk scan due to area of scar/ischemia. There is a moderate perfusion defect in the entire inferior wall. There is a mild perfusion defect in the basal inferior septal segment. All remaining segments show normal perfusion. Cardiac Catheterization Date: 05/27/23 Summary: 1. PCI of mid and distal LAD with 2 nonoverlapping SHONDA (2.75 x 12, 2.25 x 22 mm Roni) 2. Post procedure chest pain due to occlusive LAD ostial dissection (thought secondary to guide) 3. Occlusive proximal circumflex dissection during repair of LAD dissection 4. Acute hypoxic respiratory failure 5. PCI of ostial LAD dissection with additional SHONDA (3.0 x 34 mm Blomkest) from ostium to prior mid stent. 6. PCI of proximal circumflex dissection with 2 additional SHONDA (2.75 x 15, 2.75 x 22 mm Roni) extending to prior OM2 stent. Recommendations: PCI without planned CABG.
--- NOTE | 2024-06-14 06:28 | History & Physical Bridge Note ---
Date of Service June 14, 2024 History & Physical Bridge Note I have examined the patient, reviewed the History & Physical and in the interval since the performance of the History & Physical I have noted the following changes of clinical significance: no changes noted
[~2024-06-14 06:34] MED LIST changes: +BUPIVACAINE 0.5 % 5 MG/1 ML PF 10ML VIAL ONE; +GLYCOPYRROLATE 0.2 MG/ML VIAL ONE; +KETAMINE HCL 10MG/ML SYR ONE; +LIDOCAINE 2% 2 ML VIAL/AMP(20MG/ML) INFIL ONE; +MIDAZOLAM HCL 1 MG/ML 2ML VIAL ONE; +ONDANSETRON INJ 2 MG/ML 2 ML VIAL ONE; -PHEN37.585 PO; +PROPOFOL IV EMULSION 10 MG/ML 20 ML VIAL IV ONE; +ROPIVACAINE 0.5% 5 MG/ML 30 ML VIAL ONE
[2024-06-14] MEDS: GABAPENTIN 300 MG CAP PO SCH (07:07)
[2024-06-14] MEDS: FAMOTIDINE 20 MG TAB PO SCH (07:07)
[2024-06-14] MEDS: LR 500ML BOLUS, THEN 15ML/HR IV SCH (07:07)
[2024-06-14] MEDS: LR 60ML/HR IV SCH (07:07)
[2024-06-14] MEDS: ACETAMINOPHEN 500 MG TAB PO SCH ×2 (07:07→14:40)
[2024-06-14] MEDS: dexAMETHasone**PF** 10 MG/ML VIAL IV SCH (07:15)
[2024-06-14] MEDS ORDERED: ONDANSETRON INJ 2 MG/ML 2 ML VIAL IV PRN ×2 (07:35→11:39)
[2024-06-14] MEDS ORDERED: ePHEDrine sulfate 50 MG/ML AMP IV PRN (07:35)
[2024-06-14] MEDS ORDERED: ATROPINE SULFATE 0.1 MG/ML 10ML SYR IV PRN (07:35)
[2024-06-14] MEDS ORDERED: fentaNYL citrate PF 100 MCG/2 ML VIAL IV PRN (07:35)
[2024-06-14] MEDS: TRANEXAMIC ACID 1,000 MG **IV Pre-op IV SCH (07:38)
[2024-06-14] MEDS: ceFAZolin 2000MG 2,000 MG/15 ML SYR IV SCH (08:00)
[2024-06-14] MEDS: ROPIV 0.5% 246mg, Ketorolac 30mg, EPINEPHrine 0.5mg in NSS INFIL SCH (08:28)
[2024-06-14] MEDS: ORTHO JOINT ANESTHETIC ONE (08:29)
[2024-06-14] MEDS: TRANEXAMIC ACID 1,000 MG **IV Intra-op IV SCH (08:45)
--- NOTE | 2024-06-14 09:05 | Operative Report ---
PG Post Operative Report Pre & Post Diagnosis Operation Date: 06/14/24 08:00 Pre-Op Diagnosis: Right Knee Osteoarthritis Post-Op Diagnosis: Right Knee Osteoarthritis I identified the patient and participated in the time-out.: Yes Procedure Operation Date: 06/14/24 08:00 Actual Procedures p Right Total Knee Arthroplasty(Right) - Ashok Walters DO Surgeon Ashok Walters DO Residential Electrician Sharif Jackman PA-C Estimated Blood Loss 30 Findings Consistent with Post-Op Diagnosis Specimens Right femoral and tibial bone Description of Procedure Implants used: I used a Bdudy Persona total knee arthroplasty system with a size 5 standard femur, D tibia, 31 oval patella, and a size 12 medial congruent polyethylene bearing. All components were cemented in place with Biomet cement. Mandi arrived [facility] for the above procedure. She was seen in the preoperative holding area and the operative extremity was identified and signed. She was given a preoperative antibiotic, TXA, a spinal anesthetic and an adductor nerve block. She was taken back to the operating room and laid on the table in supine position. She was given basic sedation. The operative knee was then prepped and draped in sterile fashion. A timeout was done, and the patient and the operative extremity was properly identified. A midline incision was made directly over the patella. Dissection was taken down to the extensor mechanism. A subvastus arthrotomy was used. The medial retinaculum was released and the fat pad was mostly excised. The knee was flexed and the ACL, PCL, and meniscus were removed. A drill was sent down the center of the femoral canal followed by an intramedullary shruthi. Off that shruthi a distal femoral cutting block was placed. 9 mm was resected off the distal femur at 5 of valgus. A posterior referencing AP sizing guide was then placed on the distal femur. The femur measured to be a size 5. 2 drill holes were placed in 3 of external rotation. A 4-in-1 cutting block was then impacted into place. Anterior, posterior, and chamfer cuts were then made. The proximal tibia was then exposed. An external tibial alignment guide was placed. A tibial cut guide was then anchored in place and the proximal tibia was then resected. The posterior aspect of the knee was then opened up and any additional meniscus fragments and osteophytes were removed. The tibia measured to be a size D. The tibial plate was then placed in the appropriate rotation and the tibia was drilled and punched. Trial components were then placed. I used a size 12 medial congruent polyethylene insert. The knee was brought through a full range of motion and felt to be stable. The peg holes for the femoral component were then drilled. The patella was then everted and 9 mm was resected off the posterior aspect of the patella. The patella measured to be a size 31 oval. 3 peg holes were then drilled. A trial patella was placed. The knee was once again brought through a full range of motion and felt to be stable. Trial components were then removed. The surrounding soft tissues were injected with 100 cc of an orthopedic pain control cocktail. All components were then cemented into place with Biomet cement. The final polyethylene insert was then snapped into place. Once cement was dry the tourniquet was deflated. Hemostasis was obtained. A dilute betadyne lavage was then done for 3 minutes. The joint was then irrigated with normal saline solution. The subvastus arthrotomy was then closed with #1 Vicryl suture. The skin was closed with 2-0 Vicryl, 3-0V lock suture, and gretchen. A soft compressive dressing was placed. She was then transferred to a hospital bed and taken to the postanesthesia care unit in stable condition. She tolerated the procedure well. Sharif Jackman PA-C, was present for the entire procedure. He was critical for patient positioning, prepping, draping, retraction exposure, wound closure and application of sterile dressing. I attest to the content of the Intraoperative Record and any orders documented therein. Any exceptions are noted below.
--- NOTE | 2024-06-14 10:14 | XRay Report ---
XR knee RT 1 or 2V routine CLINICAL HISTORY: Surgical Post Op TECHNIQUE: 2 views of the right knee were obtained. Comparison: Comparison is made to knee radiograph 07/17/2021 FINDINGS: Patient is status post total knee arthroplasty with expected postsurgical changes including soft tiss ue swelling and subcutaneous emphysema. No periarticular lucency or hardware fracture is seen. IMPRESSION: Expected postoperative appearance status post placement of total knee arthroplasty. ACT 112: Negative or not required by law. Electronically signed by: Ezequiel May M.D. 06/14/2024 10:12 AM
[2024-06-14 11:39] VITALS: RESP 16
[2024-06-14] MEDS ORDERED: NALOXONE HCL 0.4 MG/1 ML VIAL/CARP IV PRN (11:39)
[2024-06-14] MEDS ORDERED: METOCLOPRAMIDE HCL INJ 5 MG/ML 2 ML VIAL IV PRN (11:39)
[2024-06-14] MEDS ORDERED: NITROGLYCERIN SL 0.4 MG/TAB TAB SL PRN (11:39)
[2024-06-14] MEDS ORDERED: MAGNESIUM HYDROXIDE SUSP 30 ML UDC PO PRN (11:39)
[2024-06-14] MEDS ORDERED: oxyCODONE HCL IR 5 MG TAB (IMMEDIATE RELEASE) PO PRN (11:39)
[2024-06-14] MEDS ORDERED: HYDROmorphone INJ 0.5 MG/0.5 ML SYR IV PRN (11:39)
[2024-06-14] MEDS ORDERED: traMADol HCL 50 MG TABLET PO PRN (11:39)
[2024-06-14] MEDS ORDERED: bisacodyL 10 MG SUPP PR PRN (11:39)
--- NOTE | 2024-06-14 11:42 | Anesthesiology Progress Note ---
Date of Service June 14, 2024 Anesthesia Post Procedure Vital Signs Vital Signs: Temp Pulse Pulse Resp BP Pulse Ox O2 Del Method 06/14/24 11:30 97.7 F 72 16 124/83 97 Room Air 06/14/24 11:20 78 18 128/81 99 Nasal Cannula 06/14/24 11:10 73 20 117/71 99 Nasal Cannula 06/14/24 11:00 97.7 F 68 26 H 122/75 99 Nasal Cannula 06/14/24 10:50 68 19 118/74 99 Nasal Cannula 06/14/24 10:40 69 22 121/71 99 Nasal Cannula 06/14/24 10:30 70 13 126/75 99 Nasal Cannula 06/14/24 10:20 69 18 122/73 98 Nasal Cannula 06/14/24 10:10 71 16 127/74 99 Nasal Cannula 06/14/24 10:00 71 20 116/73 98 Nasal Cannula 06/14/24 09:50 73 19 117/71 97 Nasal Cannula 06/14/24 09:40 77 10 L 112/70 95 Room Air 06/14/24 09:30 97.3 F L 83 15 107/70 96 Room Air 06/14/24 06:58 98.1 F 75 20 134/81 99 Room Air O2 Flow Rate 06/14/24 11:30 06/14/24 11:20 2 06/14/24 11:10 2 06/14/24 11:00 2 06/14/24 10:50 2 06/14/24 10:40 2 06/14/24 10:30 2 06/14/24 10:20 2 06/14/24 10:10 2 06/14/24 10:00 2 06/14/24 09:50 2 06/14/24 09:40 06/14/24 09:30 06/14/24 06:58 Pain Intensity Right Knee: Pain Intensity: 1 Transfer of Care Handoff Completed per policy Notes Mental Status: alert / awake / arousable and participated in evaluation Patient Amnestic to Procedure: Yes Nausea / Vomiting: adequately controlled Pain: adequately controlled Airway Patency, RR, SpO2: stable & adequate BP & HR: stable & adequate Hydration State: stable & adequate Neuraxial Anesthesia: was administered and sensory block is resolving Anesthetic Complications: no major complications apparent and Pt Satisfied with anesthetic care
[2024-06-14] MEDS: KETOROLAC TROMETHAMINE 15 MG/ML VIAL IV SCH (11:59)
[2024-06-14] MEDS: ceFAZolin 1000MG 1,000 MG/7.5 ML SYR IV SCH (15:54)
[2024-06-14] MEDS: METOPROLOL SUCC 50MG EXT REL TAB PO SCH (20:57)
[2024-06-14] MEDS: SENNA 8.6 MG TAB PO SCH (20:58)
[2024-06-14] MEDS: DOCUSATE SODIUM 100 MG CAP PO SCH (20:58)
[2024-06-14] MEDS: ASPIRIN 81 MG ECTAB PO SCH (20:59)
[2024-06-14] MEDS: ROSUVASTATIN CALCIUM 20 MG TAB PO SCH (20:59)
[2024-06-14] MEDS: CLOPIDOGREL BISULFATE 75 MG TAB PO SCH (21:00)
[2024-06-15 04:03] VITALS: TEMP 97.7
[2024-06-15 07:07] VITALS: O2SAT 98
[2024-06-15 08:30] VITALS: BP 122/78; PULSE 72
[2024-06-15] MEDS: LOSARTAN POTASSIUM 50 MG TAB PO SCH (08:31)
[2024-06-15] MEDS: buPROPion XL 300 MG TABCR PO SCH (08:32)
[2024-06-15] MEDS: dexAMETHasone 4 MG TAB PO SCH (08:32)
[2024-06-15] MEDS: amLODIPine BESYLATE 5 MG TAB PO SCH (08:33)
[2024-06-15] MEDS: PANTOprazole 40 MG TAB PO SCH (08:33)
[2024-06-15] MEDS: MULTIVITAMIN TAB PO SCH (08:33)
[2024-06-15] MEDS ORDERED: NON-FORMULARY MEDICATION (Estradiol 0.01 % (0.1 mg/gram) cream) PV SCH (09:00)
--- NOTE | 2024-06-15 09:56 | Orthopedic Progress Note ---
Date of Service June 15, 2024 Assessment & Plan (1) Status post right knee replacement: Assessment: Status post right total knee arthroplasty Plan: Overall, she is doing quite well today with good pain control of the right knee. She will work with physical therapy and Occupational Therapy today to work on ambulation and range of motion exercises. Dressings may be changed today after physical therapy. She is on aspirin for DVT prophylaxis. She may be discharged later today pending formal physical therapy evaluation and recommendations. She will follow-up in the office in 2 weeks for continued postsurgical care. She verbalized understanding and agrees with this plan. Subjective . Mandi was seen and evaluated this morning resting comfortably no apparent distress. She notes that her pain is well-controlled to her right knee. She has been up and out of bed with no significant issues. She has yet to work physical therapy today. She denies any concerns with surgical incision site. She denies any active bleeding, discharge, or signs of infection. She denies any low back pain, proximal/distal extremity pain, numbness/ting, or paresthesias. She denies any other concerns today. Review of Systems All systems reviewed & are unremarkable except as noted in HPI & below. Physical Exam . Focused exam of the right knee shows dressings in place with no signs of active bleeding, discharge, or signs of infection. No tenderness to palpation. Limited range of motion and strength due to subjective discomfort. Calf soft nontender to palpation. Negative Homans' sign. Intact plantarflexion and dorsiflexion of the right ankle. +2 DP and PT pulses. Less than 2-second capillary refill. Normal sensation. Neurovascular intact. Results & Data Results & Data Laboratory Results . Diagnostic Findings . PG Care Time/CCT Total # of Minutes Spent Total Time Spent with Patient: Total time spent is greater than 50% in coordination of care (as documented) at patient's floor/unit and/or counseling patient: Coding Level of Care Code 95175 Post Operative Follow-Up Diagnoses Status post right knee replacement Z96.651
--- NOTE | 2024-06-15 09:58 | Discharge Summary ---
Date of Service June 15, 2024 Principal Diagnosis Same as "Discharge Diagnosis" noted below under Discharge Instructions. Discharge Exam . Focused exam of the right knee shows dressings in place with no signs of active bleeding, discharge, or signs of infection. No tenderness to palpation. Limited range of motion and strength due to subjective discomfort. Calf soft nontender to palpation. Negative Homans' sign. Intact plantarflexion and dorsiflexion of the right ankle. +2 DP and PT pulses. Less than 2-second capillary refill. Normal sensation. Neurovascular intact. Discharge Data Procedures Performed Operation Date: 06/14/24 08:00 Actual Procedures p Right Total Knee Arthroplasty(Right) - Ashok Walters DO Ordered Studies 06/14/24 05:00 US - OR guided needle placemen Routine Hospital Course (1) Status post right knee replacement: Mandi arrived at [facility] on 06/14/2024 and underwent a right total knee arthroplasty performed by Dr. Walters with no complications. She had a spinal anesthetic. Postoperatively, she was started on aspirin for DVT prophylaxis and transferred to the general orthopedic floor in stable condition. Her hospital course was uneventful. On postoperative day #1, her vital signs are stable and her pain was well-controlled. She participated well with physical therapy working on ambulation and range of motion exercises. She was then discharged home in stable condition. She will follow-up with orthopedics in 2 weeks for continued postoperative management or sooner if needed. PG Care Time/CCT Total # of Minutes Spent Total Time Spent with Patient: Total time spent is greater than 50% in coordination of care (as documented) at patient's floor/unit and/or counseling patient: Discharge Plan Discharge Items Patient Disposition: Home - Home Health Services Reason For Visit: Right Knee Arthritis Discharge Diagnosis: Status Post Right TKA Activity: Per Instructions section Non-emergency contact: Surgeon Call non-emergency contact if: your temperature is above 101.5, your wound has increased redness, your wound has increased drainage and your wound pain has increased Follow-up/Referrals: Mary Castaneda DO [Primary Care Provider] - Diet: Regular Addtl Attending Provider Instructions: Activity and Therapy Recommendations: * If you are using [facility] then therapy will be provided at your home until they feel you have accomplished all of your goals. * If you are using [facility] then Physical Therapy will be provided until they feel you are ready to start Outpatient Physical Therapy. * If you are not using home therapy then Outpatient Physical Therapy should start about 3-5 days from your day of surgery. Therapy will last about 6-10 weeks * It is important not to put a pillow under your knee when you are relaxing or sleeping. It is just as important to make sure you are getting your knee perfectly straight as it is to regain your knee bend. * You were shown a series of exercises in the hospital. Do these exercises three times each day including the exercises you were shown in physical therapy. * Get up and walk several times each day. For the first four weeks, try not to stand or walk for more than one hour at a time. If you do stand or walk for more than one hour, you will not hurt anything, but your leg will likely swell. * As you feel comfortable, you may change from the walker or crutches to a cane and then to independent walking. Medications: * Narcotic You will likely be sent home from the hospital with a prescription for the narcotic pain medication that worked best throughout your stay. * Cefadroxil -take the antibiotic twice a day for 10 days to help prevent infection. * Aspirin Most patients will be required to take Aspirin 81mg twice a day for 6 weeks after surgery. This is obtained [id number] and a prescription is not necessary. * Other medications may be prescribed for specific circumstances. If you have any questions, please call the office at . * Resume previous home medications unless otherwise instructed TEDs/Elastic Stockings: The white elastic stockings help limit swelling and prevent blood clots from forming in your legs.~ The more you wear them, the more they work. Wear them for six weeks. Dressing Care: The dressing can be changed after physical therapy on postop day #1. Daily dry dressing changes for a few days, especially if the incision is still draining some. If the incision is not draining then you may leave the gretchen open to air. If there is a little bit of drainage or if the gretchen are getting stuck on your clothing then cover the incision with a dry dressing. The gretchen will be removed at your 2 week follow-up appointment. Showering: You may shower 5 days from the day of surgery as long as the incision is no longer draining. You may shower with the gretchen exposed. Let soapy water run over the gretchen and pat them dry. Do not scrub or soak the incision. Diet: You may resume your previous diet. Things To Watch For: * Drainage from the incision site that occurs more than one week after your surgery. * Increased redness at the incision site. * Fever above 102 degrees Fahrenheit. * Unusual chest pain or shortness of breath. * Call [facility] at with any of the above problems Follow-Up Visit: Follow-up with Dr. Walters's office 2-3 weeks after your day of surgery. We will remove your gretchen and answer any questions. If you have any additional questions or concerns, Dr Walters is usually in the office at the same time and will be available An appointment was probably scheduled when you signed-up for surgery in the office. If you have any questions call Office Instructions: More detailed instructions as well as Frequently Asked Questions were provided in a folder by our office when you signed-up for surgery. Please review these instructions when you get home. If you have any further questions or concerns, please feel free to call the office at [phone] Pending Studies at Discharge: No Stand-Alone Forms: My [facility], Smoking Cessation Medications and DC Order Prescriptions: New cefadroxil 500 mg capsule 500 mg PO BID 10 Days Qty: 20 0RF oxycodone 5 mg tablet 5 mg PO Q6H PRN (Reason: pain) Qty: 30 0RF aspirin 81 mg Tablet,Delayed Release (Dr/Ec) 81 mg PO BID 42 Days Qty: 0 0RF Continued losartan 100 mg tablet 100 mg PO QAM Qty: 90 3RF bupropion HCl [Wellbutrin XL] 300 mg tablet extended release 24 hr 300 mg PO QAM Qty: 90 1RF rosuvastatin [Crestor] 40 mg tablet 40 mg PO HS Qty: 90 3RF pantoprazole 40 mg tablet,delayed release (DR/EC) 40 mg PO QAM Qty: 90 1RF metoprolol succinate 50 mg tablet extended release 24 hr 50 mg PO HS Qty: 90 3RF semaglutide (weight loss) 2.4 mg/0.75 mL pen injector 2.4 mg subcut Q7D Qty: 3 5RF clopidogrel 75 mg tablet 75 mg PO HS estradiol 0.01 % (0.1 mg/gram) cream 0.25 appful vaginal DAILY Qty: 42.5 2RF Rx Instructions: Use daily for 2 weeks; use 3-4 days a week for 2 weeks; use 2-3 times a week after aspirin 81 mg capsule 81 mg PO QAM nitroglycerin [Nitrostat] 0.4 mg Tablet, Sublingual 0.4 mg sublingual Q5M PRN (Reason: chest pain) Qty: 25 5RF Rx Instructions: 1 tab under your tongue as needed for chest pain every 5 minutes. No more than 3 doses. Call 911 for persistent pain after 1st dose. amlodipine 5 mg tablet 5 mg PO QAM Admission Data Admit Date/Time: 06/14/24 09:33 Attending Provider: Ashok Walters Admit Provider: Ashok Walters Primary Care Provider: Mary Castaneda
== END 2024-06-15 11:02 | disposition home health service (06) ==
LOC: ASU 06:34 → 3E 06:34